=== PATIENT | male | born 1955 | race Caucasian/White ===

== ENCOUNTER 2016-10-31 06:51 | Observation (INO) | payer BC ==
[~2016-10-31] VITALS: Ht 190.5 cm; Wt 113.4 kg
[2016-10-31] MEDS ORDERED: ASPIRIN 81 MG CHEW PO STA (07:15)
[2016-10-31] MEDS ORDERED: DILTIAZEM HCL 5 MG/ML 5 ML VIAL IV STA (07:15)
[2016-10-31 07:34] LABS: BASO % 0.2 %; BASO ABS # 0.03 K/uL (0-0.2); COMPLETE YES; EOS % 0.6 %; HEMATOCRIT 45.2 % (42-52); IG% 0.2 %; LYMPH ABS # 2.55 K/uL (1.2-3.4); MEAN CORPUSCULAR HEMOGLOBIN 33.9 pg (25-34); MEAN CORPUSCULAR HGB CONC 36.1 g/dl (32-36); MEAN PLATELET VOLUME 10.4 fL (7.4-10.4); MONO % 8.3 %; NEUT % 75.7 %; PLATELET COUNT 274 K/uL (130-400); RED BLOOD COUNT 4.81 M/uL (4.7-6.1); WHITE BLOOD COUNT 17.05 K/uL (4.8-10.8)
[2016-10-31] MEDS ORDERED: LISI20TA3 PO (07:41)
[2016-10-31 07:42] LABS: BUN/CREATININE RATIO 15.2 (10-20); CALCIUM 8.7 mg/dl (8.5-10.1); CREATININE 0.96 mg/dl (0.60-1.40); MAGNESIUM 2.4 mg/dl (1.8-2.4); PARTIAL THROMBOPLASTIN RATIO 1.1; POTASSIUM 4.1 mmol/L (3.5-5.1); PROTHROMBIN TIME (PATIENT) 10.3 SECONDS (9.0-12.0)
--- NOTE | 2016-10-31 07:54 | EMERGENCY ROOM VISIT NOTE ---
History First contact with patient: 07:01 Chief Complaint: CARDIAC ASSESSMENT Stated Complaint: HEART FLIPPING ALL OVER Nursing Triage Summary: Patient reports pressure feeling in his left chest since around 0100. Denies any cardiac history. History of Present Illness The patient is a 61 year old male who presents to the Emergency Department by private vehicle for evaluation of palpitations. The patient reports that at 1: 30 this morning upon awakening to use restroom, he experienced palpitations in his chest. He reports that his symptoms have been ongoing since. He was able to get some sleep last night despite the symptoms. He describes a "pressure" in his chest at times bringing his discomfort a 4/10. He denies any shortness of breath, dizziness, lightheadedness, nausea, vomiting, or presyncope. He reports no history of similar symptoms. He does report a history of hypertension which is controlled with 20 mg of Cipro only. He reports no history of cholesterol issues. There is a 50 history of heart disease as his younger brother recently had double bypass. The patient denies any recent drug use. He reports that he was sick approximately one month ago, however the reports that they use no [id number] medications, specifically no Sudafed. Patient does admit to drinking approximately 32 ounces of beer per day. There is been no recent heavy alcohol use. The patient denies any nicotine use or other stimulant use. Patient denies any fevers, chills, headaches, blurry vision, double vision, slurred speech, facial droop, unilateral weakness/ numbness, hemoptysis, nausea, vomiting, abdominal pain, medication, melena, hematuria, or dysuria. Review of Systems A complete 10-point Review of Systems was discussed with the patient, with pertinent positives and negatives listed in the History of Present Illness. All remaining Review of Systems questions can be considered negative unless otherwise specified. Past Medical/Surgical History Medical Problems: (1) HTN (hypertension) (2) Obesity (BMI 30.0-34.9) Social History Smoking Status: Never Smoker Smokeless Tobacco Use: No Alcohol Use: occasionally Drug Use: none Marital Status: Housing Status: lives with family Current/Historical Medications Scheduled Lisinopril (Prinivil), 20 MG PO DAILY Allergies Coded Allergies: No Known Allergies (Unverified , +, 08/10/05) Physical Exam Vital Signs Date Time Temp Pulse Resp B/P Pulse Ox O2 Delivery O2 Flow Rate FiO2 10/31/16 08:30 78 20 122/86 100 Room Air 10/31/16 07:24 82 10/31/16 07:09 179 10/31/16 07:07 96 Room Air 10/31/16 07:07 96 Room Air 10/31/16 06:58 36.7 91 18 134/88 95 Room Air Pain Rating (0-10): 4 Physical Exam VITAL SIGNS - Vital signs and nursing notes were reviewed. GENERAL - 61-year-old male appearing his stated age who is in no acute distress. Communicates well with provider and answers questions appropriately. LUNGS - Chest wall symmetric without accessory muscle use, intercostals retractions, or central cyanosis. Normal vesicular breath sounds CTA B/L. No wheezes, rales, or rhonchi appreciated. CARDIAC - Irregularly irregular rhythm. No murmur, rubs, or gallops appreciated. No reproducible tenderness to palpation appreciated over the anterior chest wall. ABDOMEN - Abdominal contour flat and without pulsations or visible masses. BS normoactive all four quadrants. No tenderness, palpable masses, hepatosplenomegaly, or ascites noted. EXTREMITIES - No clubbing or peripheral cyanosis. No pretibial edema present. +3 /5 radial and dorsalis pedis pulses palpated throughout. +5/5 strength noted in UE/LE bilaterally. NEUROLOGIC - Cranial nerves II through XII grossly intact. Sensory intact to light touch throughout. PSYCH - A&Ox3 and cooperates fully with examiner. Pt is very pleasant and interacts well with examiner. Medical Decision & Procedures ER Provider Diagnostic Interpretation: Radiological imaging and reports were reviewed by myself. Radiologist's Interpretation as follows: CHEST ONE VIEW PORTABLE CLINICAL HISTORY: palp mental status change. Palpitations. Cardiac arrhythmia. COMPARISON STUDY: None FINDINGS: The bones soft tissues and hemidiaphragms are normal. The cardiomediastinal silhouette is normal. The lungs are clear. The pulmonary vasculature is normal. IMPRESSION: Negative chest. Laboratory Results 10/31/16 07:09 Red Blood Count 4.81, Mean Corpuscular Volume 94.0, Mean Corpuscular Hemoglobin 33.9, Mean Corpuscular Hemoglobin Concent 36.1, Mean Platelet Volume 10.4, Neutrophils (%) (Auto) 75.7, Lymphocytes (%) (Auto) 15.0, Monocytes (%) (Auto) 8.3, Eosinophils (%) (Auto) 0.6, Basophils (%) (Auto) 0.2, Neutrophils # (Auto) 12.90, Lymphocytes # (Auto) 2.55, Monocytes # (Auto) 1.42, Eosinophils # (Auto) 0.11, Basophils # (Auto) 0.03 10/31/16 07:09 Test 10/31/16 07:09 White Blood Count 17.05 K/uL (4.8-10.8) Red Blood Count 4.81 M/uL (4.7-6.1) Hemoglobin 16.3 g/dL (14.0-18.0) Hematocrit 45.2 % (42-52) Mean Corpuscular Volume 94.0 fL (80-100) Mean Corpuscular Hemoglobin 33.9 pg (25-34) Mean Corpuscular Hemoglobin Concent 36.1 g/dl (32-36) Platelet Count 274 K/uL (130-400) Mean Platelet Volume 10.4 fL (7.4-10.4) Neutrophils (%) (Auto) 75.7 % Lymphocytes (%) (Auto) 15.0 % Monocytes (%) (Auto) 8.3 % Eosinophils (%) (Auto) 0.6 % Basophils (%) (Auto) 0.2 % Neutrophils # (Auto) 12.90 K/uL (1.4-6.5) Lymphocytes # (Auto) 2.55 K/uL (1.2-3.4) Monocytes # (Auto) 1.42 K/uL (0.11-0.59) Eosinophils # (Auto) 0.11 K/uL (0-0.5) Basophils # (Auto) 0.03 K/uL (0-0.2) RDW Standard Deviation 43.3 fL (36.4-46.3) RDW Coefficient of Variation 12.6 % (11.5-14.5) Immature Granulocyte % (Auto) 0.2 % Immature Granulocyte # (Auto) 0.04 K/uL (0.00-0.02) Prothrombin Time 10.3 SECONDS (9.0-12.0) Prothromb Time International Ratio 1.0 (0.9-1.1) Activated Partial Thromboplast Time 27.5 SECONDS (21.0-31.0) Partial Thromboplastin Ratio 1.1 Anion Gap 11.0 mmol/L (3-11) Est Creatinine Clear Calc Drug Dose 112.5 ml/min Estimated GFR () 99.9 Estimated GFR (Non- 86.2 BUN/Creatinine Ratio 15.2 (10-20) Calcium Level 8.7 mg/dl (8.5-10.1) Magnesium Level 2.4 mg/dl (1.8-2.4) Total Bilirubin 0.3 mg/dl (0.2-1) Aspartate Amino Transf (AST/SGOT) 12 U/L (15-37) Alanine Aminotransferase (ALT/SGPT) 21 U/L (12-78) Alkaline Phosphatase 77 U/L (45-117) Total Protein 7.0 gm/dl (6.4-8.2) Albumin 3.6 gm/dl (3.4-5.0) Globulin 3.4 gm/dl (2.5-4.0) Albumin/Globulin Ratio 1.1 (0.9-2) Lipase 200 U/L (73-393) Thyroid Stimulating Hormone (TSH) 0.933 uIu/ml (0.300-4.500) Lyme Disease IgG Antibody NEG (NEG) Lyme Disease IgM Antibody NEG (NEG) Medications Administered Medications (Trade) Dose Ordered Sig/Edison Route Start Time Stop Time Status Last Admin Dose Admin Aspirin 243 mg 243 mg NOW STAT PO 10/31/16 07:15 10/31/16 07:21 DC 10/31/16 07:34 243 MG Sodium Chloride (Nss 1000ml) 1,000 ml @ 999 mls/hr Q1H1M ONCE IV 10/31/16 09:30 10/31/16 10:30 DC 10/31/16 12:24 999 MLS/HR Metoprolol Succinate (Toprol Xl Tab) 50 mg NOW STAT PO 10/31/16 09:26 10/31/16 10:06 DC 10/31/16 14:41 50 MG Procedure Patient was placed on the air sampling and monitoring and monitored throughout the entire extent of their stay. In addition, the patient's pulse oximetry was monitored throughout the entire stay. Any abnormalities or aberrancies were addressed appropriately. ECG Indication: palpitations Rate (beats per minute): 175 Rhythm: atrial fibrillation Findings: no acute ischemic change Comparison ECG Date: no prior available Change: Repeat EKG at 0733 demonstrates return to normal sinus rhythm at a rate of 87 bpm. No acute ischemic changes otherwise. ED Course Patient was seen and evaluated by myself. Labs were drawn, saline lock in place. EKG and chest x-ray were obtained. On initial evaluation, the patient' s heart rate fluctuated to the 180s. The patient remained symptomatic. Case was discussed my attending physician who agrees with diagnostic approach and treatment plan. The patient was ordered 243 mg baby aspirin as well as initial 20 mg bolus of Cardizem intravenously. I was contacted by nursing staff reports that just prior to giving the Cardizem, the patient converted to normal sinus. A repeat EKG was obtained which demonstrated a normal sinus rhythm at a rate of 87 beats per minute. Patient was reevaluated and reports no palpitations at this point. Laboratory results demonstrate a moderate leukocytosis of greater than 17,000. The patient is not anemic. There is no significant electrolyte abnormalities. Troponin was elevated at 0.067. Lyme titer was found to be negative. Laboratory results and imaging studies were reviewed with the patient and family who acknowledges understanding. Case was discussed with the [facility] hospitalist who agrees to accept the patient for further evaluation and management. The patient was admitted in stable condition. Medical Decision Given the patient's presentation and stated complaints, I did elect to perform the above-mentioned workup. The patient presents with complaints of palpitations. Patient was initially asymptomatic despite a heart rate of greater than 180. I did elect to treat the patient with Cardizem, however at the time of treatment, the patient converted back to normal sinus rhythm. Initial heart rate was only 91 in triage. I suspect the patient has been experiencing paroxysmal atrial fibrillation throughout the night. His white blood cell count was elevated suggesting moderate stress likely related to his tachycardia. Despite his symptoms, the patient is completely asymptomatic. His troponin was elevated likely secondary to ongoing atrial fibrillation symptoms. Patient was treated with a full dose of aspirin in the emergency setting. He remains a symptomatically and with a normal sinus rhythm on monitor. Patient does have significant family history of cardiac disease with his younger brother recently having bypass. I feel that this is warranting further evaluation from inpatient standpoint. The patient was admitted in stable condition. In the evaluation and treatment of this patient, the following differential diagnoses were considered: TN, ASC, Dysrhythmia, Angina, Mediastinitis, GERD, Esophagitis, PE, Pneumonia, Bronchitis, Costochondritis, Rib Fracture, Zoster. Impression Primary Impression: Atrial fibrillation with rapid ventricular response Departure Information Dispostion Admitted as an inpatient Condition FAIR Referrals Adryan Stallworth M.D. (PCP) Patient Instructions [facility]
[2016-10-31 08:06] LABS: ALB/GLOB RATIO 1.1 (0.9-2); THYROID STIMULATING HORMONE 0.933 uIu/ml (0.300-4.500)
--- NOTE | 2016-10-31 08:13 | DIAGNOSTIC IMAGING REPORT ---
CHEST ONE VIEW PORTABLE CLINICAL HISTORY: palp mental status change. Palpitations. Cardiac arrhythmia. COMPARISON STUDY: None FINDINGS: The bones soft tissues and hemidiaphragms are normal. The cardiomediastinal silhouette is normal. The lungs are clear. The pulmonary vasculature is normal. IMPRESSION: Negative chest. Electronically signed by: Miguel Faith M.D. 10/31/2016 8:12 AM Dictated Date/Time: 10/31/2016 8:11 AM
[2016-10-31 08:22] LABS: LYME DISEASE AB IGG NEG (NEG); LYME DISEASE AB IGM NEG (NEG)
[2016-10-31] MEDS ORDERED: METOPROLOL SUCC 50MG EXT REL TAB PO STA (09:26)
--- NOTE | 2016-10-31 09:26 | History and Physical ---
History & Physical Date & Time of Service: Oct 31, 2016 at 08:59 Chief Complaint: Heart Flipping All Over Primary Care Physician: Adryan Stallworth M.D. History of Present Illness Source: patient, hospital records This patient is a pleasant 61-year-old male that presents emergency department this morning complaining of a fluttering with his heart that started around 1 in the morning. It has been fairly constant since. He denies any dizziness or lightheadedness. He did feel some chest pressure on the left side of his chest. That has now dissipated. He denies any recent illnesses. In the emergency department, the patient was found to be in A. fib with RVR. Heart rate was in the 180s. Blood pressure was stable. Medications were ordered, however the patient spontaneously converted back into normal sinus rhythm on his own. The patient denies any new medications. He denies any increase in caffeine intake recently. No recent changes in exercise programs. He does admit to drinking approximately 32 ounces of beer each night. This has not recently changed. He does not smoke. He denies any known history of heart disease. Past Medical/Surgical History Hypertension Family History Father-had a stent placed in his 80s Brother had bypass surgery at the age of 57 Mother-cancer Social History Smoking Status: Never Smoker Smokeless Tobacco Use: No Alcohol Use: heavy (drinks approximately 32 ounces of beer a night) Drug Use: none Marital Status: Housing status: lives with significant other Occupational Status: unemployed ([id number] father) Multi-Drug Resistant Organisms History of MDRO: No Allergies Coded Allergies: No Known Allergies (Unverified , +, 08/10/05) Home Medications Scheduled Lisinopril (Prinivil), 20 MG PO DAILY Review of Systems 10 system review performed and negative unless noted in HPI or below Physical Exam Vital Signs Date Time Temp Pulse Resp B/P Pulse Ox O2 Delivery O2 Flow Rate FiO2 10/31/16 08:30 78 20 122/86 100 Room Air 10/31/16 07:09 179 10/31/16 07:07 96 Room Air 10/31/16 07:07 96 Room Air 10/31/16 06:58 36.7 91 18 134/88 95 Room Air General Appearance: no apparent distress Head: normocephalic Eyes: EOMI Neck: no JVD Respiratory/Chest: lungs clear Cardiovascular: regular rate, rhythm, no murmur Abdomen/GI: normal bowel sounds, non tender, soft Extremities/Musculoskelatal: no calf tenderness, no pedal edema Neurologic/Psych: no motor/sensory deficits, oriented x 3 Skin: warm/dry Diagnostics Laboratory Results Results Past 24 Hours Test 10/31/16 07:09 Range/Units White Blood Count 17.05 4.8-10.8 K/uL Red Blood Count 4.81 4.7-6.1 M/uL Hemoglobin 16.3 14.0-18.0 g/dL Hematocrit 45.2 42-52 % Mean Corpuscular Volume 94.0 80-100 fL Mean Corpuscular Hemoglobin 33.9 25-34 pg Mean Corpuscular Hemoglobin Concent 36.1 32-36 g/dl Platelet Count 274 130-400 K/uL Mean Platelet Volume 10.4 7.4-10.4 fL Neutrophils (%) (Auto) 75.7 % Lymphocytes (%) (Auto) 15.0 % Monocytes (%) (Auto) 8.3 % Eosinophils (%) (Auto) 0.6 % Basophils (%) (Auto) 0.2 % Neutrophils # (Auto) 12.90 1.4-6.5 K/uL Lymphocytes # (Auto) 2.55 1.2-3.4 K/uL Monocytes # (Auto) 1.42 0.11-0.59 K/uL Eosinophils # (Auto) 0.11 0-0.5 K/uL Basophils # (Auto) 0.03 0-0.2 K/uL RDW Standard Deviation 43.3 36.4-46.3 fL RDW Coefficient of Variation 12.6 11.5-14.5 % Immature Granulocyte % (Auto) 0.2 % Immature Granulocyte # (Auto) 0.04 0.00-0.02 K/uL Prothrombin Time 10.3 9.0-12.0 SECONDS Prothromb Time International Ratio 1.0 0.9-1.1 Activated Partial Thromboplast Time 27.5 21.0-31.0 SECONDS Partial Thromboplastin Ratio 1.1 Sodium Level 147 136-145 mmol/L Potassium Level 4.1 3.5-5.1 mmol/L Chloride Level 110 98-107 mmol/L Carbon Dioxide Level 26 21-32 mmol/L Anion Gap 11.0 3-11 mmol/L Blood Urea Nitrogen 15 7-18 mg/dl Creatinine 0.96 0.60-1.40 mg/dl Est Creatinine Clear Calc Drug Dose 112.5 ml/min Estimated GFR () 99.9 Estimated GFR (Non- 86.2 BUN/Creatinine Ratio 15.2 10-20 Random Glucose 99 70-99 mg/dl Calcium Level 8.7 8.5-10.1 mg/dl Magnesium Level 2.4 1.8-2.4 mg/dl Total Bilirubin 0.3 0.2-1 mg/dl Aspartate Amino Transf (AST/SGOT) 12 15-37 U/L Alanine Aminotransferase (ALT/SGPT) 21 12-78 U/L Alkaline Phosphatase 77 45-117 U/L Total Creatine Kinase 48 39-308 U/L Creatine Kinase MB 1.9 0.5-3.6 ng/ml Creatine Kinase MB Ratio 4.0 0-3.0 Troponin I 0.067 0-0.045 ng/ml Total Protein 7.0 6.4-8.2 gm/dl Albumin 3.6 3.4-5.0 gm/dl Globulin 3.4 2.5-4.0 gm/dl Albumin/Globulin Ratio 1.1 0.9-2 Lipase 200 73-393 U/L Thyroid Stimulating Hormone (TSH) 0.933 0.300-4.500 uIu/ml Lyme Disease IgG Antibody NEG NEG Lyme Disease IgM Antibody NEG NEG Diagnostic Radiology CHEST ONE VIEW PORTABLE CLINICAL HISTORY: palp mental status change. Palpitations. Cardiac arrhythmia. COMPARISON STUDY: None FINDINGS: The bones soft tissues and hemidiaphragms are normal. The cardiomediastinal silhouette is normal. The lungs are clear. The pulmonary vasculature is normal. IMPRESSION: Negative chest. EKG Vent. rate 175 BPM CA interval * ms QRS duration 86 ms QT/QTc 266/453 ms P-R-T axes * -14 49 Atrial fibrillation with rapid ventricular response Abnormal ECG No previous ECGs available 10/31/2016 07:05 Impression Assessment and Plan 61-year-old gentleman presents emergency department with heart palpitations and mild chest pressure found to be in rapid atrial fibrillation with a rate of 175 bpm-spontaneously converted in the emergency department. Labs notable for a mild elevation in troponin 0.067 and a white count of 17,000. Sodium is 147. Possibly mild dehydration. Patient does admit to having mild flulike symptoms 3 weeks ago that have improved. Could be an exacerbating factor A fib with RVR -Check echo -Trend cardiac enzymes -Start Xarelto -Begin Toprol-XL 50 mg daily per attending -We will decrease his lisinopril to 10 mg daily -Check nocturnal pulse oximetry-?? SELENE Leukocytosis-?stress response. Pt did have 2 tick bites this week--lyme screen neg. Flu like sx-improved -check CBC in AM HTN-BP stable -Decrease in cerebral is noted above DVT prophylaxis -Xarelto -TEDS, SCDs CODE STATUS -LEVEL I FULL CODE Level of Care Telemetry Resuscitation Status FULL RESUSCITATION VTE Prophylaxis VTE Risk Assessment Done? Y/N: Yes Risk Level: Low Given or contraindicated: Other Anticoagulation, T.E.D. Stockings, SCD's Note Patient was seen and examined by myself I personally discussed the above A&P with Miss Michelet 61-year-old male that presents emergency department this morning complaining of palpitation found to be in A. fib with RVR. denies any chest pain, Will check TSH 2D echo cardiology consult nocturnal pulse ox lipids/HgbA1C initiate AC B rin decrease ACEI to make room for B Rin
[2016-10-31] MEDS ORDERED: MAGNESIUM HYDROXIDE SUSP 30 ML UDC PO PRN (09:30)
[2016-10-31] MEDS ORDERED: ALUMINUM/MAGNESIUM/SIMETH (MAALOX MAX) 30 ML UDC PO PRN (09:30)
[2016-10-31] MEDS ORDERED: ONDANSETRON INJ 2 MG/ML 2 ML VIAL IV PRN (09:30)
[2016-10-31] MEDS ORDERED: ACETAMINOPHEN 325 MG TAB PO PRN (09:30)
[2016-10-31] MEDS ORDERED: SODIUM CHLORIDE 0.9% 1000ML 1,000 ML IV ONE (09:30)
[2016-10-31 09:45] VITALS: BP 122/86; PULSE 74; TEMP 36.7; O2SAT 98; Ht 190.5 cm; Wt 113.4 kg
[2016-10-31 10:20] VITALS: O2SAT 100
[2016-10-31] MEDS ORDERED: IV FLUIDS COMPLETED PRN (10:30)
[2016-10-31 11:08] VITALS: BP 155/92; PULSE 76; TEMP 36.8; O2SAT 98
[2016-10-31] MEDS ORDERED: RIVAROXABAN 20 MG TAB PO SCH (12:00)
--- NOTE | 2016-10-31 14:01 | ECHOCARDIOGRAM REPORT ---
*NOTICE TO RECEIVING LIBERTARIAN AGENCY This information is strictly Confidential and protected under [place] law. [place] law prohibits you from making any further disclosure of this information unless further disclosure is expressly permitted by the written consent of the person to whom it pertains or is authorized by law. A general authorization for the release of medical or other information is not sufficient for this purpose. Hospital accepts no responsibility if the information is made available to any other person, INCLUDING THE PATIENT. Interpretation Summary * Name: SANDRA SON Study Date: 10/31/2016 10:04 AM BP: 142/90 mmHg * Patient Location: [facility] HR: 79 * : 1955 (M/d/yyyy) Gender: Male Height: 75 in * Age: 61 yrs Ethnicity: CA Weight: 249 lb * Ordering Physician: Margaux Tafoya * Referring Physician: CHUCKY * Performed By: Mary Patrick RDCS * * Reason For Study: AFIB * BSA: 2.4 m2 * History: AFIB * -- Conclusions -- * 1. Borderline dilated LV. Mild concentric LVH. * 2. Normal LV systolic function. LVEF 55-60%. No regional wall motion abnormalities. Grade 2 diastolic dysfunction. * 3. Mildly dilated RV with normal RV function. Moderate RA dilation. * 4. No significant valvular pathology. * 5. No prior studies for comparison. Procedure Details * A complete two-dimensional transthoracic echocardiogram was performed (2D, M-mode, Doppler and color flow Doppler). Left Ventricle * The left ventricle is borderline dilated. * There is mild concentric left ventricular hypertrophy. * The basal septum is thickened and angulated consistent with sigmoid septum. * Ejection Fraction = 55-60%. Right Ventricle * The right ventricle is mildly dilated. * The right ventricular systolic function is normal as assessed by tricuspid annular plane systolic excursion (TAPSE) (normal >1.5 cm). Atria * The left atrium is mildly dilated. * The right atrium is moderately dilated. * No ASD detected; PFO is not assessed. Mitral Valve * The mitral valve leaflets appear thickened, but open well. * Mitral stenosis is absent. * Significant mitral regurgitation is absent. Tricuspid Valve * The tricuspid valve is not well visualized, but is grossly normal. * There is no tricuspid stenosis. * Significant tricuspid regurgitation is absent. Aortic Valve * The aortic valve opens well. * The aortic valve is trileaflet. * No hemodynamically significant valvular aortic stenosis. * There is no significant aortic regurgitation. Pulmonic Valve * The pulmonary valve is inadequately visualized, but the Doppler data is adequate for interpretation. * Mild pulmonic valvular regurgitation. Great Vessels * Borderline dilated ascending aorta. * No Doppler or imaging evidence of an aortic coarctation. Pericardium/Pleural * There is no pericardial effusion. Great Vessels * IVC < 2.1, <50% change with respiration Left Ventricular Diastolic Function * Diastolic dysfunction, Grade II (pseudonormalization pattern). MMode 2D Measurements and Calculations IVSd 1.4 cm IVSs 2.1 cm LVIDd 5.5 cm LVIDs 3.7 cm LVPWd 1.2 cm LVPWs 1.7 cm IVS/LVPW 1.1 FS 33.2 % EDV(Teich) 147.2 ml ESV(Teich) 57.1 ml EF(Teich) 61.2 % EDV(cubed) 166.0 ml ESV(cubed) 49.5 ml EF(cubed) 70.2 % % IVS thick 48.2 % % LVPW thick 40.7 % LV mass(C)d 305.3 grams LV mass(C)dI 126.8 grams/m\S\2 LV mass(C)s 302.9 grams LV mass(C)sI 125.7 grams/m\S\2 SV(Teich) 90.1 ml SI(Teich) 37.4 ml/m\S\2 SV(cubed) 116.5 ml SI(cubed) 48.4 ml/m\S\2 Ao root diam 3.9 cm Ao root area 11.9 cm\S\2 LA dimension 4.2 cm LA/Ao 1.1 LVAd ap4 41.0 cm\S\2 LVLd ap4 9.9 cm EDV(MOD-sp4) 141.5 ml EDV(sp4-el) 145.0 ml LVAs ap4 24.1 cm\S\2 LVLs ap4 8.2 cm ESV(MOD-sp4) 64.6 ml ESV(sp4-el) 60.3 ml EF(MOD-sp4) 54.3 % EF(sp4-el) 58.4 % LVAd ap2 39.6 cm\S\2 LVLd ap2 9.9 cm EDV(MOD-sp2) 133.4 ml EDV(sp2-el) 134.2 ml LVAs ap2 24.0 cm\S\2 LVLs ap2 8.6 cm ESV(MOD-sp2) 65.0 ml ESV(sp2-el) 57.0 ml EF(MOD-sp2) 51.3 % EF(sp2-el) 57.6 % LVLd %diff 0.62 % EDV(MOD-bp) 137.1 ml LVLs %diff 4.7 % ESV(MOD-bp) 66.3 ml EF(MOD-bp) 51.7 % SV(MOD-sp4) 76.8 ml SI(MOD-sp4) 31.9 ml/m\S\2 SV(MOD-sp2) 68.4 ml SI(MOD-sp2) 28.4 ml/m\S\2 SV(MOD-bp) 70.8 ml SI(MOD-bp) 29.4 ml/m\S\2 SV(sp4-el) 84.7 ml SI(sp4-el) 35.2 ml/m\S\2 SV(sp2-el) 77.2 ml SI(sp2-el) 32.1 ml/m\S\2 Doppler Measurements and Calculations MV E max funmi 63.4 cm/sec MV A max funmi 55.7 cm/sec MV E/A 1.1 MV dec time 0.29 sec Ao V2 max 129.9 cm/sec Ao max PG 6.8 mmHg Ao max PG (full) 2.8 mmHg LV V1 max PG 4.0 mmHg LV V1 max 99.4 cm/sec
[2016-10-31 15:10] LABS: URINE APPEARANCE TURBID (CLEAR); URINE BILIRUBIN NEG (NEG); URINE COLOR YELLOW; URINE NITRITE NEG (NEG); URINE PH 8.5 (4.5-7.5); URINE SPECIFIC GRAVITY 1.018 (1.000-1.030); UROBILINOGEN NEG (NEG); ZZUR CULT IF INDIC CLEAN CATCH NO
[2016-10-31 15:11] LABS: MANUAL MICROSCOPIC REQUIRED? NO; REVIEW REQ? NO
[2016-10-31 15:23] VITALS: BP 160/93; PULSE 66; TEMP 36.7; O2SAT 95
[2016-10-31 15:31] LABS: BENZODIAZEPINE, URINE NEG (NEG); COCAINE,URINE NEG (NEG); PHENCYCLIDINE, URINE NEG (NEG)
[2016-10-31 16:01] LABS: CKMB/CK RATIO 3.2 (0-3.0)
[2016-10-31 19:10] VITALS: BP 155/93; PULSE 68; TEMP 37; O2SAT 95
--- NOTE | 2016-10-31 23:39 | CARDIOLOGY CONSULTATION REPORT ---
DATE OF CONSULTATION: 10/31/2016 REASON FOR CONSULTATION: New onset of Atrial Fibrillation with RVR. HISTORY OF PRESENT ILLNESS: Mr. Karimi is a very pleasant 61-year-old white male with a history of longstanding Hypertension, who presented acutely to Emergency Room earlier today complaining of fluttering in his chest which began between 1 and 2 a.m. this morning. He got up to use the restroom at that time of the night, and he could feel his heart racing. He did note some left-sided chest pressure with this, but denies any associated nausea, vomiting, diaphoresis, or dyspnea. He has never experienced anything like this before. The patient denies any prior cardiac history or prior cardiac events. He denies any history of CAD, CT, CHF, rheumatic fever or any prior dysrhythmias. He does not have any history of stroke or mini stroke. He is not a diabetic. Please note that the patient converted back to a normal sinus rhythm spontaneously while in the Emergency Room. The patient is currently being seen in room 238 bed 1, and he offers no complaints. He specifically denies any further palpitations or tachy palpitations. He denies any chest pain, heaviness, tightness, or pressure. No neck, jaw, back, or arm pain. No shortness of breath, dyspnea on exertion, or any recent changes in exertional tolerance. He further denies any orthopnea, PND, syncope, or near syncope. HOME MEDICATIONS: Lisinopril 20 mg daily. CURRENT MEDICATIONS: 1. Lisinopril 10 mg daily. 2. Xarelto 20 mg daily. 3. Tylenol p.r.n. 4. Maalox Max p.r.n. 5. Milk of magnesia p.r.n. 6. Zofran 4 mg IV q. 6 hours p.r.n. for nausea. ALLERGIES: NKDA. PAST MEDICAL HISTORY: 1. Hypertension. SOCIAL HISTORY: The patient is and lives in the [facility]. 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 Drinks approximately 32 ounces of beer each evening. He is a lifelong nonsmoker. FAMILY HISTORY: Significant for CAD in his father who had a stent placed in his 80s. He has a younger brother who had lymphoma with full mantle radiation and who subsequently had CABG x2 vessels at the age of 57. Mother had cancer. PHYSICAL EXAMINATION: VITAL SIGNS: Temperature is 36.7 degrees Celsius, pulse is 74 and regular, respiratory rate is 14 and unlabored, blood pressure is 122/86. SpO2 is 98% on room air. GENERAL: The patient is in no acute distress. HEENT: Head is atraumatic and normocephalic. EOMs intact. Sclerae are anicteric. Face is symmetric. No perioral cyanosis. Mucous membranes moist. NECK: Without thyromegaly, adenopathy or JVD. Carotid upstrokes are +2 bilaterally without bruits. CHEST AND LUNGS: Clear to auscultation throughout lung lynn. No wheezes, rales or rhonchi. CARDIOVASCULAR: S1 and S2 are regular without murmur, gallops or rubs. PMI is not displaced. No lifts, heaves, or thrills. No abdominal, aortic or renal bruits. ABDOMINAL EXAMINATION: Bowel sounds are present. No masses, organomegaly, or tenderness. EXTREMITIES: Without clubbing, cyanosis or edema. NEUROLOGIC EXAMINATION: The patient is awake, alert and oriented. Pleasant and cooperative. Answers questions appropriately. Speech is clear. Normal movement in all 4 extremities. EKG on admission shows AFib with RVR, ventricular response rate is approximately 175 beats per minute. No ST segment or T-wave abnormalities. A follow up EKG following spontaneous conversion shows normal sinus rhythm at a rate of 85 beats per minute with normal R-wave progression, no acute changes. LABORATORIES: Lyme titer is negative. White blood cell count is 17.05, hemoglobin 16.3 g/dL, hematocrit 45.2%, platelet count is 274,000. Sodium is 147 mmol/L, potassium 4.1 mmol/L, BUN is 15 mg/dL and creatinine 0.96 mg/dL. Random glucose 99 mg/dL, magnesium normal at 2.4 mg/dL. Total CK is 48 with CK-MB of 1.9. Initial Troponin I is 0.067 ng/mL. TSH normal at 0.933. Chest x-ray is unremarkable. ASSESSMENT: 1. New onset of Atrial Fibrillation with rapid ventricular response. 2. Status post spontaneous conversion to normal sinus rhythm. 3. Sensation of left-sided chest pressure with rapid ventricular response rate with mildly elevated troponin I level. 4. CHADS-VASc score is 1 (based on hypertension). PLAN: 1. I had a long discussion with the patient regarding what atrial fibrillation is, the natural history of atrial fibrillation, and management strategies for the treatment of this condition. 2. He is currently in a normal sinus rhythm. 3. Recommend starting Toprol-XL 50 daily. 4. Continue lisinopril 10 mg daily. 5. Agree with Xarelto for the time being. Because he has a low CHADS-VASc score, could consider discontinuing this in the future. 6. He is aware of his elevated troponin I level. Continue to trend cardiac enzymes. This is most likely myocardial O2 supply-demand mismatch related to fast rate for > 5 hours; however, could not say for certain that he does not have some underlying CAD. Could consider cardiac catheterization in the future versus outpatient stress testing. 7. Agree with obtaining echocardiogram. 8. We will continue to follow along while hospitalized. AGGIE
[2016-10-31 23:50] LABS: CKMB/CK RATIO 4.3 (0-3.0)
[2016-11-01] VITALS: BP 153/85; PULSE 65; TEMP 36.6; O2SAT 96
[2016-11-01 03:50] VITALS: BP 143/82; PULSE 62; TEMP 36.8; O2SAT 97
[2016-11-01 07:33] VITALS: BP 149/103; PULSE 74; TEMP 37.1; O2SAT 95
[2016-11-01 07:50] LABS: BASO % 0.1 %; BASO ABS # 0.01 K/uL (0-0.2); COMPLETE YES; HEMATOCRIT 41.9 % (42-52); IG% 0.1 %; LYMPH % 22.2 %; LYMPH ABS # 1.75 K/uL (1.2-3.4); MEAN CELL VOLUME 94.4 fL (80-100); MEAN CORPUSCULAR HEMOGLOBIN 32.7 pg (25-34); MEAN CORPUSCULAR HGB CONC 34.6 g/dl (32-36); MEAN PLATELET VOLUME 10.4 fL (7.4-10.4); MONO % 9.5 %; NEUT % 67.1 %; PLATELET COUNT 211 K/uL (130-400); RED BLOOD COUNT 4.44 M/uL (4.7-6.1); WHITE BLOOD COUNT 7.89 K/uL (4.8-10.8)
[2016-11-01 08:06] LABS: ESTIMATED AVERAGE GLUCOSE 97 mg/dl; HA1C FLAG Normal (Normal)
[2016-11-01 08:15] LABS: BUN/CREATININE RATIO 15.2 (10-20); CALCIUM 8.2 mg/dl (8.5-10.1); CREATININE 0.81 mg/dl (0.60-1.40); MAGNESIUM 2.4 mg/dl (1.8-2.4); POTASSIUM 3.8 mmol/L (3.5-5.1)
[2016-11-01] MEDS ORDERED: LISINOPRIL 10 MG TAB PO SCH (09:00)
[2016-11-01] MEDS ORDERED: METOPROLOL SUCC 50MG EXT REL TAB PO SCH (09:00)
--- NOTE | 2016-11-01 10:32 | CARDIOLOGY PROGRESS NOTE ---
DATE: 11/01/2016 HISTORY OF PRESENT ILLNESS: Mr. Karimi is a very pleasant 61-year-old white male with history of longstanding hypertension, who presented acutely to [facility] on 10/31/2016 complaining of "fluttering" in his chest which began 5 hours before presentation. He was noted to be in rapid atrial fibrillation with a ventricular response rate of 175-185 beats per minute. No acute changes on his EKG otherwise. He did subsequently bump his troponin I level slightly, which raises a spectra of possible CAD. The patient spontaneously converted back to a normal sinus rhythm shortly after arriving at the Emergency Room. He has remained in a normal sinus rhythm since that time on telemetry monitoring. The patient offers no complaints today. He feels well. He denies any chest pain, heaviness, tightness or pressure. No neck, jaw, back or arm pain. No shortness of breath, unusual dyspnea on exertion, orthopnea or PND. No recurrent palpitations or fluttering. No syncope or near syncope. PHYSICAL EXAMINATION: VITAL SIGNS: Temperature is 37.1 degrees Celsius, pulse 70 and regular, respiratory rate is 14 and unlabored, blood pressure is 150/100, SpO2 is 95% on room air. HEENT: Head is atraumatic, normocephalic. EOMs intact. Sclerae are anicteric. Facies symmetric. No perioral cyanosis. Mucous membranes moist. NECK: Without thyromegaly, adenopathy or JVD. Carotid upstrokes +2 bilaterally without bruits. CHEST AND LUNGS: Clear to auscultation throughout all lung lynn. No wheezes, rales or rhonchi. CARDIOVASCULAR: S1 and S2 are regular without murmur, gallop or rub. PMI is nondisplaced. No lifts, heaves or thrills. No abdominal, aortic or renal bruits. ABDOMEN: Bowel sounds present. No masses, organomegaly or tenderness. EXTREMITIES: Without clubbing, cyanosis or edema. Intact posterior tibial and radial pulses bilaterally. Maico's test positive bilaterally. NEUROLOGIC: The patient is awake, alert and oriented. Pleasant and cooperative. Answers questions appropriately. Speech is clear. Normal movement in all 4 extremities. EKG performed this morning shows normal sinus rhythm at the rate of 64 beats per minute. No abnormalities noted. LABORATORY DATA: White blood cell count is 7.89. Hemoglobin 14.5 g/dL, hematocrit 41.9%, platelet count 211,000. Sodium is 140 mmol/L, potassium 3.8 mmol/L, BUN is 12 mg/dL, creatinine of 0.81 mg/dL. Random glucose is 104 mg/dL. Total CKs are 35, 38, and 48 units per liter with respective CK-MBs of 1.5, 1.2, and 1.9. Troponin I level, 0.135, 0.121, and 0.067 ng/mL. Urine drug screen positive for marijuana. Lyme titer negative. Telemetry monitoring reveals normal sinus rhythm throughout his hospital stay. ASSESSMENT: 1. New onset PAF with rapid ventricular response. 2. Elevated troponin I level -- Likely secondary to myocardial O2 supply-demand mismatch after being markedly tachycardic for > 5 hours. However, cannot rule out underlying coronary artery disease. 3. Longstanding hypertension. 4. CHADS-VASc score is 1 (based on hypertension). 5. Slight chest pressure associated with rapid atrial fibrillation. 6. No signs or symptoms of heart failure. 7. No signs or symptoms of stroke or mini stroke. PLAN: 1. The patient remains in a normal sinus rhythm. 2. Recommend discharging the patient to home on Toprol-XL 50 mg daily and Xarelto 20 mg daily. 3. Continue Lisinopril 10 mg a day. 4. I have discussed his abnormal cardiac enzymes and what this may signify. He verbalizes understanding of this discussion. 5. We will plan on meeting with the patient within the next 3-4 weeks in the office, and we will discuss cardiac catheterization for further evaluation of coronary anatomy at that time. 6. All of the patient and his 's questions were answered to their satisfaction. Our office will contact him with a followup visit in 3-4 weeks. Thank you for asking us to see this patient in consultation. AGGIE
[2016-11-01 11:33] VITALS: BP 154/86; PULSE 65; TEMP 36.9; O2SAT 96
[2016-11-01] MEDS ORDERED: XRL20 PO (11:36)
[2016-11-01] MEDS ORDERED: TPRSR50 PO (11:36)
[2016-11-01] MEDS ORDERED: LSN10 PO (11:36)
--- NOTE | 2016-11-01 11:37 | Discharge Instructions ---
Discharge Instructions Admission Admission Date: Oct 31, 2016 at 09:34 Admission Diagnosis: Atrial Fibrillation With Rvr. Discharge Care Plan - Problem: Medical Problems: (1) Atrial fibrillation with rapid ventricular response Care Plan - Goal(s): Improve function Care Plan - Instructions: Activity Recommendations: no limitations Recommended Home Diet: 1800 Nick Wt Reduction * Call 911 or immediately go to the Hospital Emergency Department nearest your location if you feel you have an emergent problem. Inpt VTE Proph given/why not?: Other Anticoagulation, T.E.D. Stockings, SCD's Laboratory Results Test Results: Hemoglobin A1c Test 11/01/16 07:18 Range/Units Estimated Average Glucose 97 mg/dl Hemoglobin A1c 5.0 4.5-5.6 % Lipid Panel Test 11/01/16 07:18 Range/Units Triglycerides Level 173 H 0-150 mg/dl Cholesterol Level 175 0-200 mg/dl HDL Cholesterol 44 mg/dl Cholesterol/HDL Ratio 4.0 LDL Cholesterol, Calculated 96 mg/dl Miah Maxwell Recommendations: Call your doctor if: * Temperature above 101 degrees * Pain not relieved by pain medicine ordered * There is increased drainage or redness from any incision * You have any unanswered questions or concerns. Your Doctors Instructions noted above were prepared by provider Fanny Forrester.
[2016-11-01 12:02] VITALS: BP 154/86; PULSE 65; TEMP 36.9; O2SAT 96
--- NOTE | 2016-11-01 12:15 | Discharge Summary ---
Discharge Summary Admission Date: Oct 31, 2016 at 09:34 Discharge Date: Nov 01, 2016 Discharge Disposition: Home Problems/Secondary Diagnoses: A fib with RVR Leukocytosis/reactive HTN-BP stable Medication Reconciliation New Medications: Lisinopril (Zestril) 10 Mg Tab 10 MG PO DAILY for 30 Days, #30 TAB 1 Refill Metoprolol Succinate (Metoprolol Succinate ER) 50 Mg Tabcr 50 MG PO QAM for 30 Days, #30 TAB 1 Refill Rivaroxaban (Xarelto) 20 Mg Tab 20 MG PO QDD for 30 Days, #30 TAB 1 Refill Discontinued Medications: Lisinopril (Prinivil) 20 Mg Tab 20 MG PO DAILY, TAB Referrals At Discharge Follow up Referrals: Wink Cutter Operator Referral - Within a Month with Luis Quezada M.D. Discharge Exam Review of Systems: Constitutional: No chills, No fatigue, No fever, No problem reported, No sweats, No weakness, No weight loss Eyes: No diplopia, No discharge, No eye pain, No problem reported, No redness, No worsening of vision ENT: No dental problems, No hearing loss, No nasal symptoms, No problem reported, No sore throat, No tinnitus, No trouble swallowing, No unusual epistaxis Respiratory: No cough, No dyspnea at rest, No dyspnea on exertion, No hemoptysis, No problem reported, No shortness of breath, No sputum, No wheezing Cardiovascular: No PND, No chest pain, No claudication, No edema, No orthopnea, No palpitations, No problem reported Abdomen: No GI bleeding, No constipation, No diarrhea, No nausea, No pain, No problem reported, No vomiting Musculoskeletal: No calf pain, No joint pain, No muscle pain, No problem reported, No swelling Neurologic: No balance problems, No memory loss, No numbness/tingling, No paralysis, No problem reported, No vertigo, No weakness Psychiatric: No anhedonism, No anxiety, No depression symptoms, No insomnia , No problem reported, No substance abuse Endocrine: No excessive thirst, No excessive urination, No fatigue, No problem reported Hematologic / Lymphatic: No abnormal bleeding/bruising, No clotting problems , No night sweats, No problem reported, No swollen lymph nodes Integumentary: No bleeding, No color change, No itch, No new/changing skin lesions, No problem reported, No rash Physical Exam: General Appearance: WD/WN, no apparent distress Eyes: normal inspection, EOMI ENT: normal ENT inspection, hearing grossly normal Neck: supple Respiratory/Chest: chest non-tender, lungs clear, normal breath sounds, no respiratory distress, no accessory muscle use Cardiovascular: regular rate, rhythm, no edema, no gallop, no JVD, no murmur , normal peripheral pulses Abdomen / GI: normal bowel sounds, non tender, soft Extremities: normal inspection, no calf tenderness, no pedal edema Neurologic/Psychiatric: strategic solutions consultant II-XII nml as tested, no motor/sensory deficits , alert, normal mood/affect, normal reflexes, oriented x 3 Skin: normal color, warm/dry, no rash Hospital Course 61-year-old gentleman presents emergency department with heart palpitations and mild chest pressure found to be in rapid atrial fibrillation with a rate of 175 bpm-spontaneously converted in the emergency department. seen by strategic planner and started on Xarelto and toprol XL. he was on lisinopril as an out patient which was decreased to 10mg po daily. He was instructed to check his BP at home daily. 2D echo was obtained, results are attached below. He had a nocturnal pulse ox study that showed no hypoxia. He is cleared for discharge by strategic planner and will have a cardiac in 3-4 weeks. 2D echo: * 1. Borderline dilated LV. Mild concentric LVH. * 2. Normal LV systolic function. LVEF 55-60%. No regional wall motion abnormalities. Grade 2 diastolic dysfunction. * 3. Mildly dilated RV with normal RV function. Moderate RA dilation. * 4. No significant valvular pathology. * 5. No prior studies for comparison. Total Time Spent: Greater than 30 minutes This includes examination of the patient, discharge planning, medication reconciliation, and communication with other providers. Discharge Instructions Please refer to the electronic Patient Visit Report (Discharge Instructions) for additional information.
--- NOTE | 2016-11-01 19:42 | EMERGENCY ROOM VISIT NOTE ---
ED Visit Note First contact with patient: 07:01 I have personally seen and evaluated the patient with the PA. I agree with the diagnosis and management decisions and have been personally involved in the case. Patient was evaluated and appeared to be in no significant distress. Patient was given IV Cardizem and oral aspirin. He was well controlled and converted to a sinus rhythm after. Laboratory work reveals an elevated troponin. Please see Yonatan Duque PA-C's notes for further details of the history, physical and visit.
== END 2016-11-01 12:24 | disposition home or self-care (01) ==
LOC: ENRESERVDT → ENRESERVTM → C.EDB 06:53 → C.2T 09:34
PROVIDERS: ADMIT Internal Medicine; ATTEND Internal Medicine
DX: I11.9 Hypertensive heart disease without heart failure (principal); I48.0 Paroxysmal atrial fibrillation; D72.829 Elevated white blood cell count, unspecified; R78.89 Finding of other specified substances, not normally found in blood; E66.9 Obesity, unspecified; Z51.81 Encounter for therapeutic drug level monitoring; Z79.899 Other long term (current) drug therapy; Z68.31 Body mass index [BMI] 31.0-31.9, adult; Z72.89 Other problems related to lifestyle; Z82.49 Family history of ischemic heart disease and other diseases of the circulatory system; Z80.7 Family history of other malignant neoplasms of lymphoid, hematopoietic and related tissues

== ENCOUNTER → 2016-11-23 | Outpatient (CLI) | payer BC ==
[~2016-11-23] MED LIST: LSN10 PO; TPRSR50 PO; XRL20 PO
--- NOTE | 2016-11-23 15:00 | MYOCARDIAL PERFUSION SCAN ---
REASON FOR STUDY: Elevated troponin, previously in the setting of atrial fibrillation. STUDY: One-day nuclear medicine technetium-99m Cardiolite myocardial perfusion scan. EKG: Baseline EKG shows normal sinus rhythm at a ventricular rate of 62. There is questionable old septal infarct. No significant ST abnormalities. Exercise stress EKG: The patient exercised for 12 minutes and 43 seconds, achieving 16 mets and 93% of maximum predicted heart rate. Blood pressure yuri to 188/98. There were occasional PVCs, but no other complex arrhythmias. No significant dynamic EKG changes, ST segment changes with exercise. TECHNIQUE: For the stress portion of the study, 32.0 mCi of technetium-99m Cardiolite IV was injected at 09:30 a.m. on 11/23/2016. Fifteen minutes following the injection, imaging of the heart was performed in multiple projections. For the rest portion of the study, 10.5 mCi of technetium-99m Cardiolite was injected at 07:30 a.m. One hour following injection, imaging of the left heart was performed in the same projections. FINDINGS: Raw images were reviewed in detail. There was mild vertical motion notable on the stress images. There was evidence of diaphragmatic attenuation on both stress and rest images. Minimal gut uptake impacting the inferior imaging border of the heart. There was no pathologic extracardiac uptake. Short axis, vertical long axis, and horizontal long axis images were reviewed in detail. There was no evidence of TID. There were no significant perfusion defects noted with stress or with rest. There was mild inferolateral thinning on both stress and rest, most likely consistent with diaphragmatic attenuation. LV size was normal with an end-diastolic volume of 112 mL. LV systolic function was normal with an EF of 68%. There were no regional wall motion abnormalities. IMPRESSION: 1. Normal myocardial perfusion scan with no evidence of ischemia or infarct. 2. Negative exercise stress EKG at 93% maximum predicted heart rate. Exercised for 12 minutes and 43 seconds, achieving 16 mets. 3. Normal LV size and function. EF 68%. No regional wall motion abnormalities. No exercise-induced chest pain. Normal hemodynamic response to exercise. 4. Overall, this represents a low risk study for adverse cardiac events. MTDD
== END | disposition home or self-care (01) ==
LOC: C.NUCL 06:58
PROVIDERS: ATTEND Internal Medicine Interventional Cardiology
DX: R79.89 Other specified abnormal findings of blood chemistry (principal); R74.8 Abnormal levels of other serum enzymes; I48.91 Unspecified atrial fibrillation

== ENCOUNTER 2017-11-05 13:22 | Emergency (ER) | payer BC, OTHER ==
[~2017-11-05] VITALS: Ht 190.5 cm; Wt 123.0 kg
[2017-11-05 13:30] VITALS: TEMP 37.1; Ht 190.5 cm; Wt 123.0 kg
[2017-11-05] MEDS ORDERED: NITROGLYCERIN 2% OINTMENT 30GM TUBE EXT STA (13:43)
[2017-11-05] MEDS ORDERED: MoRPHine SULFATE 4 MG/ML 1 ML CARP\\VIAL IV STA (13:43)
[2017-11-05 13:52] VITALS: O2SAT 94
[2017-11-05 14:03] LABS: BASO % 0.2 %; BASO ABS # 0.02 K/uL (0-0.2); EOS % 2.7 %; EOS ABS # 0.23 K/uL (0-0.5); HEMATOCRIT 41.7 % (42-52); HEMOGLOBIN 14.9 g/dL (14.0-18.0); IG# 0.01 K/uL (0.00-0.02); LYMPH % 33.5 %; LYMPH ABS # 2.81 K/uL (1.2-3.4); MEAN CELL VOLUME 89.7 fL (80-100); MEAN CORPUSCULAR HGB CONC 35.7 g/dl (32-36); MEAN PLATELET VOLUME 10.1 fL (7.4-10.4); MONO % 7.5 %; MONO ABS # 0.63 K/uL (0.11-0.59); PLATELET COUNT 204 K/uL (130-400); RED CELL DISTRIBUTION WIDTH CV 12.4 % (11.5-14.5); RED CELL DISTRIBUTION WIDTH SD 39.8 fL (36.4-46.3)
[2017-11-05] MEDS ORDERED: LISI-791 PO (14:03)
[2017-11-05] MEDS ORDERED: ASPI325T45 PO (14:03)
[2017-11-05] MEDS ORDERED: METO50TA8 PO (14:03)
[2017-11-05 14:12] LABS: PTT PATIENT 26.8 SECONDS (21.0-31.0)
--- NOTE | 2017-11-05 14:19 | DIAGNOSTIC IMAGING REPORT ---
CHEST ONE VIEW PORTABLE CLINICAL HISTORY: Chest pain. COMPARISON STUDY: Chest radiograph October 31, 2016. FINDINGS: Incidental note is made of multiple old right-sided rib fractures. There is mild cardiomegaly without evidence of pulmonary edema. There is no consolidation. No pneumothorax or pleural effusion is noted. IMPRESSION: 1. No acute cardiopulmonary findings. 2. Mild cardiomegaly. Electronically signed by: Anthony Silver M.D. 11/05/2017 2:18 PM Dictated Date/Time: 11/05/2017 2:18 PM
[2017-11-05 14:22] LABS: ALBUMIN 3.4 gm/dl (3.4-5.0); ALT/SGPT 44 U/L (12-78); AST/SGOT 25 U/L (15-37); BLOOD UREA NITROGEN 18 mg/dl (7-18); CALCIUM 8.3 mg/dl (8.5-10.1); CARBON DIOXIDE 25 mmol/L (21-32); CREATININE 1.08 mg/dl (0.60-1.40); GLUCOSE 106 mg/dl (70-99); SODIUM 138 mmol/L (136-145)
[2017-11-05 14:35] LABS: ALKALINE PHOSPHATASE 84 U/L (45-117); CKMB 1.5 ng/ml (0.5-3.6); TOTAL PROTEIN 6.8 gm/dl (6.4-8.2)
--- NOTE | 2017-11-05 16:37 | EMERGENCY ROOM VISIT NOTE ---
History First contact with patient: 13:37 Chief Complaint: CHEST PAIN Stated Complaint: CHEST PAIN Nursing Triage Summary: CHEST PAIN STARTED AT 1030 LEFT BREAST AREA History of Present Illness The patient is a 62 year old male who presents to the Emergency Room via private vehicle accompanied by female with complaints of "chest pain started at 10:30, left breast area". The patient states that he was shoveling snow earlier this morning, and was doing well. He states that he was out of the house several hours later and developed pain in the left anterior chest that is worse with movement of the left arm, or movement as well as palpation to the left anterior chest. He states that the pain as an 8/10. There is no shortness of breath. There is no heart history. He denies any significant medical problems other than atrial fibrillation 1 last year. Review of Systems A complete 10-point Review of Systems was discussed with the patient, with pertinent positives and negatives listed in the History of Present Illness. All remaining Review of Systems questions can be considered negative unless otherwise specified. Past Medical/Surgical History Medical Problems: (1) HTN (hypertension) (2) Obesity (BMI 30.0-34.9) Family History Blood pressure, lung disease. Social History Smoking Status: Never Smoker Alcohol Use: occasionally Drug Use: none Marital Status: Housing Status: lives with family Occupation Status: unemployed Current/Historical Medications Scheduled Aspirin (Aspirin), 325 MG PO DAILY Lisinopril (Zestril), 10 MG PO DAILY Metoprolol Succ (Toprol Xl) (Toprol-Xl), 50 MG PO DAILY Physical Exam Vital Signs Date Time Temp Pulse Resp B/P (MAP) Pulse Ox O2 Delivery O2 Flow Rate FiO2 11/05/17 16:48 61 16 113/74 94 11/05/17 14:44 65 16 107/64 93 Room Air 11/05/17 14:09 94 Room Air 11/05/17 14:00 67 18 122/94 94 Room Air 11/05/17 13:52 94 Room Air 11/05/17 13:46 70 11/05/17 13:30 37.1 73 20 131/87 95 Room Air Physical Exam VITAL SIGNS - Vital signs and nursing notes were reviewed. Stable. GENERAL -62-year-old male appearing his stated age who is in no acute distress. Communicates well with provider and answers questions appropriately. SKIN - Without rashes. No petechial rashes. HEAD - NC/AT. EYES - Sclera anicteric. Palpebral conjunctiva pink and moist with no injection noted. EARS - No deformities of external structures noted on gross examination bilaterally. NOSE - Midline and without cyanosis. MOUTH/OROPHARYNX - Without perioral cyanosis. NECK - Neck with FROM. LUNGS - Chest wall symmetric without accessory muscle use, intercostals retractions, or central cyanosis. Normal vesicular breath sounds CTA B/L. No wheezes, rales, or rhonchi appreciated. CARDIAC - RRR with S1/S2. No murmur, rubs, or gallops appreciated. There is tenderness to palpation overlying the patient's left anterior chest in the intercostal spaces. ABDOMEN - Abdominal contour normal without pulsations or visible masses. BS normoactive all four quadrants. No tenderness, palpable masses, hepatosplenomegaly, or ascites noted. Medical Decision & Procedures ER Provider Diagnostic Interpretation: CHEST ONE VIEW PORTABLE CLINICAL HISTORY: Chest pain. COMPARISON STUDY: Chest radiograph October 31, 2016. FINDINGS: Incidental note is made of multiple old right-sided rib fractures. There is mild cardiomegaly without evidence of pulmonary edema. There is no consolidation. No pneumothorax or pleural effusion is noted. IMPRESSION: 1. No acute cardiopulmonary findings. 2. Mild cardiomegaly. Electronically signed by: Anthony Silver M.D. 11/05/2017 2:18 PM Dictated Date/Time: 11/05/2017 2:18 PM Laboratory Results 11/05/17 13:45 Red Blood Count 4.65, Mean Corpuscular Volume 89.7, Mean Corpuscular Hemoglobin 32.0, Mean Corpuscular Hemoglobin Concent 35.7, Mean Platelet Volume 10.1, Neutrophils (%) (Auto) 56.0, Lymphocytes (%) (Auto) 33.5, Monocytes (%) (Auto) 7.5, Eosinophils (%) (Auto) 2.7, Basophils (%) (Auto) 0.2, Neutrophils # (Auto) 4.70, Lymphocytes # (Auto) 2.81, Monocytes # (Auto) 0.63, Eosinophils # (Auto) 0.23, Basophils # (Auto) 0.02 11/05/17 13:45 Test 11/05/17 13:45 11/05/17 15:30 2/18/18 15:37 White Blood Count 8.40 K/uL (4.8-10.8) Red Blood Count 4.65 M/uL (4.7-6.1) Hemoglobin 14.9 g/dL (14.0-18.0) Hematocrit 41.7 % (42-52) Mean Corpuscular Volume 89.7 fL (80-100) Mean Corpuscular Hemoglobin 32.0 pg (25-34) Mean Corpuscular Hemoglobin Concent 35.7 g/dl (32-36) Platelet Count 204 K/uL (130-400) Mean Platelet Volume 10.1 fL (7.4-10.4) Neutrophils (%) (Auto) 56.0 % Lymphocytes (%) (Auto) 33.5 % Monocytes (%) (Auto) 7.5 % Eosinophils (%) (Auto) 2.7 % Basophils (%) (Auto) 0.2 % Neutrophils # (Auto) 4.70 K/uL (1.4-6.5) Lymphocytes # (Auto) 2.81 K/uL (1.2-3.4) Monocytes # (Auto) 0.63 K/uL (0.11-0.59) Eosinophils # (Auto) 0.23 K/uL (0-0.5) Basophils # (Auto) 0.02 K/uL (0-0.2) RDW Standard Deviation 39.8 fL (36.4-46.3) RDW Coefficient of Variation 12.4 % (11.5-14.5) Immature Granulocyte % (Auto) 0.1 % Immature Granulocyte # (Auto) 0.01 K/uL (0.00-0.02) Prothrombin Time 10.0 SECONDS (9.0-12.0) Prothromb Time International Ratio 1.0 (0.9-1.1) Activated Partial Thromboplast Time 26.8 SECONDS (21.0-31.0) Partial Thromboplastin Ratio 1.0 Anion Gap 8.0 mmol/L (3-11) Est Creatinine Clear Calc Drug Dose 102.8 ml/min Estimated GFR () 86.0 Estimated GFR (Non- 74.2 BUN/Creatinine Ratio 16.6 (10-20) Calcium Level 8.3 mg/dl (8.5-10.1) Magnesium Level 2.2 mg/dl (1.8-2.4) Total Bilirubin 0.3 mg/dl (0.2-1) Aspartate Amino Transf (AST/SGOT) 25 U/L (15-37) Alanine Aminotransferase (ALT/SGPT) 44 U/L (12-78) Alkaline Phosphatase 84 U/L (45-117) Total Creatine Kinase 63 U/L (39-308) Creatine Kinase MB 1.5 ng/ml (0.5-3.6) Creatine Kinase MB Ratio 2.4 (0-3.0) Total Protein 6.8 gm/dl (6.4-8.2) Albumin 3.4 gm/dl (3.4-5.0) Globulin 3.4 gm/dl (2.5-4.0) Albumin/Globulin Ratio 1.0 (0.9-2) Thyroid Stimulating Hormone (TSH) 1.040 uIu/ml (0.300-4.500) Urine Color YELLOW Urine Appearance CLEAR (CLEAR) Urine pH 8.0 (4.5-7.5) Urine Specific [place] 1.005 (1.000-1.030) Urine Protein NEG (NEG) Urine Glucose (UA) NEG (NEG) Urine Ketones NEG (NEG) Urine Occult Blood NEG (NEG) Urine Nitrite NEG (NEG) Urine Bilirubin NEG (NEG) Urine Urobilinogen NEG (NEG) Urine Leukocyte Esterase NEG (NEG) Troponin I < 0.015 ng/ml (0-0.045) Medications Administered Medications (Trade) Dose Ordered Sig/Edison Route Start Time Stop Time Status Last Admin Dose Admin Morphine Sulfate (MoRPHine SULFATE INJ) 4 mg NOW STAT IV 11/05/17 13:43 11/05/17 13:45 DC 11/05/17 13:59 4 MG Nitroglycerin (Nitroglycerin 2% Oint) 0.5 inch NOW STAT EXT 11/05/17 13:43 11/05/17 13:45 DC 11/05/17 13:43 0.5 INCH Medical Decision Patient was seen and evaluated as above. He presents to us today with left anterior chest pain. It is important to note that the chest pain was not well exertion, rather was several hours later while at rest. It is reproducible upon palpation. I do not suspect NC. I suspect this is likely a pulled muscle from shoveling snow. Bedside EKG per my interpretation reveals normal sinus rhythm. There is no ectopy or ischemic change. Chest x-ray reveals mild cardiomegaly, otherwise negative. CBC reveals no concerning leukocytosis or anemia. Coags normal. Patient metabolic panel reveals no evidence of kidney or liver failure. Calcium low at 8.3. Troponin negative 2. During his stay he was given morphine and nitroglycerin. The pain was alleviated however I suspect this is likely secondary to the morphine, and a nitroglycerin. Again, the pain is reproducible on exam with palpation of the anterior chest. It appears to be intercostal in nature. There is no shortness of breath. The negative troponin 2, an EKG as well as his current presentation ACS is deemed less likely. He was offered inpatient management and declined. He is to follow with the family doctor for further evaluation and management. He is to return with worsening symptoms of which she was certainly educated upon. He was educated upon management, educated upon worrisome symptoms which to return, had questions answered prior to discharge, and was discharged home in good condition. Case was discussed with the attending physician. In evaluation and treatment of this patient the following differential diagnoses were entertained: NC, PE, costochondritis, pericarditis, muscle strain , among others. Impression Primary Impression: Chest wall pain Departure Information Dispostion Home / Self-Care Condition GOOD Referrals Adryan Stallworth M.D. (PCP) Patient Instructions My [facility] Additional Instructions You have been treated in the Emergency Department your chest Pain. As we discussed I believe this is a pulled muscle in your left anterior chest given that it is reproducible by pressing on it. For pain control, you can use the following [id number] medicines (if >12 yo): - Regular strength (325mg/tab) Tylenol (acetaminophen) 2 tabs every 4-6 hours as needed. Do not exceed 12 tablets in a 24 hour period. Avoid taking more than 3 grams (3000 mg) of Tylenol per day. This includes any other sources of acetaminophen you may take on a regular basis. - Regular strength (200 mg/tab) Advil (ibuprofen) 1-2 tabs every 4-6 hours as needed. Do not exceed a dose of 3200 mg per day. Drink plenty of water and stay well hydrated. As with any trip to the Emergency Department, you should follow-up with your Primary Care Provider from today's visit. Please call them first thing tomorrow morning to schedule follow-up. Return to the emergency department if your symptoms persist despite treatment plan outlined above or if the following symptoms occur: Chest pain with exertion , vomiting, any new/concerning symptoms.
[2017-11-05 16:48] VITALS: BP 113/74; PULSE 61; O2SAT 94
== END 2017-11-05 16:49 | disposition home or self-care (01) ==
LOC: C.EDB 13:24
DX: R07.89 Other chest pain (principal); I10 Essential (primary) hypertension; Z79.899 Other long term (current) drug therapy

== ENCOUNTER 2022-09-24 07:29 | Observation (INO) ==
[2022-09-24] MEDS ORDERED: dilTIAZem HCl 5 MG/ML 5 ML VIAL IV STA (07:50)
[2022-09-24] MEDS ORDERED: SODIUM CHLORIDE 0.9% 500 ML IV STA (07:50)
--- NOTE | 2022-09-24 07:57 | Emergency Department Note ---
Impression & Plan Atrial fibrillation with RVR ED Provider Note INFORMANT: Patient ED PROVIDER(S): Sudeep Edwards DO CHIEF COMPLAINT: Palpitations PLAN: Disposition: Admission Condition: Stable Outpatient prescription management: none Referral: I spoke with the hospitalist, Dr. Nye, who will see the patient for admission/observation and further evaluation and consultation. MEDICAL DECISION MAKING: This is a 67-year-old male who presents to the ED with a chief complaint of pal pitations. The patient states that he has a history of A. fib about 6 years ago. Review of the cardiology note suggested that this occurred in 2017. He spontaneously converted in the ED before any treatment was provided. He sees Dr. Lepe. The patient is not on anticoagulation. He was seen here yesterday and had a positive COVID test. He has had some diarrhea for the past several days as well as rhinorrhea. The patient started having the symptoms at 6 AM today. He felt like his heart was racing and he was having palpitations. His exam reveals normal vital signs with exception of a heart rate in the 180s. Heart rate is irregular consistent with A. fib with RVR. He is chronically on metoprolol. He states that he typically takes it at night and took his 50 mg of metoprolol XL last night. The patient was initially treated with Lopressor 15 mg IV. This did slow the heart rate down to about 140 from 180. IV fluid bolus of 1 L total was administered. The patient's blood pressure seem to be labile with blood pressures as low as 87 systolic. At this point the decision was made to convert the patient via electrical cardioversion. After etomidate was used for sedation, he was ultimately cardioverted with 360 J into a sinus rhythm. 2 attempts failed at 100 and 200 J respectively. He was given IV heparin drip and bolus. The patient's troponin is elevated. This is likely related to demand ischemia from his heart rate being elevated. Coronary artery disease cannot be ruled out. Given the overall course in the ED, I feel that further hospital inpatient evaluation would be beneficial. I spoke with the hospitalist about the patient. The patient's blood pressure was still little marginal after cardioversion and he was given a second liter of normal saline IV. I did speak with Dr. Nye who will see the patient in the ED. Triage Nursing notes reviewed. Vital Signs: reviewed Prior /Outside records reviewed: Cardiology notes from 2017 Differential diagnosis: The differential that was considered includes acute myocardial infarction, acute coronary syndrome, myocarditis, pericarditis, pulmonary embolism, pneumonia, A. fib with RVR, ventricular fibrillation, PACs, PVCs, other arrhythmia. Diagnostics, as interpreted by me: 12 lead ECG: Atrial fibrillation with RVR with a heart rate of 170. No acute ischemic changes. No ST elevation. No PVCs. Cardiac Monitoring: Rapid A. fib initially with some PVCs rates of 1 60-1 80. Medical decision rules: [id number] Score: 2 points anticoagulation recommended Imaging studies: Chest x-ray: No acute disease. No pneumothorax or pneumonia. Procedures: 1. Electrical cardioversion. 2. Procedural sedation Critical care: I have personally spent 45 minutes of critical care time in the direct management of this patient. This includes bedside care, interpretation of diagnostic studies, and testing, discussion with consultants, patient, and family members, and other required patient management activities. This 45 minutes is in excess of all separately billable procedures. HPI: This is a 67-year-old male who presents to the ED with a chief complaint of palpitations. The patient states that he has a history of A. fib about [address] He [address] Lepe. The patient is not on anticoagulation. He was seen here yesterday and had a positive COVID test. He has had some diarrhea for the past several days as well as rhinorrhea. The patient started having the symptoms at 6 AM today. He felt like his heart was racing and he was having palpitations. His exam reveals normal vital signs with exception of a heart rate in the 180s. Heart rate is irregular consistent with A. fib with RVR. He is chronically on metoprolol. He states that he typically takes it at night and took his 50 mg of metoprolol XL last night. PAST MEDICAL HISTORY: See Below. Previous history of A. fib 6 years ago. None since. History of hypertension. PAST SURGICAL HISTORY: See Below SOCIAL HISTORY: See Below HOME MEDICATIONS: See Below ALLERGIES: See Below VITALS: See Below PHYSICAL EXAMINATION: CONSTITUTIONAL/VITAL SIGNS: Reviewed GENERAL: Non-toxic in appearance. INTEGUMENTARY: Warm, dry, and Vincent. HEAD: Normocephalic. EYES: without scleral icterus. ENT/OROPHARYNX: clear and moist. RESPIRATORY: No increased work of breathing. Lungs clear. CARDIOVASCULAR: Rapid rate. Irregular rhythm. GI/ABDOMEN: Soft and nontender. . EXTREMITIES: Normal NEUROLOGICAL: Intact without focal deficits. PSYCHIATRIC: Normal affect. MUSCULOSKELETAL: Normal. TRIAGE NURSING DOCUMENTATION REVIEWED. Past Med/Surg History Medical History HTN (hypertension) Social History Smoking Status: Never smoker Hx Substance Use: No Preferred Language: Danish Feels Safe at Home: Yes Allergies Allergies Allergy/AdvReac Type Severity Reaction Status Date / Time No Known Allergies Allergy + Unverified 01/25/20 08:23 Home Meds Home Medications Medication Instructions Recorded Confirmed lisinopril 10 mg tablet (Zestril) 10 mg PO QAM #0 tabs 11/05/17 01/25/20 metoprolol succinate 50 mg 50 mg PO QAM #30 tabs 11/05/17 01/25/20 tablet,extended release 24 hr (Toprol XL) Results & Data (ED) Vital Signs Vital Signs - 24 hr 09/24/22 07:33 09/24/22 08:03 09/24/22 07:55 Temperature 36.5 C Temperature Source Temporal Artery Scan Pulse Rate 83 170 H 175 H Pulse Rate [Apical] Pulse Rate from SpO2 Sensor 97 H Respiratory Rate 18 21 Respiratory Effort / Characteristics Non-Labored Spontaneous Respiratory Depth Normal Blood Pressure 110/72 101/78 Blood Pressure [Left Arm] Blood Pressure Mean 84 Blood Pressure Mean [Left Arm] Pulse Oximetry 96 94 Oxygen Delivery Method Room Air Sepsis Recent Fever Within 48 Hours No Sepsis New/Unexplained Change in Mental Status No Sepsis Action Taken by Nursing No Action Required 09/24/22 08:00 09/24/22 08:00 09/24/22 08:04 Temperature Temperature Source Pulse Rate 173 H 172 H Pulse Rate [Apical] Pulse Rate from SpO2 Sensor 90 Respiratory Rate 21 21 Respiratory Effort / Characteristics Respiratory Depth Blood Pressure 97/79 L Blood Pressure [Left Arm] Blood Pressure Mean 85 Blood Pressure Mean [Left Arm] Pulse Oximetry 95 95 Oxygen Delivery Method Sepsis Recent Fever Within 48 Hours Sepsis New/Unexplained Change in Mental Status Sepsis Action Taken by Nursing 09/24/22 08:04 09/24/22 08:06 09/24/22 08:06 Temperature Temperature Source Pulse Rate 175 H Pulse Rate [Apical] Pulse Rate from SpO2 Sensor 89 Respiratory Rate 3 L Respiratory Effort / Characteristics Respiratory Depth Blood Pressure 113/84 99/77 L Blood Pressure [Left Arm] Blood Pressure Mean 93 84 Blood Pressure Mean [Left Arm] Pulse Oximetry 94 Oxygen Delivery Method Sepsis Recent Fever Within 48 Hours Sepsis New/Unexplained Change in Mental Status Sepsis Action Taken by Nursing 09/24/22 08:13 09/24/22 08:00 09/24/22 08:10 Temperature Temperature Source Pulse Rate 151 H Pulse Rate [Apical] 159 H Pulse Rate from SpO2 Sensor 85 Respiratory Rate 18 13 Respiratory Effort / Characteristics Respiratory Depth Blood Pressure Blood Pressure [Left Arm] 100/67 Blood Pressure Mean Blood Pressure Mean [Left Arm] 78 Pulse Oximetry 94 92 Oxygen Delivery Method Room Air Room Air Sepsis Recent Fever Within 48 Hours Sepsis New/Unexplained Change in Mental Status Sepsis Action Taken by Nursing 09/24/22 08:11 09/24/22 08:11 09/24/22 08:13 Temperature Temperature Source Pulse Rate 145 H 149 H Pulse Rate [Apical] Pulse Rate from SpO2 Sensor 77 82 Respiratory Rate 7 L 11 L Respiratory Effort / Characteristics Respiratory Depth Blood Pressure 95/70 L Blood Pressure [Left Arm] Blood Pressure Mean 78 Blood Pressure Mean [Left Arm] Pulse Oximetry 91 93 Oxygen Delivery Method Sepsis Recent Fever Within 48 Hours Sepsis New/Unexplained Change in Mental Status Sepsis Action Taken by Nursing 09/24/22 08:13 09/24/22 08:15 09/24/22 08:15 Temperature Temperature Source Pulse Rate 164 H Pulse Rate [Apical] Pulse Rate from SpO2 Sensor 96 H Respiratory Rate 4 L Respiratory Effort / Characteristics Respiratory Depth Blood Pressure 89/67 L 91/76 L Blood Pressure [Left Arm] Blood Pressure Mean 74 81 Blood Pressure Mean [Left Arm] Pulse Oximetry 93 Oxygen Delivery Method Sepsis Recent Fever Within 48 Hours Sepsis New/Unexplained Change in Mental Status Sepsis Action Taken by Nursing 09/24/22 08:20 09/24/22 08:20 Temperature Temperature Source Pulse Rate 147 H Pulse Rate [Apical] Pulse Rate from SpO2 Sensor 100 H Respiratory Rate 10 L Respiratory Effort / Characteristics Respiratory Depth Blood Pressure 122/88 Blood Pressure [Left Arm] Blood Pressure Mean 99 Blood Pressure Mean [Left Arm] Pulse Oximetry 94 Oxygen Delivery Method Sepsis Recent Fever Within 48 Hours Sepsis New/Unexplained Change in Mental Status Sepsis Action Taken by Nursing Laboratory Data 09/24/22 Unknown 09/24/22 Unknown Lab Results 09/24/22 09/24/22 09/24/22 Range/Units Unknown Unknown Unknown WBC 6.00 (4.8-10.8) K/ul RBC 5.88 (4.63-6.08) M/uL Hgb 18.7 H (14.0-18.0) g/dl Hct 51.2 H (40.1-51.0) % MCV 87.1 (80.0-100.0) fL MCH 31.8 (25.0-34.0) pg MCHC 36.5 H (32.0-36.0) g/dL RDW Std Deviation 38.4 (36.4-46.3) fL RDW Coeff of Shaquille 11.9 (11.5-14.5) % Plt Count 179 (130-400) K/uL MPV 10.3 (9.4-12.4) fL Immature Gran % (Auto) 0.3 % Neut % (Auto) 54.0 % Lymph % (Auto) 26.2 % [place] % (Auto) 17.0 % Eos % (Auto) 2.0 % Baso % (Auto) 0.5 % Neut # (Auto) 3.24 (1.4-6.5) K/uL Lymph # (Auto) 1.57 (1.2-3.4) K/uL [place] # (Auto) 1.02 H (0.24-0.82) K/uL Eos # (Auto) 0.12 (0-0.50) K/uL Baso # (Auto) 0.03 (0-0.2) K/uL Immature Gran # (Auto) 0.02 (0.00-0.02) K/uL PT 11.5 (9.0-12.0) Seconds INR 1.1 (0.9-1.1) APTT 33.4 H (21.0-31.0) Seconds PTT Ratio 1.2 Sodium 132 L (136-145) mmol/L Potassium 3.3 L (3.5-5.1) mmol/L Chloride 99 (98-107) mmol/L Carbon Dioxide 21 (21-32) mmol/L Anion Gap 12 H (3-11) BUN 18 (6-23) mg/dl Creatinine 1.12 (0.6-1.4) mg/dl Est Cr Clr Drug Dosing 87.3 ml/min Est GFR ( Amer) 79.5 ml/min Est GFR (Non-Af Amer) 68.6 ml/min BUN/Creatinine Ratio 16.1 (10-20) Glucose 126 H (70-99(Fasting)) mg/dl Calcium 8.9 (8.5-10.1) mg/dl Magnesium 1.8 (1.7-2.4) mg/dl Total Bilirubin 0.5 (0.2-1.0) mg/dl AST 26 (13-39) U/L ALT 29 (7-52) U/L Alkaline Phosphatase 74 (34-104) U/L Troponin I High Sens 117.4 H* (0-20) pg/ml Total Protein 7.3 (6.0-8.3) gm/dl Albumin 4.2 (3.4-5.0) gm/dl Globulin 3.1 (2.5-4.0) gm/dl Albumin/Globulin Ratio 1.4 (0.9-2) TSH (0.300-4.500) uIu/ml 09/24/22 Range/Units Unknown WBC (4.8-10.8) K/ul RBC (4.63-6.08) M/uL Hgb (14.0-18.0) g/dl Hct (40.1-51.0) % MCV (80.0-100.0) fL MCH (25.0-34.0) pg MCHC (32.0-36.0) g/dL RDW Std Deviation (36.4-46.3) fL RDW Coeff of Shaquille (11.5-14.5) % Plt Count (130-400) K/uL MPV (9.4-12.4) fL Immature Gran % (Auto) % Neut % (Auto) % Lymph % (Auto) % [place] % (Auto) % Eos % (Auto) % Baso % (Auto) % Neut # (Auto) (1.4-6.5) K/uL Lymph # (Auto) (1.2-3.4) K/uL [place] # (Auto) (0.24-0.82) K/uL Eos # (Auto) (0-0.50) K/uL Baso # (Auto) (0-0.2) K/uL Immature Gran # (Auto) (0.00-0.02) K/uL PT (9.0-12.0) Seconds INR (0.9-1.1) APTT (21.0-31.0) Seconds PTT Ratio Sodium (136-145) mmol/L Potassium (3.5-5.1) mmol/L Chloride (98-107) mmol/L Carbon Dioxide (21-32) mmol/L Anion Gap (3-11) BUN (6-23) mg/dl Creatinine (0.6-1.4) mg/dl Est Cr Clr Drug Dosing ml/min Est GFR ( Amer) ml/min Est GFR (Non-Af Amer) ml/min BUN/Creatinine Ratio (10-20) Glucose (70-99(Fasting)) mg/dl Calcium (8.5-10.1) mg/dl Magnesium (1.7-2.4) mg/dl Total Bilirubin (0.2-1.0) mg/dl AST (13-39) U/L ALT (7-52) U/L Alkaline Phosphatase (34-104) U/L Troponin I High Sens (0-20) pg/ml Total Protein (6.0-8.3) gm/dl Albumin (3.4-5.0) gm/dl Globulin (2.5-4.0) gm/dl Albumin/Globulin Ratio (0.9-2) TSH 2.091 (0.300-4.500) uIu/ml Administered Medications Metoprolol Tartrate (Metoprolol Tartrate 1 Mg/Ml Vial) 5 mg IV Q5M PRN PRN Reason: Tachycardia Stop: 10/24/22 08:09 Last Admin: 09/24/22 08:22 Dose: 5 mg Documented By: Admin: 09/24/22 08:14 Dose: 5 mg Documented By: OL Discontinued Medications Aspirin (Aspirin Chew 324 Mg) 324 mg PO NOW STA Stop: 09/24/22 08:48 Last Admin: 09/24/22 09:02 Dose: 324 mg Documented By: AP Diltiazem HCl (Diltiazem Hcl 5 Mg/Ml 5 Ml Vial) 25 mg IV NOW STA Stop: 09/24/22 07:51 Last Admin: 09/24/22 08:16 Dose: Not Given Documented By: FRANKLIN Heparin Sodium (Porcine) (Heparin Sod (Porcine) 1000 Unit/Ml) 5,000 units IV NOW ONE Stop: 09/24/22 08:48 Last Admin: 09/24/22 09:02 Dose: 5,000 units Documented By: FELIPE Co-signed By: EULOGIO Sodium Chloride (Nss) 500 mls @ 999 mls/hr IV .Q31M STA Stop: 09/24/22 08:20 Last Infusion: 09/24/22 08:49 Dose: 0 mls/hr Documented By: Admin: 09/24/22 08:04 Dose: 999 mls/hr Documented By: FRANKLIN Sodium Chloride (Nss) 500 mls @ 999 mls/hr IV .Q31M ONE Stop: 09/24/22 09:11 Last Admin: 09/24/22 08:49 Dose: 999 mls/hr Documented By: FELIPE Metoprolol Tartrate (Metoprolol Tartrate 1 Mg/Ml Vial) 5 mg IV NOW STA Stop: 09/24/22 08:02 Last Admin: 09/24/22 08:03 Dose: 5 mg Documented By: FELIPE Metoprolol Tartrate (Metoprolol Tartrate 1 Mg/Ml Vial) Confirm Administered Dose 5 mg IV .STK-MED ONE Stop: 09/24/22 08:03 Last Admin: 09/24/22 08:20 Dose: Not Given Documented By: FRANKLIN Imaging Data Radiologist's Impression: Chest X-Ray 09/24/22 07:52 XR chest 1V portable HISTORY: Dysrhythmia COMPARISON: Chest 11/05/2017. FINDINGS: No pneumothorax. No pleural effusions. The cardiac silhouette is top normal in size. A few small bibasilar linear densities favor subsegmental atelectasis are scarring. Otherwise, the lungs are clear. No evidence for pulmonary edema. There are old, healed bilateral rib fractures again noted. IMPRESSION: No significant change compared to the prior study. No acute process. ACT 112: Negative or not required by law. Electronically signed by: Jason Watson M.D. 09/24/2022 8:09 AM Discharge Plan Visit Data Chief Complaint: Arrhythmia/Palpitations Stated Complaint: AFIB ED Provider: Sudeep Edwards Discharge Problem: Atrial fibrillation with RVR Forms Stand Alone Forms: My [facility] Prescriptions Prescriptions: No Action metoprolol succinate [Toprol XL] 50 mg Tablet Extended Release 24 Hr 50 mg PO QAM Qty: 30 lisinopril [Zestril] 10 mg Tablet 10 mg PO QAM Qty: 0 Referrals Referrals: Adryan Stallworth MD [Primary Care Provider] - Procedures Free Text Procedures Electrical cardioversion: Reason for A. fib with RVR and hypotension. The pa tient was sedated with etomidate. Synchronized electrical cardioversion at initially 100 J, then 200 J and then 360 J. The heart rate slowed down with the 102 100 J cardioversions, however he went back into rapid A. fib. After 360 J cardioversion, patient's heart rate converted into a sinus rhythm at a rate in the 70s. Lead EKG performed. Procedural Sedation Indication: other (Electrical cardioversion) ASA Class: II Time of Last PO Intake: 06:00 Preparation: engine monitor applied, pulse oximeter, capnometry used, supplemental O2 applied, suction/airway equipment at bedside and IV secured IV Etomidate dose (mg): 10 Patient Tolerated Procedure: well and no complications Complications: none Additional Comments: Neurologically intact after the procedure.
[2022-09-24] MEDS ORDERED: METOPROLOL TARTRATE 1 MG/ML VIAL IV STA (08:01)
[2022-09-24] MEDS ORDERED: METOPROLOL TARTRATE 1 MG/ML VIAL IV ONE (08:02)
[2022-09-24 08:06] LABS: Basophils # (auto) 0.03 K/uL (0-0.2); Basophils % (auto) 0.5 %; Eosinophils # (auto) 0.12 K/uL (0-0.50); Hematocrit (blood only) 51.2 % (40.1-51.0); Hemoglobin 18.7 g/dl (14.0-18.0); Immature Granulocytes # (auto) 0.02 K/uL (0.00-0.02); Immature Granulocytes % (auto) 0.3 %; Lymphocytes # (auto) 1.57 K/uL (1.2-3.4); Lymphocytes % (auto) 26.2 %; Mean Corpuscular Hemoglobin 31.8 pg (25.0-34.0); Mean Corpuscular Hgb Conc 36.5 g/dL (32.0-36.0); Mean Corpuscular Volume 87.1 fL (80.0-100.0); Mean Platelet Volume 10.3 fL (9.4-12.4); Monocytes # (auto) 1.02 K/uL (0.24-0.82); Neutrophils # (auto) 3.24 K/uL (1.4-6.5); Platelet Count 179 K/uL (130-400); RDW Coefficient of Variation 11.9 % (11.5-14.5); RDW Standard Deviation 38.4 fL (36.4-46.3); Red Blood Count 5.88 M/uL (4.63-6.08)
--- NOTE | 2022-09-24 08:10 | XRay Report ---
XR chest 1V portable HISTORY: Dysrhythmia COMPARISON: Chest 11/05/2017. FINDINGS: No pneumothorax. No pleural effusions. The cardiac silhouette is top normal in size. A few small bibasilar linear densities favor subsegmental atelectasis are scarring. Otherwise, the lungs ar e clear. No evidence for pulmonary edema. There are old, healed bilateral rib fractures again noted. IMPRESSION: No significant change compared to the prior study. No acute process. ACT 112: Negative or not required by law. Electronically signed by: Jason Watson M.D. 09/24/2022 8:09 AM
[2022-09-24] MEDS: METOPROLOL TARTRATE 1 MG/ML VIAL IV PRN ×2 (08:14→08:22)
[2022-09-24 08:19] LABS: INR 1.1 (0.9-1.1); Partial Thromboplastin Ratio 1.2; Partial Thromboplastin Time 33.4 Seconds (21.0-31.0); Prothrombin Time 11.5 Seconds (9.0-12.0)
[2022-09-24] MEDS ORDERED: SODIUM CHLORIDE 0.9% 500 ML IV ONE (08:41)
[2022-09-24 08:47] LABS: Troponin I High Sensitivity 117.4 pg/ml (0-20)
[2022-09-24] MEDS ORDERED: HEPARIN SOD (PORCINE) 1000 UNIT/ML IV ONE (08:47)
[2022-09-24] MEDS ORDERED: ASPIRIN CHEW 324 MG PO STA (08:47)
[2022-09-24 08:57] LABS: Albumin Globulin Ratio 1.4 (0.9-2); Albumin Level 4.2 gm/dl (3.4-5.0); BUN Creatinine Ratio 16.1 (10-20); Bilirubin,Total 0.5 mg/dl (0.2-1.0); Calcium 8.9 mg/dl (8.5-10.1); Creatinine Clr Calc Pharmacy 87.3 ml/min; Est GFR (African American) 79.5 ml/min; Est GFR (Non-African American) 68.6 ml/min; Globulin 3.1 gm/dl (2.5-4.0); Magnesium 1.8 mg/dl (1.7-2.4); Potassium 3.3 mmol/L (3.5-5.1); Total Protein 7.3 gm/dl (6.0-8.3)
[2022-09-24] MEDS ORDERED: ETOMIDATE 2 MG/ML 20 ML VIAL IV ONE ×2 (09:10→09:11)
[2022-09-24] MEDS ORDERED: RAPID SEQUENCE INDUCTION BAG ONE (09:10)
[2022-09-24] MEDS ORDERED: LORazepam 2 MG/1 ML VIAL ONE (09:24)
[2022-09-24] MEDS ORDERED: SODIUM CHLORIDE 0.9% 1000ML 1,000 ML IV ONE (09:43)
--- NOTE | 2022-09-24 10:27 | History & Physical Report ---
Date of Service September 24, 2022 Assessment & Plan (1) Atrial fibrillation with RVR: Plan: Afib RVR s/p Electrical Cardioversion Likely precipitated by hypokalemia and COVID Denies history of alcohol use, SELENE, tobacco use - Afib RBR 180s on arrival. Hypotensive after lopressor 5mg x3 without RVR control --> 3x sync cardioversion shocks with conversion following 3rd shock, etomidate for sedation. Subsequently in NSR, rate 60s Placed on heparin drip in ER - Pt with 1 episode afib 2016, converted after taking medication, patient is not sure what. Did not need electrical cardioversion and has taken metoprolol at home [id number] 2. Recommend anticoagulation, currently on heparin gtt. If doing well and troponin peak/downtrend --> convert to DOAC Continue metoprolol, 25 mg daily dose temporarily converted to 12.5 mg tartrate twice daily, uptitrate to 50 TDD if tolerated. Patient with borderline hypotension after conversion and 15 mg IV Lopressor. Hold for heart rate less than 60, BP less than 100. Echo pending Cardiology consulted. (2) COVID: Plan: COVID-19 - On approximately day 5 of symptoms Nonvaccinated No hypoxia, lungs are clear without wheezes/rales No steroids or remdesivir indicated at this time Is anticoagulated for A. fib above continue supportive care at this time, no additional treatment indicated. (3) HTN (hypertension): Plan: HTN -Lisinopril held for relative hypotension after IV metoprolol as above, resume tomorrow if normotensive - Continue Metoprolol as noted (4) Elevated troponin: Plan: Elevated troponin In the setting of A. fib RVR, suggestive of demand No history of FL/CHF Troponin series pending Echo pending -Patient had a feeling that he would not qualify his pain, but strong palpitations which resolved after cardioversion. At time of assessment is chest pain-free without shortness of breath (5) Hypokalemia: Plan: Hypokalemia - Mg 1.9, potassium 3.3 on admission - Goal Mg 2.0, K 4.0 Repletion ordered, trend Plan DVT PPx: On heparin Diet: N.p.o. pending to her troponin, if no recurrence of A. fib and troponin downtrends progressed to heart healthy diet Code Status: Full Disposition: Telemetry for monitoring following conversion History of Present Illness Primary Care Provider: Adryan Stallworth MD Sai Karimi is a 67-year-old male who presented to the emergency department with palpitations. Has a remote history of A. fib in 2017 which converted without electrical cardioversion and has been without known A. fib since. Patient was positive for COVID yesterday with diarrhea, sinus congestion, and fatigue. This morning his heart began racing with palpitations and patient presented to the emergency department for evaluation. On ER evaluation patient had an irregularly irregular rhythm consistent with A. fib and a heart rate in t he 180s consistent with RVR. Patient with hemodynamic instability in the ER with intermittent hypotension following attempts at IV Lopressor rate control, due to his hypotension with continued RVR and instability patient was emergently electrically cardioverted. Patient had 2 shocks without conversion, and converted after third shock. He was subsequently placed on IV heparin drip and bolus. He did not show evidence of stroke. Patient did have a elevated troponin in the setting of RVR. No leukocytosis Hemoglobin 18.7, clinically volume contracted Sodium 132 Potassium 3.3, optimize to 4.0 Creatinine is normal 1.12 on admission High-sensitivity troponin 117 in the setting of RVR, trended. COVID + 09/23/2022 Sick fevers/chills Monday (5 days ago). Morning of admit heart was racing 'knew as soon as I felt that it wasn't right' and came in. To be in A. fib RVR as noted above Patient seen emergency department yesterday for fevers and chills with some drug use for around 3-4 days, was found to have COVID without hypoxia and discharged home with supportive care. Patient was not and has not been hypoxic and is without shortness of breath. No sputum production. First time thinks he got a medicine for afib, but didn't need to be shocked out of it. Did not talk about blood clot risk at that time, this was around 2016. Does take metoprolol daily along with lisinopril for hypertension. Palpitation without chest pain at onset, patient felt like he had a strange fluttering and a difficulty described quality in the left chest which did not radiate to his neck or shoulder. Has since resolved. Patient not short of breath on assessment He reports that he has not had problems with chest pain either at rest or with exertion leading up to this. Has not had shortness of breath/diaphoresis leading up to this. No history of FL, other Of A. fib no heart abnormalities to his knowledge. Denies any alcohol use, no history of SELENE NO hx of CVA, DM, FL, thyroid problems, bleeding problems No FHX of DM, CVA, FL, thyroid problems, bleeding/clots CXR: No acute findings Initial EKG: Postconversion EKG: Normal sinus rhythm, QTC 420, no territorial ST segment changes or T wave inversions. Medical History: Reviewed Medications: Reviewed Surgical History: Reviewed Allergies: Reviewed Social History: No tobacco Code Status: Full Code Allergies Allergy/AdvReac Type Severity Reaction Status Date / Time No Known Allergies Allergy + Unverified 01/25/20 08:23 Home Medications Medication Instructions Recorded Confirmed Type lisinopril 10 mg tablet (Zestril) 10 mg PO QAM #0 tabs 11/05/17 09/24/22 History metoprolol succinate 25 mg 25 mg PO DAILY 09/24/22 09/24/22 History tablet,extended release 24 hr rosuvastatin 10 mg tablet 25 mg PO DAILY 09/24/22 09/24/22 History Past Med/Surg History Medical History (Updated 09/24/22 @ 11:21 by Todd Jordan MD) HTN (hypertension) Social History (Updated 09/24/22 @ 11:13 by Todd Jordan MD) Smoking Status: Never smoker Hx Alcohol Use: No Hx Substance Use: No Preferred Language: Bulgarian Feels Safe at Home: Yes Review of Systems Review of Systems: All systems reviewed & are unremarkable except as noted in HPI & below Physical Exam Physical Exam: General: A&Ox3. NAD. Cooperative. HEENT: Atraumatic, normocephalic. Vision/hearing intact Pulm: CTAB A&P. -wheezes, -rales, -rhonchi. Symmetrical chest rise. No increased work of breathing. No respiratory distress. Cardiac: RRR, -mrg. Radial pulses intact and symmetrical. Abdominal: Nontender, nondistended, soft. BS present. Ext: warm, dry no edema. 5/5 distal exremity strength in upper and lower bilat. Sensation in hand sintact to soft touch. Results & Data Results & Data ([facility]) Vital Signs (Past 12 Hours) Vital Signs Temp Pulse Pulse Resp BP BP Pulse Ox 09/24/22 10:00 62 18 107/70 99 09/24/22 10:05 68 24 107/70 99 09/24/22 10:00 63 22 106/68 98 09/24/22 09:55 62 20 102/65 98 09/24/22 09:50 62 18 95/63 L 100 09/24/22 09:45 63 20 95/64 L 100 09/24/22 09:40 65 22 104/66 100 09/24/22 09:35 64 28 H 86/66 L 100 09/24/22 09:30 62 24 94/62 L 100 09/24/22 09:25 68 24 119/68 100 09/24/22 09:20 158 H 26 H 97/68 L 100 09/24/22 09:18 167 H 25 H 85/69 L 100 09/24/22 08:20 147 H 10 L 94 09/24/22 08:20 122/88 09/24/22 08:15 91/76 L 09/24/22 08:15 164 H 4 L 93 09/24/22 08:13 89/67 L 09/24/22 08:13 149 H 11 L 93 09/24/22 08:11 95/70 L 09/24/22 08:11 145 H 7 L 91 09/24/22 08:10 151 H 13 92 09/24/22 08:00 09/24/22 08:13 159 H 18 100/67 94 09/24/22 08:06 99/77 L 09/24/22 08:06 175 H 3 L 94 09/24/22 08:04 113/84 09/24/22 08:04 172 H 21 95 09/24/22 08:00 173 H 21 95 09/24/22 08:00 97/79 L 09/24/22 07:55 175 H 21 94 09/24/22 08:03 170 H 101/78 09/24/22 07:33 36.5 C 83 18 110/72 96 O2 Del Method O2 Flow Rate 09/24/22 10:00 Room Air 09/24/22 10:05 Room Air 09/24/22 10:00 Room Air 09/24/22 09:55 Room Air 09/24/22 09:50 Room Air 09/24/22 09:45 Room Air 09/24/22 09:40 Nasal Cannula 2 09/24/22 09:35 Nasal Cannula 2 09/24/22 09:30 Nasal Cannula 4 09/24/22 09:25 Nasal Cannula 4 09/24/22 09:20 Nasal Cannula 4 09/24/22 09:18 Nasal Cannula 4 09/24/22 08:20 09/24/22 08:20 09/24/22 08:15 09/24/22 08:15 09/24/22 08:13 09/24/22 08:13 09/24/22 08:11 09/24/22 08:11 09/24/22 08:10 09/24/22 08:00 Room Air 09/24/22 08:13 Room Air 09/24/22 08:06 09/24/22 08:06 09/24/22 08:04 09/24/22 08:04 09/24/22 08:00 09/24/22 08:00 09/24/22 07:55 09/24/22 08:03 09/24/22 07:33 Room Air PG Care Time/CCT Total # of Minutes Spent Total Time Spent with Patient: Total time spent is greater than 50% in coordination of care (as documented) at patient's floor/unit and/or counseling patient: Coding Level of Care Code 72895 INT INP/OBS CARE MIN Diagnoses Atrial fibrillation with RVR I48.91 COVID U07.1 HTN (hypertension) I10 Elevated troponin R77.8 Hypokalemia E87.6
[2022-09-24] MEDS: HEPARIN SODIUM/DEXTROSE 25,000 UNITS/500 ML BAG IV SCH (11:10)
[2022-09-24] MEDS: POTASSIUM CHLORIDE / WTR 10 MEQ/100 ML PLCT IV SCH ×2 (11:12→12:18)
--- NOTE | 2022-09-24 15:09 | Emergency Department Note ---
Pre Sedation Assessment Vital Signs Temp Pulse Pulse Resp BP BP Pulse Ox 09/24/22 10:30 71 93 09/24/22 10:30 108/73 09/24/22 10:15 118/75 09/24/22 10:15 66 09/24/22 10:00 64 98 09/24/22 10:00 107/70 09/24/22 09:56 103/72 09/24/22 09:56 63 98 09/24/22 09:55 63 99 09/24/22 09:55 102/65 09/24/22 09:50 63 99 09/24/22 09:50 95/64 L 09/24/22 09:45 104/66 09/24/22 09:45 64 100 09/24/22 09:40 86/66 L 09/24/22 09:40 66 100 09/24/22 09:35 62 100 09/24/22 09:35 94/62 L 09/24/22 09:30 65 100 09/24/22 09:30 100/68 09/24/22 09:25 119/82 09/24/22 09:25 71 100 09/24/22 09:16 100/69 09/24/22 09:16 154 H 09/24/22 09:10 134 H 22 94 09/24/22 09:10 85/69 L 09/24/22 09:09 84/69 L 09/24/22 09:09 146 H 4 L 96 09/24/22 09:06 139 H 13 95 09/24/22 09:06 87/57 L 09/24/22 09:01 96/72 L 09/24/22 09:01 146 H 17 94 09/24/22 10:00 62 18 107/70 99 09/24/22 10:05 68 24 107/70 99 09/24/22 10:00 63 22 106/68 98 09/24/22 09:55 62 20 102/65 98 09/24/22 09:50 62 18 95/63 L 100 09/24/22 09:45 63 20 95/64 L 100 09/24/22 09:40 65 22 104/66 100 09/24/22 09:35 64 28 H 86/66 L 100 09/24/22 09:30 62 24 94/62 L 100 09/24/22 09:25 68 24 119/68 100 09/24/22 09:20 158 H 26 H 97/68 L 100 09/24/22 09:18 167 H 25 H 85/69 L 100 09/24/22 08:20 147 H 10 L 94 09/24/22 08:20 122/88 09/24/22 08:15 91/76 L 09/24/22 08:15 164 H 4 L 93 09/24/22 08:13 89/67 L 09/24/22 08:13 149 H 11 L 93 09/24/22 08:11 95/70 L 09/24/22 08:11 145 H 7 L 91 09/24/22 08:10 151 H 13 92 09/24/22 08:00 09/24/22 08:13 159 H 18 100/67 94 09/24/22 08:06 99/77 L 09/24/22 08:06 175 H 3 L 94 09/24/22 08:04 113/84 09/24/22 08:04 172 H 21 95 09/24/22 08:00 173 H 21 95 09/24/22 08:00 97/79 L 09/24/22 07:55 175 H 21 94 09/24/22 08:03 170 H 101/78 09/24/22 07:33 36.5 C 83 18 110/72 96 O2 Del Method O2 Flow Rate 09/24/22 10:30 09/24/22 10:30 09/24/22 10:15 09/24/22 10:15 09/24/22 10:00 09/24/22 10:00 09/24/22 09:56 09/24/22 09:56 09/24/22 09:55 09/24/22 09:55 09/24/22 09:50 09/24/22 09:50 09/24/22 09:45 09/24/22 09:45 09/24/22 09:40 09/24/22 09:40 09/24/22 09:35 09/24/22 09:35 09/24/22 09:30 09/24/22 09:30 09/24/22 09:25 09/24/22 09:25 09/24/22 09:16 09/24/22 09:16 09/24/22 09:10 09/24/22 09:10 09/24/22 09:09 09/24/22 09:09 09/24/22 09:06 09/24/22 09:06 09/24/22 09:01 09/24/22 09:01 09/24/22 10:00 Room Air 09/24/22 10:05 Room Air 09/24/22 10:00 Room Air 09/24/22 09:55 Room Air 09/24/22 09:50 Room Air 09/24/22 09:45 Room Air 09/24/22 09:40 Nasal Cannula 2 09/24/22 09:35 Nasal Cannula 2 09/24/22 09:30 Nasal Cannula 4 09/24/22 09:25 Nasal Cannula 4 09/24/22 09:20 Nasal Cannula 4 09/24/22 09:18 Nasal Cannula 4 09/24/22 08:20 09/24/22 08:20 09/24/22 08:15 09/24/22 08:15 09/24/22 08:13 09/24/22 08:13 09/24/22 08:11 09/24/22 08:11 09/24/22 08:10 09/24/22 08:00 Room Air 09/24/22 08:13 Room Air 09/24/22 08:06 09/24/22 08:06 09/24/22 08:04 09/24/22 08:04 09/24/22 08:00 09/24/22 08:00 09/24/22 07:55 09/24/22 08:03 09/24/22 07:33 Room Air Pre-Sedation Airway Assessment Smoking Status: Never smoker Short, Thick Neck: No Thyromental Distance: > or= 3.5 Finger Breadths Oral Cavity: + WNL Mallampati Class: I ASA: ASA1 NPO Status Date of Last Intake of Fluids: 09/24/22 Time of Last Intake of Fluids: 06:00 Last Oral Intake of Fluids Comment: sips with meds Date of Last Intake of Solid Food: 09/22/22 Notes The planned sedation has been discussed with the patient. Informed Consent was obtained. I have identified the patient, determined the appropriateness of sedation and have assessed the patient immediately prior to the procedure. All medicine(s) and interventions are by my order.
--- NOTE | 2022-09-24 15:10 | Emergency Department Note ---
Post Sedation Assessment Vital Signs Temp Pulse Pulse Resp BP BP Pulse Ox 09/24/22 10:30 71 93 09/24/22 10:30 108/73 09/24/22 10:15 118/75 09/24/22 10:15 66 09/24/22 10:00 64 98 09/24/22 10:00 107/70 09/24/22 09:56 103/72 09/24/22 09:56 63 98 09/24/22 09:55 63 99 09/24/22 09:55 102/65 09/24/22 09:50 63 99 09/24/22 09:50 95/64 L 09/24/22 09:45 104/66 09/24/22 09:45 64 100 09/24/22 09:40 86/66 L 09/24/22 09:40 66 100 09/24/22 09:35 62 100 09/24/22 09:35 94/62 L 09/24/22 09:30 65 100 09/24/22 09:30 100/68 09/24/22 09:25 119/82 09/24/22 09:25 71 100 09/24/22 09:16 100/69 09/24/22 09:16 154 H 09/24/22 09:10 134 H 22 94 09/24/22 09:10 85/69 L 09/24/22 09:09 84/69 L 09/24/22 09:09 146 H 4 L 96 09/24/22 09:06 139 H 13 95 09/24/22 09:06 87/57 L 09/24/22 09:01 96/72 L 09/24/22 09:01 146 H 17 94 09/24/22 10:00 62 18 107/70 99 09/24/22 10:05 68 24 107/70 99 09/24/22 10:00 63 22 106/68 98 09/24/22 09:55 62 20 102/65 98 09/24/22 09:50 62 18 95/63 L 100 09/24/22 09:45 63 20 95/64 L 100 09/24/22 09:40 65 22 104/66 100 09/24/22 09:35 64 28 H 86/66 L 100 09/24/22 09:30 62 24 94/62 L 100 09/24/22 09:25 68 24 119/68 100 09/24/22 09:20 158 H 26 H 97/68 L 100 09/24/22 09:18 167 H 25 H 85/69 L 100 09/24/22 08:20 147 H 10 L 94 09/24/22 08:20 122/88 09/24/22 08:15 91/76 L 09/24/22 08:15 164 H 4 L 93 09/24/22 08:13 89/67 L 09/24/22 08:13 149 H 11 L 93 09/24/22 08:11 95/70 L 09/24/22 08:11 145 H 7 L 91 09/24/22 08:10 151 H 13 92 09/24/22 08:00 09/24/22 08:13 159 H 18 100/67 94 09/24/22 08:06 99/77 L 09/24/22 08:06 175 H 3 L 94 09/24/22 08:04 113/84 09/24/22 08:04 172 H 21 95 09/24/22 08:00 173 H 21 95 09/24/22 08:00 97/79 L 09/24/22 07:55 175 H 21 94 09/24/22 08:03 170 H 101/78 09/24/22 07:33 36.5 C 83 18 110/72 96 O2 Del Method O2 Flow Rate 09/24/22 10:30 09/24/22 10:30 09/24/22 10:15 09/24/22 10:15 09/24/22 10:00 09/24/22 10:00 09/24/22 09:56 09/24/22 09:56 09/24/22 09:55 09/24/22 09:55 09/24/22 09:50 09/24/22 09:50 09/24/22 09:45 09/24/22 09:45 09/24/22 09:40 09/24/22 09:40 09/24/22 09:35 09/24/22 09:35 09/24/22 09:30 09/24/22 09:30 09/24/22 09:25 09/24/22 09:25 09/24/22 09:16 09/24/22 09:16 09/24/22 09:10 09/24/22 09:10 09/24/22 09:09 09/24/22 09:09 09/24/22 09:06 09/24/22 09:06 09/24/22 09:01 09/24/22 09:01 09/24/22 10:00 Room Air 09/24/22 10:05 Room Air 09/24/22 10:00 Room Air 09/24/22 09:55 Room Air 09/24/22 09:50 Room Air 09/24/22 09:45 Room Air 09/24/22 09:40 Nasal Cannula 2 09/24/22 09:35 Nasal Cannula 2 09/24/22 09:30 Nasal Cannula 4 09/24/22 09:25 Nasal Cannula 4 09/24/22 09:20 Nasal Cannula 4 09/24/22 09:18 Nasal Cannula 4 09/24/22 08:20 09/24/22 08:20 09/24/22 08:15 09/24/22 08:15 09/24/22 08:13 09/24/22 08:13 09/24/22 08:11 09/24/22 08:11 09/24/22 08:10 09/24/22 08:00 Room Air 09/24/22 08:13 Room Air 09/24/22 08:06 09/24/22 08:06 09/24/22 08:04 09/24/22 08:04 09/24/22 08:00 09/24/22 08:00 09/24/22 07:55 09/24/22 08:03 09/24/22 07:33 Room Air Recovery Score Activity: Moves 4 extremities Respiration: Deep Breath/Cough Circulation: +/-20% PreAnes Value Consciousness: Fully Awake Oxygen Saturation: > 92% On Room Air Post Anesthesia Score: 10 Discharge Sedation Level of Care: Fast Track Phase II Unexpected Event: None Post Sedation Plan On clinical assessment, the patient appears to have tolerated the sedation without complications. Patient is recovering as anticipated. Patient will continue to be monitored by nursing and may be discharged when sedation discharge criteria are met per below protocol. Upon Completions of procedure up to 15 minutes continue every 5 minute vital signs and the P.A.R. score; then discharge to a Phase I or Fast Track to Phase II per the following guidelines: * Discharge Patient to appropriate Phase II area if PAR is 8 or greater or return to pre- procedure baseline. The post - procedure orders will be as directed. * If PAR score is less than 8 or not return to pre-procedure baseline then patient will follow Phase I monitoring till PAR is reached for Phase II. The Phase I may be done in procedure room or may call to secure a Phase I area. * If naloxone or flumazenil are used for reversal, hold in Phase I for continued monitoring from when last reversal dose was given for a minimum of 60 minutes or longer pending the nurse and/or physician discretion of patient condition before discharge to Phase II. Please call the Sedation Physician to re-evaluate and complete post-note for discharge to Phase II area. Do NOT discharge from procedure sedation or Phase 1 until post- sedation evaluation note is complete by procedure /sedation MD Sedation Discharge Instructions to be given to the patient at discharge to home. Sedation Data Sedation Times Sedation Start Date: 09/24/22 Sedation Start Time: 09:20 Sedation End Date: 09/24/22 Sedation End Time: 09:35 Total Sedation Time: 15 Procedure Times Procedure Start Time:: :20 Procedure End Time: 09:22
[2022-09-24] MEDS ORDERED: ACETAMINOPHEN 325 MG TAB PO PRN (16:00)
[2022-09-24] MEDS ORDERED: POLYETHYLENE (MIRALAX) 17 GM PACK PO PRN (16:00)
[2022-09-24] MEDS: MAGNESIUM OXIDE 400 MG TAB PO SCH (16:54)
[2022-09-24 19:03] LABS: Partial Thromboplastin Ratio > 5.1
[2022-09-24 19:22] LABS: Partial Thromboplastin Time > 139.0 Seconds (21.0-31.0)
[2022-09-24] MEDS: METOPROLOL TARTRATE 25 MG TAB PO SCH (20:51)
[2022-09-24] MEDS: POTASSIUM CHLORIDE CRTAB 20 MEQ TABCR PO SCH (20:51)
[2022-09-24 21:57] LABS: Partial Thromboplastin Ratio 2.7
[2022-09-24 22:15] LABS: Partial Thromboplastin Time 73.3 Seconds (21.0-31.0)
[2022-09-25 05:01] LABS: Partial Thromboplastin Ratio 3.5
[2022-09-25] MEDS: HEPARIN SODIUM/DEXTROSE 25,000 UNITS/500 ML BAG IV SCH (05:37)
[2022-09-25] MEDS: MAGNESIUM OXIDE 400 MG TAB PO SCH (09:04)
[2022-09-25] MEDS: POTASSIUM CHLORIDE CRTAB 20 MEQ TABCR PO SCH (09:05)
[2022-09-25] MEDS: METOPROLOL TARTRATE 25 MG TAB PO SCH (09:05)
--- NOTE | 2022-09-25 11:16 | Cardiology Consultation ---
Date of Consultation September 25, 2022 Assessment & Plan (1) Atrial fibrillation with RVR: (2) Elevated troponin: (3) Pericardial effusion: (4) COVID: (5) HTN (hypertension): Plan ASSESSMENT/PLAN: 1. Atrial fibrillation with rapid ventricular response: Converted in the emergency department with direct-current cardioversion. Has remained in sinus rhythm since then. Was quite symptomatic. We discussed the diagnosis in detail, including treatment strategies. It has been approximately 6 years since his only other known episode. Therefore, can continue beta-jo and will hold off on antiarrhythmic therapy. If he has recurrent episodes in short order, would consider antiarrhythmic therapy or ablation. He and his are very comfortable with this approach. Elevated [id number] score and would continue anticoagulation for now for stroke risk reduction. Long-term treatment can be further determined by his primary batch unit treater, Dr. Lepe. Echo recommended and ordered. 2. Pericardial effusion: Small pericardial effusion without tamponade physiology. Possibly likely due to COVID-19 infection. Recommend outpatient echo for surveillance purposes with his primary batch unit treater. No symptoms concerning for pericarditis. 3. Elevated troponin: Likely due to demand ischemia in the setting of A. fib with RVR and underlying viral infection. Did not present with acute coronary syndrome. No angina. 4. Hypertension: Blood pressure well controlled. Continue home regimen. 5. COVID-19 infection: As per primary service. This and dry heaving may have helped precipitate atrial fibrillation episode. 6. Disposition: Follow-up with primary batch unit treater, Dr. Lepe in approximately 1 week. Patient care and recommendations communicated with primary hospitalist, Dr. Canales. Thank you for allowing me to participate in the care of your patient. Please call for any other questions or concerns. Sincerely, Nazario Serna M.D. History of Present Illness Reason for Consultation: Atrial fibrillation s/p cardioversion Requesting Physician: Todd Jordan Attending Physician: Florina Canales MD History of Present Illness Mr. Karimi is a very pleasant 67-year-old gentleman with a history significant for paroxysmal atrial fibrillation, hypertension, and dyslipidemia. His primary batch unit treater is Dr. Lepe. In 2017, he had atrial fibrillation which spontaneously converted after a few hours. He has not had any atrial fibrillation since then to his knowledge until 09/24/2022. He has been quite symptomatic with both episodes. He developed chills and general unwell feeling on 09/20/2022. He eventually was diagnosed with COVID-19 infection, but has been starting to feel better. No documented fevers. He has not required any treatment. On 09/24/2022, at approximately 4 AM in the morning, he was having dry heaves and then immediately after, significant palpitations as though his heart was racing. He reported to the emergency department and was found to be in A. fib with RVR with heart rates in the 180s. He was given intravenous metoprolol, total of 15 mg by the emergency department and hypotension occurred. He was then cardioverted. The first 2 attempts were unsuccessful, but eventually 360 J were delivered and successfully converted to sinus rhythm. He denies chest pain, shortness of breath, syncope, near syncope, edema, or bleeding. He walks daily for approximately 20 minutes and tolerates it well without exertional symptoms. He denies a history of diabetes, CHF, TIA, stroke, vascular disease. Review of systems: As above. Review of systems otherwise negative/unremarkable. Family history: Brother has CAD. Social history: Denies smoking, alcohol abuse, drug abuse. He lives at home with his . They have 1 adult son. His presented to the bedside during our conversation. Allergies Allergy/AdvReac Type Severity Reaction Status Date / Time No Known Allergies Allergy + Unverified 01/25/20 08:23 Home Medications Medication Instructions Recorded Confirmed Type lisinopril 10 mg tablet (Zestril) 10 mg PO QAM #0 tabs 11/05/17 09/24/22 History metoprolol succinate 25 mg 25 mg PO DAILY 09/24/22 09/24/22 History tablet,extended release 24 hr rosuvastatin 10 mg tablet 25 mg PO DAILY 09/24/22 09/24/22 History apixaban 5 mg tablet (Eliquis) 5 mg PO BID 90 days #180 tabs 09/25/22 Rx Patient History Medical History Dyslipidemia HTN (hypertension) Paroxysmal atrial fibrillation Social History (Updated 09/24/22 @ 11:13 by Todd Jordan MD) Smoking Status: Never smoker Hx Alcohol Use: No Hx Substance Use: No Preferred Language: Honduran Communication Ability: Effective Annual Giving Director Required: No Beliefs That Will Affect Care: None Current Living Situation: Spouse Feels Safe at Home: Yes Safety Concerns: Feels Safe At This Time Assistive Devices: None Physical Exam Physical Exam: Gen.: No acute distress. Alert and oriented. HEENT: Anicteric sclera. Neck: No JVD. No bruits. Normal carotid upstrokes bilaterally. Cardiac: PMI was nondisplaced. No ventricular heave. Regular. Normal S1-S2. No murmurs, rubs, or gallops. Pulmonary: Clear to auscultation bilaterally without wheezes, rales, or rhonchi. Abdomen: Soft, nontender, nondistended, with normoactive bowel sounds. No bruits noted. Extremities: 2+ radial pulses bilaterally. 2+ posterior tibialis pulses bilaterally. No edema or cyanosis. Psychiatric: Affect appears appropriate. Results & Data ([facility]) Vital Signs (Past 12 Hours) Vital Signs Temp Pulse Pulse Resp BP Pulse Ox O2 Del Method 09/25/22 09:32 Room Air 09/25/22 08:27 36.9 C 66 18 134/80 93 Room Air 09/25/22 03:35 64 09/25/22 03:05 36.9 C 61 18 124/74 94 Room Air 09/24/22 23:44 36.9 C 65 16 147/91 H 95 Room Air Laboratory Results Laboratory Results - last 24 hr 09/24/22 09/24/22 09/24/22 11:05 18:15 18:15 APTT > 139.0 H* PTT Ratio > 5.1 Magnesium Troponin I High Sens 167.1 H* D 169.8 H* 09/24/22 09/25/22 09/25/22 21:17 00:32 04:17 APTT 73.3 H* 97.0 H* PTT Ratio 2.7 3.5 Magnesium Troponin I High Sens 151.0 H* 09/25/22 09/25/22 04:17 04:17 APTT PTT Ratio Magnesium 1.9 Troponin I High Sens 131.9 H* Diagnostic Findings ECHO 09/25/22: 1. Normal left ventricular size and systolic function. EF 60-65%. No regional wall motion abnormalities. Moderate concentric left ventricular hypertrophy. 2. No significant valvular abnormalities. 3. Small pericardial effusion without echocardiographic evidence of tamponade physiology. 4. Normal estimated right ventricular systolic pressure. 5. Compared to prior study on 10/31/2016, pericardial effusion is now present. Telemetry personally reviewed: Michi. mayte with rapid ventricular response converted to sinus rhythm on 09/24/2022 at 9:20 AM. Has remained in sinus rhythm on telemetry since then. ECGs personally reviewed: ECG 09/24/2022 at 7:51 AM: A. mayte with RVR [address] abnormality. ECG 09/24/2022 at 9:26 AM: Sinus rhythm 76 bpm. PAC. Chest x-ray 09/24/2022: Image personally reviewed: No infiltrate. No pleural effusion. Radiology has interpreted as no acute process. Admitting history and physical reviewed from 09/24/2022. Emergency room visit notes reviewed from 09/24/2022. Medications Administered Current Inpatient Medications Acetaminophen (Acetaminophen 325 Mg Tab) 650 mg PO Q4H PRN PRN Reason: Pain or Fever Stop: 10/24/22 15:59 Heparin Sodium/Dextrose (Heparin Sodium/Dextrose) 25,000 units in 500 mls @ 34 mls/hr IV .[id number] [facility]; Protocol Stop: 10/24/22 09:44 Last Titration: 09/25/22 07:02 Dose: 0 units/hr, 0 mls/hr Magnesium Oxide (Magnesium Oxide 400 Mg Tab) 400 mg PO DAILY [facility] Stop: 10/24/22 15:59 Last Admin: 09/25/22 09:04 Dose: 400 mg Metoprolol Tartrate (Metoprolol Tartrate 1 Mg/Ml Vial) 5 mg IV Q5M PRN PRN Reason: Tachycardia Stop: 10/24/22 08:09 Last Admin: 09/24/22 08:22 Dose: 5 mg Metoprolol Tartrate (Metoprolol Tartrate 25 Mg Tab) 12.5 mg PO BID [facility] Stop: 10/24/22 20:59 Last Admin: 09/25/22 09:05 Dose: 12.5 mg Polyethylene Glycol (Polyethylene (Miralax) 17 Gm Pack) 17 gm PO DAILY PRN PRN Reason: Constipation Stop: 10/24/22 15:59 PG Care Time/CCT Total # of Minutes Spent Total Time Spent with Patient: Total time spent is greater than 50% in coordination of care (as documented) at patient's floor/unit and/or counseling patient: Coding Level of Care Code 77854 INT INP/OBS CARE MIN Diagnoses Atrial fibrillation with RVR I48.91 Elevated troponin R77.8 Pericardial effusion I31.39 COVID U07.1 HTN (hypertension) I10
[2022-09-25] MEDS ORDERED: APIXABAN 5 MG TABLET PO SCH (11:45)
--- NOTE | 2022-09-25 14:20 | XCELERA ---
[id number]
--- NOTE | 2022-09-25 14:50 | Discharge Summary ---
Date of Service September 25, 2022 Admission HPI Per Admitting Provider Sai Karimi is a 67-year-old male who presented to the emergency department with palpitations. Has a remote history of A. fib in 2017 which converted without electrical cardioversion and has been without known A. fib since. Patient was positive for COVID yesterday with diarrhea, sinus congestion, and fatigue. This morning his heart began racing with palpitations and patient presented to the emergency department for evaluation. On ER evaluation patient had an irregularly irregular rhythm consistent with A. fib and a heart rate in the 180s consistent with RVR. Patient with hemodynamic instability in the ER with intermittent hypotension following attempts at IV Lopressor rate control, due to his hypotension with continued RVR and instability patient was emergently electrically cardioverted. Patient had 2 shocks without conversion, and converted after third shock. He was subsequently placed on IV heparin drip and bolus. He did not show evidence of stroke. Patient did have a elevated troponin in the setting of RVR. No leukocytosis Hemoglobin 18.7, clinically volume contracted Sodium 132 Potassium 3.3, optimize to 4.0 Creatinine is normal 1.12 on admission High-sensitivity troponin 117 in the setting of RVR, trended. COVID + 09/23/2022 Sick fevers/chills Monday (5 days ago). Morning of admit heart was racing 'knew as soon as I felt that it wasn't right' and came in. To be in A. fib RVR as noted above Patient seen emergency department yesterday for fevers and chills with some drug use for around 3-4 days, was found to have COVID without hypoxia and discharged home with supportive care. Patient was not and has not been hypoxic and is without shortness of breath. No sputum production. First time thinks he got a medicine for afib, but didn't need to be shocked out of it. Did not talk about blood clot risk at that time, this was around 2017. Does take metoprolol daily along with lisinopril for hypertension. Palpitation without chest pain at onset, patient felt like he had a strange fluttering and a difficulty described quality in the left chest which did not radiate to his neck or shoulder. Has since resolved. Patient not short of breath on assessment He reports that he has not had problems with chest pain either at rest or with exertion leading up to this. Has not had shortness of breath/diaphoresis leading up to this. No history of NC, other Of A. fib no heart abnormalities to his knowledge. Denies any alcohol use, no history of SELENE NO hx of CVA, DM, NC, thyroid problems, bleeding problems No FHX of DM, CVA, NC, thyroid problems, bleeding/clots CXR: No acute findings Initial EKG: Postconversion EKG: Normal sinus rhythm, QTC 420, no territorial ST segment changes or T wave inversions. Medical History: Reviewed Medications: Reviewed Surgical History: Reviewed Allergies: Reviewed Social History: No tobacco Code Status: Full Code Principal Diagnosis Afib Discharge Exam The patient is awake, alert and oriented 3, well developed and well nourished, normocephalic and atraumatic, lying in bed and in no acute distress. HEENT--PERRL, EOMI, mucous membranes and oropharynx mildly dry Neck--supple. No JVD. No bruits. Thyroid normal, trachea midline, no adenopathy. Heart--normal S1 and S2. No murmurs, rubs or gallops. Lungs--clear bilaterally, no respiratory distress, no accessory muscle use. Abdomen--normal bowel sounds and soft. Mild epigastric and left sided abdominal pain Extremities--no cyanosis or clubbing. No edema. Dermatologic--normal skin turgor, normal color, no abnormal lymph nodes, no rash. Neurologic--cranial nerves II through XII grossly intact. Rheumatologic--normal range of motion. Psychiatric--normal affect. Discharge Data Allergies Allergy/AdvReac Type Severity Reaction Status Date / Time No Known Allergies Allergy + Unverified 01/25/20 08:23 Consultations 09/24/22 16:00 Consult Cardiology Routine Hospital Course (1) Atrial fibrillation with RVR: Afib RVR s/p Electrical Cardioversion Likely precipitated by hypokalemia and COVID Denies history of alcohol use, SELENE, tobacco use - Afib RBR 180s on arrival. Hypotensive after lopressor 5mg x3 without RVR control --> 3x sync cardioversion shocks with conversion following 3rd shock, etomidate for sedation. Subsequently in NSR, rate 60s Placed on heparin drip in ER - Pt with 1 episode afib 2016, converted after taking medication, patient is not sure what. Did not need electrical cardioversion and has taken metoprolol at home [id number] 2. Recommend anticoagulation, currently on heparin gtt. If doing well and troponin peak/downtrend --> convert to DOAC Continue metoprolol, 25 mg daily dose temporarily converted to 12.5 mg tartrate twice daily, uptitrate to 50 TDD if tolerated. Patient with borderline hypotension after conversion and 15 mg IV Lopressor. Hold for heart rate less than 60, BP less than 100. Echo shows mild pericardial effusion, normal EF Cardiology consulted. -Discharge on Eliquis (2) COVID: COVID-19 - On approximately day 5 of symptoms Nonvaccinated No hypoxia, lungs are clear without wheezes/rales No steroids or remdesivir indicated at this time Is anticoagulated for A. fib above continue supportive care at this time, no additional treatment indicated. (3) HTN (hypertension): HTN -Lisinopril held for relative hypotension after IV metoprolol as above, resume tomorrow if normotensive - Continue Metoprolol as noted (4) Elevated troponin: Elevated troponin In the setting of A. fib RVR, suggestive of demand No history of NC/CHF Troponin series pending Echo pending -Patient had a feeling that he would not qualify his pain, but strong palpitations which resolved after cardioversion. At time of assessment is chest pain-free without shortness of breath (5) Hypokalemia: Hypokalemia - Mg 1.9, potassium 3.3 on admission - Goal Mg 2.0, K 4.0 Repletion ordered, trend Plan DVT PPx: On heparin Diet: N.p.o. pending to her troponin, if no recurrence of A. fib and troponin downtrends progressed to heart healthy diet Code Status: Full Disposition: Telemetry for monitoring following conversion Total Time Total Time Spent Total Time Spent (In Minutes): 35 Discharge Plan Discharge Items Patient Disposition: Home - Self-Care Reason For Visit: AFIB RVR POST CARDIOVERSION Discharge Diagnosis: Afib Activity: Resume your previous activity Non-emergency contact: Primary Care Provider and Therapy Teacher Call non-emergency contact if: you have any medication questions Follow-up/Referrals: Adryan Stallworth MD [Primary Care Provider] - Diet: Regular Addtl Attending Provider Instructions: please make appointment to follow up with your analysis mgr bakari Pending Studies at Discharge: No Stand-Alone Forms[facility] Medications and DC Order Prescriptions: New Eliquis 5 mg Tablet 5 mg PO BID 90 Days Qty: 180 0RF Continued lisinopril [Zestril] 10 mg Tablet 10 mg PO QAM Qty: 0 metoprolol succinate 25 mg tablet extended release 24 hr 25 mg PO DAILY rosuvastatin 10 mg tablet 25 mg PO DAILY Discharge Orders: Discharge Order (Routine); Ordered 09/25/22 Ordered By: Florina Canales Admission Data Admit Date/Time: 09/24/22 10:40 Attending Provider: Florina Canales Admit Provider: Todd Jordan Primary Care Provider: Adryan Stallworth Other Providers: Nadeem Serna Coding Level of Care Code HOSP INP/OBS DISCH >30 MIN Diagnoses Atrial fibrillation with RVR I48.91 COVID U07.1 HTN (hypertension) I10 Elevated troponin R77.8 Hypokalemia E87.6 Time Spent (min) 35
--- NOTE | 2022-09-25 22:09 | Electrocardiogram Report ---
Test Reason : Blood Pressure : / mmHG Vent. Rate : 170 BPM Atrial Rate : 170 BPM P-R Int : 000 ms QRS Dur : 086 ms QT Int : 276 ms P-R-T Axes : 000 -41 066 degrees QTc Int : 464 ms Atrial fibrillation with rapid ventricular response Left axis deviation Nonspecific ST abnormality Abnormal ECG When compared with ECG of 23-SEP-2022 11:46, Atrial fibrillation has replaced Sinus rhythm Vent. rate has increased BY 93 BPM Confirmed by Nadeem Serna ([id number]) on 09/25/2022 10:09:20 PM Referred By: REFERRED SELF Confirmed By:Nadeem Serna
--- NOTE | 2022-09-26 05:42 | Electrocardiogram Report ---
Test Reason : Blood Pressure : / mmHG Vent. Rate : 076 BPM Atrial Rate : 076 BPM P-R Int : 158 ms QRS Dur : 092 ms QT Int : 374 ms P-R-T Axes : 022 -25 046 degrees QTc Int : 420 ms Normal sinus rhythm Premature atrial complexes When compared with ECG of 24-SEP-2022 07:51, Sinus rhythm has replaced Atrial fibrillation Vent. rate has decreased BY 94 BPM Confirmed by Nadeem Serna ([id number]) on 09/26/2022 5:42:23 AM Referred By: REFERRED SELF Confirmed By:Nadeem Serna
== END 2022-09-25 15:52 | disposition home or self-care (01) ==
LOC: ED 07:29 → EDINP 07:29 → SUATTDRO 10:40 → 2S 15:14

== ENCOUNTER 2022-09-26 07:30 | Inpatient (IN) ==
--- NOTE | 2022-09-26 07:50 | Emergency Department Note ---
History of Present Illness General Chief complaint: Chest Pain Stated complaint: CHEST PAIN Time Seen by Provider: 09/26/22 07:38 History of Present Illness Maximum Pain Intensity: 3 This is a 67-year-old male with a history of atrial fibrillation in the setting of recent COVID-19 diagnosis that presents to the emergency department via private vehicle with complaints of "irregular heartbeat". Patient was recently here in the ED and diagnosed with COVID-19 and subsequently about a day later presented for evaluation of A. fib with RVR. Cardioversion performed and he was subsequently admitted to the hospital for further evaluation and management. Patient was then discharged yesterday and has been doing well up until this morning about 45 minutes prior to arrival. He felt an odd sensation in his chest as if his heart was beating irregularly. He denies any chest pain. He does note that Eliquis was sent to his pharmacy and he planed on picking it up this morning but has not done so as of yet. He notes he did receive a dose yesterday prior to discharge. Patient notes that while in the check-in area from the ED he did have an episode where he felt lightheaded/dizzy but that resolved. No chest pain. Home Medications Medication Instructions Recorded Confirmed Type lisinopril 10 mg tablet (Zestril) 10 mg PO QAM #0 tabs 11/05/17 09/24/22 History metoprolol succinate 25 mg 25 mg PO DAILY 09/24/22 09/24/22 History tablet,extended release 24 hr rosuvastatin 10 mg tablet 25 mg PO DAILY 09/24/22 09/24/22 History apixaban 5 mg tablet (Eliquis) 5 mg PO BID 90 days #180 tabs 09/25/22 Rx Allergies Allergy/AdvReac Type Severity Reaction Status Date / Time No Known Allergies Allergy + Unverified 01/25/20 08:23 Past Med/Surg History Medical History Dyslipidemia HTN (hypertension) Paroxysmal atrial fibrillation Social History Smoking Status: Never smoker Hx Alcohol Use: No Hx Substance Use: No Preferred Language: Hebrew Communication Ability: Effective 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 [employer] Metal Required: No Beliefs That Will Affect Care: None Current Living Situation: Spouse Feels Safe at Home: Yes Assistive Devices: None Review of Systems A total of 10 systems reviewed and were otherwise negative Physical Exam Vital Signs Vital Signs - 24 hr 09/26/22 07:32 09/26/22 07:59 09/26/22 08:39 Temperature 36.5 C Temperature Source Oral Pulse Rate 104 H 160 H Pulse Rate [Apical] 180 H Pulse Rate from SpO2 Sensor Pulse Rhythm [Apical] Regular Respiratory Rate 18 20 Respiratory Effort / Characteristics Non-Labored Spontaneous Respiratory Depth Normal Blood Pressure 88/66 L 102/70 Blood Pressure [Left Arm] 91/67 L Blood Pressure Mean 73 Blood Pressure Mean [Left Arm] 75 Pulse Oximetry 96 98 Oxygen Delivery Method Room Air Room Air Sepsis Recent Fever Within 48 Hours No Sepsis New/Unexplained Change in Mental Status No Sepsis Action Taken by Nursing No Action Required 09/26/22 07:52 09/26/22 07:55 09/26/22 08:00 Temperature Temperature Source Pulse Rate 178 H 200 H 205 H Pulse Rate [Apical] Pulse Rate from SpO2 Sensor 95 H Pulse Rhythm [Apical] Respiratory Rate 13 15 14 Respiratory Effort / Characteristics Respiratory Depth Blood Pressure Blood Pressure [Left Arm] Blood Pressure Mean Blood Pressure Mean [Left Arm] Pulse Oximetry 94 Oxygen Delivery Method Sepsis Recent Fever Within 48 Hours Sepsis New/Unexplained Change in Mental Status Sepsis Action Taken by Nursing 09/26/22 08:01 09/26/22 08:01 09/26/22 08:04 Temperature Temperature Source Pulse Rate 201 H 201 H Pulse Rate [Apical] Pulse Rate from SpO2 Sensor 100 H Pulse Rhythm [Apical] Respiratory Rate 16 12 Respiratory Effort / Characteristics Respiratory Depth Blood Pressure 97/72 L Blood Pressure [Left Arm] Blood Pressure Mean 80 Blood Pressure Mean [Left Arm] Pulse Oximetry 95 Oxygen Delivery Method Sepsis Recent Fever Within 48 Hours Sepsis New/Unexplained Change in Mental Status Sepsis Action Taken by Nursing 09/26/22 08:04 09/26/22 08:05 09/26/22 08:05 Temperature Temperature Source Pulse Rate 190 H Pulse Rate [Apical] Pulse Rate from SpO2 Sensor 104 H Pulse Rhythm [Apical] Respiratory Rate 14 Respiratory Effort / Characteristics Respiratory Depth Blood Pressure 119/75 119/82 Blood Pressure [Left Arm] Blood Pressure Mean 89 94 Blood Pressure Mean [Left Arm] Pulse Oximetry 97 Oxygen Delivery Method Sepsis Recent Fever Within 48 Hours Sepsis New/Unexplained Change in Mental Status Sepsis Action Taken by Nursing 09/26/22 08:10 09/26/22 08:10 09/26/22 08:15 Temperature Temperature Source Pulse Rate 180 H Pulse Rate [Apical] Pulse Rate from SpO2 Sensor 112 H Pulse Rhythm [Apical] Respiratory Rate 13 Respiratory Effort / Characteristics Respiratory Depth Blood Pressure 104/71 112/75 Blood Pressure [Left Arm] Blood Pressure Mean 82 87 Blood Pressure Mean [Left Arm] Pulse Oximetry 96 Oxygen Delivery Method Sepsis Recent Fever Within 48 Hours Sepsis New/Unexplained Change in Mental Status Sepsis Action Taken by Nursing 09/26/22 08:15 09/26/22 08:20 09/26/22 08:20 Temperature Temperature Source Pulse Rate 179 H 162 H Pulse Rate [Apical] Pulse Rate from SpO2 Sensor 93 H 141 H Pulse Rhythm [Apical] Respiratory Rate 18 20 Respiratory Effort / Characteristics Respiratory Depth Blood Pressure 122/82 Blood Pressure [Left Arm] Blood Pressure Mean 95 Blood Pressure Mean [Left Arm] Pulse Oximetry 94 97 Oxygen Delivery Method Sepsis Recent Fever Within 48 Hours Sepsis New/Unexplained Change in Mental Status Sepsis Action Taken by Nursing 09/26/22 08:25 09/26/22 08:25 09/26/22 08:30 Temperature Temperature Source Pulse Rate 166 H Pulse Rate [Apical] Pulse Rate from SpO2 Sensor 125 H Pulse Rhythm [Apical] Respiratory Rate 19 Respiratory Effort / Characteristics Respiratory Depth Blood Pressure 124/82 106/78 Blood Pressure [Left Arm] Blood Pressure Mean 96 87 Blood Pressure Mean [Left Arm] Pulse Oximetry 95 Oxygen Delivery Method Sepsis Recent Fever Within 48 Hours Sepsis New/Unexplained Change in Mental Status Sepsis Action Taken by Nursing 09/26/22 08:30 09/26/22 08:35 09/26/22 08:35 Temperature Temperature Source Pulse Rate 161 H 179 H Pulse Rate [Apical] Pulse Rate from SpO2 Sensor 117 H 127 H Pulse Rhythm [Apical] Respiratory Rate 14 12 Respiratory Effort / Characteristics Respiratory Depth Blood Pressure 102/70 Blood Pressure [Left Arm] Blood Pressure Mean 80 Blood Pressure Mean [Left Arm] Pulse Oximetry 95 98 Oxygen Delivery Method Sepsis Recent Fever Within 48 Hours Sepsis New/Unexplained Change in Mental Status Sepsis Action Taken by Nursing 09/26/22 08:40 09/26/22 08:40 09/26/22 08:45 Temperature Temperature Source Pulse Rate 146 H 146 H Pulse Rate [Apical] Pulse Rate from SpO2 Sensor 146 H 104 H Pulse Rhythm [Apical] Respiratory Rate 10 L 11 L Respiratory Effort / Characteristics Respiratory Depth Blood Pressure 101/71 Blood Pressure [Left Arm] Blood Pressure Mean 81 Blood Pressure Mean [Left Arm] Pulse Oximetry 97 95 Oxygen Delivery Method Sepsis Recent Fever Within 48 Hours Sepsis New/Unexplained Change in Mental Status Sepsis Action Taken by Nursing 09/26/22 08:46 09/26/22 08:46 09/26/22 08:50 Temperature Temperature Source Pulse Rate 142 H Pulse Rate [Apical] Pulse Rate from SpO2 Sensor 114 H Pulse Rhythm [Apical] Respiratory Rate 13 Respiratory Effort / Characteristics Respiratory Depth Blood Pressure 129/71 101/71 Blood Pressure [Left Arm] Blood Pressure Mean 90 81 Blood Pressure Mean [Left Arm] Pulse Oximetry 96 Oxygen Delivery Method Sepsis Recent Fever Within 48 Hours Sepsis New/Unexplained Change in Mental Status Sepsis Action Taken by Nursing 09/26/22 08:50 Temperature Temperature Source Pulse Rate 147 H Pulse Rate [Apical] Pulse Rate from SpO2 Sensor 105 H Pulse Rhythm [Apical] Respiratory Rate 18 Respiratory Effort / Characteristics Respiratory Depth Blood Pressure Blood Pressure [Left Arm] Blood Pressure Mean Blood Pressure Mean [Left Arm] Pulse Oximetry 96 Oxygen Delivery Method Sepsis Recent Fever Within 48 Hours Sepsis New/Unexplained Change in Mental Status Sepsis Action Taken by Nursing VITAL SIGNS - Vital signs and nursing notes were reviewed. Borderline hy potensive, tachycardic, afebrile. GENERAL -67-year-old male appearing his stated age who is in no acute distress. Communicates well with provider and answers questions appropriately. SKIN - Without rashes. No meningeal or petechial rash. HEAD - NC/AT. EYES - PERRL with EOMI bilaterally. Sclera anicteric. EARS - No deformities of external structures noted on gross examination bilaterally. NOSE - Midline and without cyanosis. No epistaxis or purulent drainage noted. MOUTH/OROPHARYNX - Without perioral cyanosis. NECK - No nuchal rigidity. LUNGS - Chest wall symmetric without accessory muscle use, intercostals retractions, or central cyanosis. Normal vesicular breath sounds CTA B/L. No wheezes, rales, or rhonchi appreciated. CARDIAC -irregular rate and rhythm. EXTREMITIES - No clubbing or peripheral cyanosis. +5/5 strength noted in UE/LE bilaterally. NEUROLOGIC - Cranial nerves II through XII grossly intact. PSYCH - A&O, and cooperates fully with examiner. Pt is very pleasant and intera cts well with examiner. Course Administered Medications Apixaban (Apixaban 5 Mg Tablet) 5 mg PO BID [facility] Stop: 10/26/22 20:59 Last Admin: 09/26/22 20:01 Dose: 5 mg Documented By: TORITO Amiodarone HCl/Dextrose (Nexterone / D5w) 360 mg in 200 mls @ 16.667 mls/hr IV .Q12H [facility] Stop: 10/26/22 19:44 Last Admin: 09/26/22 20:02 Dose: 0.5 mg/min, 16.7 mls/hr Documented By: TORITO Co-signed By: MARTY Lisinopril (Lisinopril 10 Mg Tab) 10 mg PO QAM [facility] Stop: 10/26/22 13:05 Last Admin: 09/26/22 14:07 Dose: Not Given Documented By: COLLEEN Metoprolol Succinate (Metoprolol Succ 25mg Ext Rel Tab) 25 mg PO DAILY [facility] Stop: 10/26/22 13:05 Last Admin: 09/26/22 14:07 Dose: Not Given Documented By: COLLEEN Rosuvastatin Calcium (Rosuvastatin Calcium 10 Mg Tab) 10 mg PO DAILY [facility] Stop: 10/26/22 13:29 Last Admin: 09/26/22 14:25 Dose: 10 mg Documented By: COLLEEN Discontinued Medications Amiodarone HCl/Dextrose (Amiodarone 150mg / 100ml D5w) Confirm Administered Dose 150 mg IV .STK-MED ONE Stop: 09/26/22 08:07 Last Admin: 09/26/22 08:09 Dose: 150 mg Documented By: CRYSTAL Co-signed By: LISA Amiodarone HCl/Dextrose (Amiodarone 360mg / 200ml D5w) Confirm Administered Dose 360 mg IV .STK-MED ONE Stop: 09/26/22 08:09 Last Admin: 09/26/22 08:22 Dose: 360 mg Documented By: CRYSTAL Co-signed By: HUBERT Amiodarone HCl (Amiodarone Hcl Inj 50 Mg/Ml 3 Ml Vial) Confirm Administered Dose 150 mg IV .STK-MED ONE Stop: 09/26/22 08:05 Last Admin: 09/26/22 08:17 Dose: Not Given Documented By: LISA Apixaban (Apixaban 5 Mg Tablet) 5 mg PO ONE ONE Stop: 09/26/22 11:27 Last Admin: 09/26/22 11:57 Dose: 5 mg Documented By: MEAGAN Esmolol HCl (Esmolol Bolus From Bag) 1 mg IV ONE ONE Stop: 09/26/22 15:07 Last Admin: 09/26/22 18:07 Dose: Not Given Documented By: COLLEEN Etomidate (Etomidate 2 Mg/Ml 20 Ml Vial) Confirm Administered Dose 40 mg IV .STK-MED ONE Stop: 09/26/22 08:06 Last Admin: 09/26/22 09:56 Dose: Not Given Documented By: HUBERT Fentanyl Citrate (Fentanyl Citrate 100 Mcg/2 Ml Vial) Confirm Administered Dose 100 mcg .ROUTE .STK-MED ONE Stop: 09/26/22 08:05 Last Admin: 09/26/22 09:56 Dose: Not Given Documented By: HUBERT Amiodarone HCl/Dextrose (Nexterone / D5w) 360 mg in 200 mls @ 33.333 mls/hr IV NOW STA; Protocol Stop: 09/26/22 19:37 Last Infusion: 09/26/22 20:03 Dose: 0 mg/min, 0 mls/hr Documented By: TORITO Co-signed By: MARTY Infusion: 09/26/22 14:46 Dose: 1 mg/min, 33.3 mls/hr Documented By: COLLEEN Co-signed By: NASREEN Infusion: 09/26/22 14:26 Dose: 0 mg/min, 0 mls/hr Documented By: COLLEEN Co-signed By: JARETT Admin: 09/26/22 13:53 Dose: 1 mg/min, 33.3 mls/hr Documented By: COLLEEN Co-signed By: NASREEN Amiodarone HCl/Dextrose (Nexterone / D5w) 150 mg in 100 mls @ 600 mls/hr IV NOW STA Stop: 09/26/22 14:03 Last Infusion: 09/26/22 14:46 Dose: 0 mls/hr Documented By: COLLEEN Co-signed By: NASREEN Admin: 09/26/22 14:25 Dose: 600 mls/hr Documented By: CB Co-signed By: JARETT Parenteral Electrolytes (Normosol-R) 500 mls @ 999 mls/hr IV .Q31M ONE Stop: 09/26/22 14:24 Last Infusion: 09/26/22 14:53 Dose: 0 mls/hr Documented By: Admin: 09/26/22 14:26 Dose: 999 mls/hr Documented By: CB Potassium Chloride (K Jona / Wtr) 10 meq in 100 mls @ 100 mls/hr IV Q1H [facility] Stop: 09/26/22 16:14 Last Infusion: 09/26/22 18:07 Dose: 0 mls/hr Documented By: Admin: 09/26/22 15:47 Dose: 100 mls/hr Documented By: Infusion: 09/26/22 15:26 Dose: 100 mls/hr Documented By: Admin: 09/26/22 14:26 Dose: 100 mls/hr Documented By: CB Esmolol HCl (Brevibloc) 2,500 mg in 250 mls @ 33.15 mls/hr IV .Q7H33M [facility]; Protocol Stop: 10/26/22 15:14 Last Admin: 09/26/22 17:01 Dose: Not Given Documented By: CB Metoprolol Tartrate (Metoprolol Tartrate 1 Mg/Ml Vial) 5 mg IV NOW STA Stop: 09/26/22 08:26 Last Admin: 09/26/22 08:39 Dose: 5 mg Documented By: HUBERT Potassium Chloride (Potassium Chloride Crtab 20 Meq Tabcr) 20 meq PO NOW STA Stop: 09/26/22 14:13 Last Admin: 09/26/22 14:24 Dose: 20 meq Documented By: COLLEEN Critical Care Time I have personally about 70 minutes of critical care time in the direct management of this patient. This includes bedside care, interpretation of diagnostic studies, and testing, discussion with consultants, patient, and family members, and other required patient management activities. This 70 minutes is in excess of all separately billable procedures. Medical Decision Making Laboratory Data 09/26/22 07:45 09/26/22 07:45 Lab Results 09/26/22 09/26/22 09/26/22 Range/Units 07:45 07:45 07:45 WBC 5.72 (4.8-10.8) K/ul RBC 5.30 (4.63-6.08) M/uL Hgb 17.0 (14.0-18.0) g/dl Hct 46.7 (40.1-51.0) % MCV 88.1 (80.0-100.0) fL MCH 32.1 (25.0-34.0) pg MCHC 36.4 H (32.0-36.0) g/dL RDW Std Deviation 38.6 (36.4-46.3) fL RDW Coeff of Shaquille 12.0 (11.5-14.5) % Plt Count 145 (130-400) K/uL MPV 10.6 (9.4-12.4) fL Immature Gran % (Auto) 0.2 % Neut % (Auto) 55.7 % Lymph % (Auto) 33.7 % Cedar % (Auto) 10.0 % Eos % (Auto) 0.2 % Baso % (Auto) 0.2 % Neut # (Auto) 3.19 (1.4-6.5) K/uL Lymph # (Auto) 1.93 (1.2-3.4) K/uL Cedar # (Auto) 0.57 (0.24-0.82) K/uL Eos # (Auto) 0.01 (0-0.50) K/uL Baso # (Auto) 0.01 (0-0.2) K/uL Immature Gran # (Auto) 0.01 (0.00-0.02) K/uL PT 11.0 (9.0-12.0) Seconds INR 1.0 (0.9-1.1) APTT 29.9 (21.0-31.0) Seconds PTT Ratio 1.1 Sodium 136 (136-145) mmol/L Potassium 3.3 L (3.5-5.1) mmol/L Chloride 104 (98-107) mmol/L Carbon Dioxide 24 (21-32) mmol/L Anion Gap 8 (3-11) BUN 19 (6-23) mg/dl Creatinine 0.91 (0.6-1.4) mg/dl Est Cr Clr Drug Dosing 108.6 ml/min Est GFR ( Amer) 102.1 ml/min Est GFR (Non-Af Amer) 88.1 ml/min BUN/Creatinine Ratio 20.9 H (10-20) Glucose 121 H (70-99(Fasting)) mg/dl Calcium 8.2 L (8.5-10.1) mg/dl Magnesium 2.0 (1.7-2.4) mg/dl Total Bilirubin 0.8 (0.2-1.0) mg/dl AST 37 (13-39) U/L ALT 23 (7-52) U/L Alkaline Phosphatase 62 (34-104) U/L Troponin I High Sens 73.5 H* D (0-20) pg/ml Total Protein 6.8 (6.0-8.3) gm/dl Albumin 3.9 (3.4-5.0) gm/dl Globulin 2.9 (2.5-4.0) gm/dl Albumin/Globulin Ratio 1.3 (0.9-2) TSH (0.300-4.500) uIu/ml SARS-CoV-2, RNA, NAAT (NEGATIVE) 09/26/22 09/26/22 Range/Units 07:45 08:02 WBC (4.8-10.8) K/ul RBC (4.63-6.08) M/uL Hgb (14.0-18.0) g/dl Hct (40.1-51.0) % MCV (80.0-100.0) fL MCH (25.0-34.0) pg MCHC (32.0-36.0) g/dL RDW Std Deviation (36.4-46.3) fL RDW Coeff of Shaquille (11.5-14.5) % Plt Count (130-400) K/uL MPV (9.4-12.4) fL Immature Gran % (Auto) % Neut % (Auto) % Lymph % (Auto) % Cedar % (Auto) % Eos % (Auto) % Baso % (Auto) % Neut # (Auto) (1.4-6.5) K/uL Lymph # (Auto) (1.2-3.4) K/uL Cedar # (Auto) (0.24-0.82) K/uL Eos # (Auto) (0-0.50) K/uL Baso # (Auto) (0-0.2) K/uL Immature Gran # (Auto) (0.00-0.02) K/uL PT (9.0-12.0) Seconds INR (0.9-1.1) APTT (21.0-31.0) Seconds PTT Ratio Sodium (136-145) mmol/L Potassium (3.5-5.1) mmol/L Chloride (98-107) mmol/L Carbon Dioxide (21-32) mmol/L Anion Gap (3-11) BUN (6-23) mg/dl Creatinine (0.6-1.4) mg/dl Est Cr Clr Drug Dosing ml/min Est GFR ( Amer) ml/min Est GFR (Non-Af Amer) ml/min BUN/Creatinine Ratio (10-20) Glucose (70-99(Fasting)) mg/dl Calcium (8.5-10.1) mg/dl Magnesium (1.7-2.4) mg/dl Total Bilirubin (0.2-1.0) mg/dl AST (13-39) U/L ALT (7-52) U/L Alkaline Phosphatase (34-104) U/L Troponin I High Sens (0-20) pg/ml Total Protein (6.0-8.3) gm/dl Albumin (3.4-5.0) gm/dl Globulin (2.5-4.0) gm/dl Albumin/Globulin Ratio (0.9-2) TSH 0.697 (0.300-4.500) uIu/ml SARS-CoV-2, RNA, NAAT POSITIVE A* (NEGATIVE) Imaging Data Radiologist's Impression: Chest X-Ray 09/26/22 00:00 XR chest 1V portable CLINICAL HISTORY: Atrial fibrillation. COMPARISON STUDY: Chest radiograph September 24, 2022. FINDINGS: Old right-sided rib fractures are incidentally noted. Lung volumes are normal. Lungs are clear. There is no pneumothorax or pleural effusion. Cardiac size is normal. Mediastinal contours are normal. There is no evidence for pulmonary edema. IMPRESSION: No acute cardiopulmonary findings. ACT 112: Negative or not required by law. Electronically signed by: Anthony Silver M.D. 09/26/2022 10:21 AM [facility] Narrative Patient was seen and evaluated as above in room C10. Review was performed of triage nursing notes and vital signs. I did review pertinent previous visits and patient history. After obtaining a thorough history and physical examination the above work up was performed. Patient presents to us today for evaluation of irregular heart rate. He clinically appears well and nontoxic but does have a borderline hypotensive blood pressure and he is found to be tachycardic at an irregular rate. A. fib with RVR is noted. Options of care were discussed with the patient. While I was at the bedside evaluating him he did have an episode of what appeared to be V. tach/A. fib with aberrancy I discussed this with the attending physician that also present at the bedside. Please refer to his note regarding additional care of the patient. Patient was given IV fluid boluses as well as IV amiodarone. Patient responded well to these and was not felt to require emergent cardioversion. ED attending physician, Dr. Garcia also spoke to cardiology. Decision was made to also provide a dose of Lopressor. Patient did have an episode where he seemed to convert back to normal sinus rhythm however it appeared that he then went back into A. fib with RVR. I do believe that further evaluation and management is warranted in the inpatient setting. Patient's EKG here in the emergency department revealed A. fib with RVR at a rate of 196 bpm. QTc 473. QRS 84. Laboratory studies reveal no leukocytosis or concerning anemia. Coags are normal. Mild hypokalemia 3.3. No evidence of kidney failure. Troponin returned elevated at 73.5. TSH reveals euthyroid state. Urinalysis does not suggest infection. COVID testing positive. Case discussed with the hospitalist service. Please refer to further documentation regarding his stay. An order was placed for continuous cardiac monitoring. The monitor shows a rate of 190 with atrial fibrillation. GCS: 15 In the evaluation and treatment of this patient the following differential diagnoses were entertained: Electrolyte disturbance, atrial fibrillation, ventricular tachycardia, ischemia, PE, infection, among others. Impression & Plan Atrial fibrillation with rapid ventricular response, Elevated troponin, Hypokalemia, COVID Discharge Plan Visit Data Chief Complaint: Chest Pain Stated Complaint: CHEST PAIN ED Provider: Tom Garcia ED Midlevel Provider: Harsh Rhodes Discharge Problem: Atrial fibrillation with rapid ventricular response, Elevated troponin, Hypokalemia, COVID Patient Disposition: Admitted As Inpatient Condition: Good Discharge Instructions Interventions: ED Discharge Assessment Last Done: 09/26/22 13:00 Addendum September 26, 2022 20:40 The patient is a 67-year-old gentleman with a past medical history of atrial fibrillation which was diagnosed in the setting of recent COVID-19 infection when he was seen in emergency department on 09/24 and noted to be in atrial fibrillation with RVR. The patient had been diagnosed with atrial fibrillation remotely this had not recurred and he was not on medications. He was noted to be hypotensive not responding to medications and so cardioversion was performed and subsequently admitted for further management. He had a formal echo yesterday that demonstrated normal EF without regional wall motion abnormalities. Moderate concentric left ventricular hypertrophy was seen. A small pericardial effusion without evidence of tamponade physiology was also noted. During his hospitalization was initially treated with heparin and transitioned to Eliquis. 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 He was feeling well up until this morning when he began to feel his heart racing. He reports he did feel intermittently lightheaded but this resolved. Upon arrival to emergency department he was tachycardic in atrial fibrillation with RVR in the 100s but then abruptly had acute onset of worsening of symptoms with heart rate in the 180s-200s and a wide-complex tachycardia. The patient was noted to be hypotensive with blood pressure 80s/60s though mentating normally. He did respond to IV fluid hydration/preload and so repeat cardioversion was deferred. Given the patient's wide-complex tachycardia he was loaded with 150 mg of amiodarone and drip was started. Shortly after infusion of the amiodarone drip and additional IV fluid hydration for a total of 2 L the patient was noted to briefly cardiovert to normal sinus rhythm in the 70s though this only lasted approximately 2 minutes. Though upon returning to atrial fibrillation with RVR his rate was now more consistently in the 140-160 range with narrow complex. His blood pressures initially remained stable following amiodarone and IV fluid hydration. I did review the case with [facility] cardiology Dr. James, who agreed with the management thus far. While Vtach was initially considered given his transient conversion to NSR then to afib, Afib with aberrancy is more likely suspected at this time. Appreciate recommendations for administration of Lopressor needed for additional rate control. Patient was subsequently admitted to the hospital service for further m anagement. Of note, subsequently I was alerted by the patient's RN that his blood pressure was again drifting down to the 90s/70s. He denied feeling presyncopal or lightheaded. His rate remained in atrial fibrillation in the 140s-160s. I did perform a limited bedside cardiac ultrasound with limi germán/subptimal views. The patient's previously described pericardial effusion was seen, however early tamponade physiology was difficult to exclude given the clinical context. The patient was given 500 cc of lactated Ringer's and blood pressure did respond to the 100s/70s. I then discussed the case with the patient's primary coffee break attendant Dr. Morrow. While the patient had a formal echo just yesterday that did not demonstrate evidence of tamponade physiology, given his labile hemodynamics appreciate recommendations for ICU admission and stat echo. Given the patient was cardioverted on his last admission and again returned to A. fib will defer cardioversion again unless the patient develops refractory hypotension. Continue Amiodarone. Recommendations were relayed to Dr. Dr. Canales, [facility] hospitalist, who ordered STAT echo and will continue further management. -- I was consulted by the Advanced Practice Provider.I performed a substantive portion of the visit.This includes aspects of the HPI, MDM, diagnostic interpretations, and disposition/plan. I discussed the case with the FRANCO, e xamined the patient, and agree with the findings and plan as documented in FRANCO Bamat's note.
[2022-09-26 07:56] LABS: Basophils # (auto) 0.01 K/uL (0-0.2); Basophils % (auto) 0.2 %; Eosinophils # (auto) 0.01 K/uL (0-0.50); Eosinophils % (auto) 0.2 %; Hematocrit (blood only) 46.7 % (40.1-51.0); Immature Granulocytes # (auto) 0.01 K/uL (0.00-0.02); Immature Granulocytes % (auto) 0.2 %; Lymphocytes # (auto) 1.93 K/uL (1.2-3.4); Lymphocytes % (auto) 33.7 %; Mean Corpuscular Hemoglobin 32.1 pg (25.0-34.0); Mean Corpuscular Hgb Conc 36.4 g/dL (32.0-36.0); Mean Corpuscular Volume 88.1 fL (80.0-100.0); Mean Platelet Volume 10.6 fL (9.4-12.4); Monocytes # (auto) 0.57 K/uL (0.24-0.82); Neutrophils # (auto) 3.19 K/uL (1.4-6.5); Neutrophils % (auto) 55.7 %; Platelet Count 145 K/uL (130-400); RDW Standard Deviation 38.6 fL (36.4-46.3); White Blood Count 5.72 K/ul (4.8-10.8)
[2022-09-26] MEDS ORDERED: AMIODARONE HCL INJ 50 MG/ML 3 ML VIAL IV ONE (08:04)
[2022-09-26] MEDS ORDERED: fentaNYL citrate 100 MCG/2 ML VIAL ONE (08:04)
[2022-09-26] MEDS ORDERED: ETOMIDATE 2 MG/ML 20 ML VIAL IV ONE (08:05)
[2022-09-26] MEDS ORDERED: AMIODARONE 150MG / 100ML D5W IV ONE (08:06)
[2022-09-26] MEDS ORDERED: AMIODARONE 360MG / 200ML D5W IV ONE (08:08)
[2022-09-26 08:17] LABS: Albumin Globulin Ratio 1.3 (0.9-2); Albumin Level 3.9 gm/dl (3.4-5.0); BUN Creatinine Ratio 20.9 (10-20); Bilirubin,Total 0.8 mg/dl (0.2-1.0); Calcium 8.2 mg/dl (8.5-10.1); Creatinine Clr Calc Pharmacy 108.6 ml/min; Est GFR (African American) 102.1 ml/min; Est GFR (Non-African American) 88.1 ml/min; Globulin 2.9 gm/dl (2.5-4.0); Potassium 3.3 mmol/L (3.5-5.1); Total Protein 6.8 gm/dl (6.0-8.3)
[2022-09-26] MEDS ORDERED: METOPROLOL TARTRATE 1 MG/ML VIAL IV STA (08:25)
[2022-09-26 08:32] LABS: Partial Thromboplastin Ratio 1.1; Partial Thromboplastin Time 29.9 Seconds (21.0-31.0)
[2022-09-26 08:33] LABS: Troponin I High Sensitivity 73.5 pg/ml (0-20)
--- NOTE | 2022-09-26 09:40 | Cardiology Consultation ---
Date of Consultation September 26, 2022 Assessment & Plan (1) Atrial fibrillation with RVR: Plan Impression: 1. Afib RVR in the setting of COVID positive status 2. Echocardiogram 09/25 demonstrating small increase in small pericardial effusion. Normal LVF with EF of 65% 3. Hypotension Mr. Karimi continues in a rapid afib. His blood pressures have been soft. He is not sob, no angina. He has had a mild elevation in his high sensitivity troponin during his admission on 09/24 and his troponin appears to be trending down. Dr. Lepe reviewed his chart and spoke with ED. Given ongoing rapid rates with soft pressures, recommend ICU. Continue amiodarone. He will need to have his apixaban resumed this morning. He did get a dose last night. I will order a one time dose for now as it appears to have been ordered to start when he gets to the floor. If his heart rate does not come down, could add esmolol and possibly luis- synephrine to support is pressures if necessary. Electrical cardioversion is less likely to be successful as it did not hold for the last attempt, but he may require another attempt if he becomes unstable. He had a mild pericardial effusion on his echocardiogram with only mild increase on repeat today. No sign of tamponade. History of Present Illness History of Present Illness Mr. Karimi was initially admitted to [facility] on 09/24 after suffering from stomach pain, reduced appetite, racing heart rate and hot flashes. He was found to be in Afib RVR and COVID positive. He had only had one previous episode of afib in 2017 which was electrically cardioverted. In the ED Lopressor was not able to control his heart rate and he was hypotensive so he was emergently electrically cardioverted. He had three shocks total. He was placed on an IV heparin drip. He was discharged in SR with NOAC. Today he had further racing heart rate and mild lightheadedness. He presented to the ED and was found to again be in AFib with RVR. No chest pain. No sob. He did take a dose of Eliquis last night but has not had any blood thinner yet this morning. No edema, no orthopnea. Allergies Allergy/AdvReac Type Severity Reaction Status Date / Time No Known Allergies Allergy + Unverified 01/25/20 08:23 Home Medications Medication Instructions Recorded Confirmed Type lisinopril 10 mg tablet (Zestril) 10 mg PO QAM #0 tabs 11/05/17 09/24/22 History metoprolol succinate 25 mg 25 mg PO DAILY 09/24/22 09/24/22 History tablet,extended release 24 hr rosuvastatin 10 mg tablet 25 mg PO DAILY 09/24/22 09/24/22 History apixaban 5 mg tablet (Eliquis) 5 mg PO BID 90 days #180 tabs 09/25/22 Rx Patient History Medical History Dyslipidemia HTN (hypertension) Paroxysmal atrial fibrillation Social History Smoking Status: Never smoker Hx Alcohol Use: No Hx Substance Use: No Preferred Language: Spanish Communication Ability: Effective 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 Results & Data ([facility]) Vital Signs (Past 12 Hours) Vital Signs Temp Pulse Pulse Resp BP BP Pulse Ox 09/26/22 09:30 152 H 17 95 09/26/22 09:30 102/79 09/26/22 09:25 147 H 15 96 09/26/22 09:25 95/69 L 09/26/22 09:20 147 H 16 97 09/26/22 09:20 106/80 09/26/22 09:15 155 H 7 L 98 09/26/22 09:15 88/60 L 09/26/22 09:10 144 H 11 L 96 09/26/22 09:10 102/73 09/26/22 09:05 148 H 13 94 09/26/22 09:05 92/70 L 09/26/22 09:00 152 H 18 96 09/26/22 09:00 92/64 L 09/26/22 08:56 116/79 09/26/22 08:56 153 H 16 92 09/26/22 08:55 146 H 21 94 09/26/22 08:50 147 H 18 96 09/26/22 08:50 101/71 09/26/22 08:46 129/71 09/26/22 08:46 142 H 13 96 09/26/22 08:45 146 H 11 L 95 09/26/22 08:40 146 H 10 L 97 09/26/22 08:40 101/71 09/26/22 08:35 179 H 12 98 09/26/22 08:35 102/70 09/26/22 08:30 161 H 14 95 09/26/22 08:30 106/78 09/26/22 08:25 166 H 19 95 09/26/22 08:25 124/82 09/26/22 08:20 162 H 20 97 09/26/22 08:20 122/82 09/26/22 08:15 179 H 18 94 09/26/22 08:15 112/75 09/26/22 08:10 180 H 13 96 09/26/22 08:10 104/71 09/26/22 08:05 190 H 14 97 09/26/22 08:05 119/82 09/26/22 08:04 119/75 09/26/22 08:04 201 H 12 95 09/26/22 08:01 201 H 16 09/26/22 08:01 97/72 L 09/26/22 08:00 205 H 14 09/26/22 07:55 200 H 15 09/26/22 07:52 178 H 13 94 09/26/22 08:39 160 H 102/70 09/26/22 07:59 180 H 20 91/67 L 98 09/26/22 07:32 36.5 C 104 H 18 88/66 L 96 O2 Del Method 09/26/22 09:30 09/26/22 09:30 09/26/22 09:25 09/26/22 09:25 09/26/22 09:20 09/26/22 09:20 09/26/22 09:15 09/26/22 09:15 09/26/22 09:10 09/26/22 09:10 09/26/22 09:05 09/26/22 09:05 09/26/22 09:00 09/26/22 09:00 09/26/22 08:56 09/26/22 08:56 09/26/22 08:55 09/26/22 08:50 09/26/22 08:50 09/26/22 08:46 09/26/22 08:46 09/26/22 08:45 09/26/22 08:40 09/26/22 08:40 09/26/22 08:35 09/26/22 08:35 09/26/22 08:30 09/26/22 08:30 09/26/22 08:25 09/26/22 08:25 09/26/22 08:20 09/26/22 08:20 09/26/22 08:15 09/26/22 08:15 09/26/22 08:10 09/26/22 08:10 09/26/22 08:05 09/26/22 08:05 09/26/22 08:04 09/26/22 08:04 09/26/22 08:01 09/26/22 08:01 09/26/22 08:00 09/26/22 07:55 09/26/22 07:52 09/26/22 08:39 09/26/22 07:59 Room Air 09/26/22 07:32 Room Air
--- NOTE | 2022-09-26 10:23 | XRay Report ---
XR chest 1V portable CLINICAL HISTORY: Atrial fibrillation. COMPARISON STUDY: Chest radiograph September 24, 2022. FINDINGS: Old right-sided rib fractures are incidentally noted. Lung volumes are normal. Lungs are cl ear. There is no pneumothorax or pleural effusion. Cardiac size is normal. Mediastinal contours are n ormal. There is no evidence for pulmonary edema. IMPRESSION: No acute cardiopulmonary findings. ACT 112: Negative or not required by law. Electronically signed by: Anthony Silver M.D. 09/26/2022 10:21 AM
[2022-09-26 11:03] LABS: Appearance Urine Clear (Clear); Bacteria Urine Automated Negative (Negative); Bilirubin Urine Negative (Negative); Blood Urine 1+ (Negative); Cast Urine Automated 0 /lpf (0-5); Color Urine Yellow; Epithelial Cell Urine Auto 0-5 /lpf (0-5); Glucose Urine UA Negative (Negative); Ketones Urine 1+ (Negative); Leukocyte Esterase Urine Negative (Negative); Nitrite Urine Negative (Negative); Protein Urine Negative (Negative); RBC Urine Automated 0-4 /hpf (0-4); Specific Gravity Urine 1.007 (1.000-1.030); Urobilinogen Urine Negative (Negative); WBC Urine Automated 0 /hpf (0-5); pH Urine 6.5 (4.5-7.5)
[2022-09-26] MEDS ORDERED: APIXABAN 5 MG TABLET PO ONE (11:26)
--- NOTE | 2022-09-26 11:28 | XCELERA ---
[id number]
--- NOTE | 2022-09-26 11:43 | History & Physical Report ---
Date of Service September 26, 2022 Assessment & Plan (1) Paroxysmal atrial fibrillation: Plan: Afib RVR s/p Electrical Cardioversion Discharged home after stabilization on Apixaban and metoprolol, but comes back after palpitations and found to be in rapid ventricular response -Started on Amiodarone -Cardiology on consult -Continue Eliquis Echo shows mild pericardial effusion, normal EF (2) Pericardial effusion: Plan: -Seen on ECHO -Will obtain stat ECHO to r/o tamponade in view of soft BP (3) Elevated troponin: Plan: -Most likely due to demand ischemia on account of rapid ventricular rate No history of ND/CHF Troponin trend (4) COVID: Plan: Nonvaccinated No hypoxia, lungs are clear without wheezes/rales No steroids or remdesivir indicated at this time Is anticoagulated for A. fib above continue supportive care at this time, no additional treatment indicated. (5) HTN (hypertension): Plan: -Soft BP -Lisinopril held for relative hypotension after IV metoprolol as above, resume tomorrow if normotensive - Continue Metoprolol as noted (6) Obesity (BMI 30.0-34.9): Plan: adviced on diet and exercise Plan DVT PPx: On Apixaban Diet: HHD Code Status: Full Disposition: icu History of Present Illness Primary Care Provider: Nathanael Lepe DO Is a 67-year-old male, who came back to the hospital today when he noticed palpitations at home 6 AM. Of note he was discharged the day prior after he was diagnosed with atrial fibrillation with RVR. During the last hospital visit he was successfully cardioverted and his heart rate was maintained on metoprolol and was discharged home on apixaban. However he comes back to the hospital today after he complained of irregular heartbeat and palpitations. In the emergency department, he was started on amiodarone and cardiology was consulted. However while in the emergency department, it was noted that his blood pressure kept dropping and cardiology suggested admission to ICU. Of note during his last hospital admission just a couple of days ago, a 2D echo was done which showed evidence of a mild pericardial effusion. Also of note, he tested positive for COVID-19 during his last hospital admission. Allergies Allergy/AdvReac Type Severity Reaction Status Date / Time No Known Allergies Allergy + Unverified 01/25/20 08:23 Home Medications Medication Instructions Recorded Confirmed Type lisinopril 10 mg tablet (Zestril) 10 mg PO QAM #0 tabs 11/05/17 09/24/22 History metoprolol succinate 25 mg 25 mg PO DAILY 09/24/22 09/24/22 History tablet,extended release 24 hr rosuvastatin 10 mg tablet 25 mg PO DAILY 09/24/22 09/24/22 History apixaban 5 mg tablet (Eliquis) 5 mg PO BID 90 days #180 tabs 09/25/22 Rx Past Med/Surg History Medical History Dyslipidemia HTN (hypertension) Paroxysmal atrial fibrillation Social History Smoking Status: Never smoker Hx Alcohol Use: No Hx Substance Use: No Preferred Language: Kazakh Communication Ability: Effective Transmission Calibration Engineer Required: No Beliefs That Will Affect Care: None Current Living Situation: Spouse Feels Safe at Home: Yes Assistive Devices: None Review of Systems Review of Systems: All systems reviewed are negative, apart from the ones contained in the history. Physical Exam Physical Exam: The patient is awake, alert and oriented 3, well developed and well nourished, normocephalic and atraumatic, lying in bed and in no acute distress. HEENT--PERRL, EOMI, mucous membranes and oropharynx mildly dry Neck--supple. No JVD. No bruits. Thyroid normal, trachea midline, no adenopathy. Heart--normal S1 and S2. No murmurs, rubs or gallops. Lungs--clear bilaterally, no respiratory distress, no accessory muscle use. Abdomen--normal bowel sounds and soft. Mild epigastric and left sided abdominal pain Extremities--no cyanosis or clubbing. No edema. Dermatologic--normal skin turgor, normal color, no abnormal lymph nodes, no rash. Neurologic--cranial nerves II through XII grossly intact. Rheumatologic--normal range of motion. Psychiatric--normal affect. Results & Data Results & Data ([facility]) Vital Signs (Past 12 Hours) Vital Signs Temp Pulse Pulse Resp BP BP Pulse Ox 09/26/22 10:26 157 H 12 97 09/26/22 10:26 106/89 09/26/22 10:20 155 H 15 96 09/26/22 10:20 101/85 09/26/22 10:15 96/73 L 09/26/22 10:15 150 H 14 97 09/26/22 10:10 150 H 15 95 09/26/22 10:10 94/74 L 09/26/22 10:06 154 H 9 L 96 09/26/22 10:06 91/77 L 09/26/22 10:00 150 H 12 95 09/26/22 10:00 98/72 L 09/26/22 09:55 101/73 09/26/22 09:55 145 H 9 L 97 09/26/22 09:50 150 H 11 L 97 09/26/22 09:50 109/84 09/26/22 09:47 157 H 21 96 09/26/22 09:47 116/85 09/26/22 09:40 141 H 17 97 09/26/22 09:40 131/88 09/26/22 09:35 97/83 L 09/26/22 09:35 142 H 16 91 09/26/22 09:30 152 H 17 95 09/26/22 09:30 102/79 09/26/22 09:25 147 H 15 96 09/26/22 09:25 95/69 L 09/26/22 09:20 147 H 16 97 09/26/22 09:20 106/80 09/26/22 09:15 155 H 7 L 98 09/26/22 09:15 88/60 L 09/26/22 09:10 144 H 11 L 96 09/26/22 09:10 102/73 09/26/22 09:05 148 H 13 94 09/26/22 09:05 92/70 L 09/26/22 09:00 152 H 18 96 09/26/22 09:00 92/64 L 09/26/22 08:56 116/79 09/26/22 08:56 153 H 16 92 09/26/22 08:55 146 H 21 94 09/26/22 08:50 147 H 18 96 09/26/22 08:50 101/71 09/26/22 08:46 129/71 09/26/22 08:46 142 H 13 96 09/26/22 08:45 146 H 11 L 95 09/26/22 08:40 146 H 10 L 97 09/26/22 08:40 101/71 09/26/22 08:35 179 H 12 98 09/26/22 08:35 102/70 09/26/22 08:30 161 H 14 95 09/26/22 08:30 106/78 09/26/22 08:25 166 H 19 95 09/26/22 08:25 124/82 09/26/22 08:20 162 H 20 97 09/26/22 08:20 122/82 09/26/22 08:15 179 H 18 94 09/26/22 08:15 112/75 09/26/22 08:10 180 H 13 96 09/26/22 08:10 104/71 09/26/22 08:05 190 H 14 97 09/26/22 08:05 119/82 09/26/22 08:04 119/75 09/26/22 08:04 201 H 12 95 09/26/22 08:01 201 H 16 09/26/22 08:01 97/72 L 09/26/22 08:00 205 H 14 09/26/22 07:55 200 H 15 09/26/22 07:52 178 H 13 94 09/26/22 08:39 160 H 102/70 09/26/22 07:59 180 H 20 91/67 L 98 09/26/22 07:32 97.7 F 104 H 18 88/66 L 96 O2 Del Method 09/26/22 10:26 09/26/22 10:26 09/26/22 10:20 09/26/22 10:20 09/26/22 10:15 09/26/22 10:15 09/26/22 10:10 09/26/22 10:10 09/26/22 10:06 09/26/22 10:06 09/26/22 10:00 09/26/22 10:00 09/26/22 09:55 09/26/22 09:55 09/26/22 09:50 09/26/22 09:50 09/26/22 09:47 09/26/22 09:47 09/26/22 09:40 09/26/22 09:40 09/26/22 09:35 09/26/22 09:35 09/26/22 09:30 09/26/22 09:30 09/26/22 09:25 09/26/22 09:25 09/26/22 09:20 09/26/22 09:20 09/26/22 09:15 09/26/22 09:15 09/26/22 09:10 09/26/22 09:10 09/26/22 09:05 09/26/22 09:05 09/26/22 09:00 09/26/22 09:00 09/26/22 08:56 09/26/22 08:56 09/26/22 08:55 09/26/22 08:50 09/26/22 08:50 09/26/22 08:46 09/26/22 08:46 09/26/22 08:45 09/26/22 08:40 09/26/22 08:40 09/26/22 08:35 09/26/22 08:35 09/26/22 08:30 09/26/22 08:30 09/26/22 08:25 09/26/22 08:25 09/26/22 08:20 09/26/22 08:20 09/26/22 08:15 09/26/22 08:15 09/26/22 08:10 09/26/22 08:10 09/26/22 08:05 09/26/22 08:05 09/26/22 08:04 09/26/22 08:04 09/26/22 08:01 09/26/22 08:01 09/26/22 08:00 09/26/22 07:55 09/26/22 07:52 09/26/22 08:39 09/26/22 07:59 Room Air 09/26/22 07:32 Room Air PG Care Time/CCT Total # of Minutes Spent Total Time Spent with Patient: Total time spent is greater than 50% in coordination of care (as documented) at patient's floor/unit and/or counseling patient: Coding Level of Care Code 82062 INT INP/OBS CARE 3/75MIN Diagnoses Paroxysmal atrial fibrillation I48.0 Pericardial effusion I31.39 Elevated troponin R77.8 COVID U07.1 HTN (hypertension) I10 Obesity (BMI 30.0-34.9) E66.9 Time Spent (min) 35
[2022-09-26] MEDS ORDERED: ONDANSETRON INJ 2 MG/ML 2 ML VIAL IV PRN (13:06)
[2022-09-26] MEDS ORDERED: ACETAMINOPHEN 325 MG TAB PO PRN (13:06)
[2022-09-26] MEDS ORDERED: METOPROLOL SUCC 25MG EXT REL TAB PO SCH (13:06)
[2022-09-26] MEDS ORDERED: AMIODARONE / D5W 360 MG/200 ML BAG IV STA (13:38)
[2022-09-26] MEDS ORDERED: 0.2 MICRON FILTER SET 1 EACH IV ONE ×3 (13:38→19:41)
[2022-09-26] MEDS ORDERED: NORMOSOL-R 500 ML IV ONE (13:54)
[2022-09-26] MEDS ORDERED: AMIODARONE / D5W 150 MG/100 ML BAG IV STA (13:54)
[2022-09-26] MEDS: lisinopril 10 MG TAB PO SCH (14:07)
[2022-09-26] MEDS ORDERED: POTASSIUM CHLORIDE CRTAB 20 MEQ TABCR PO STA (14:12)
[2022-09-26] MEDS: ROSUVASTATIN CALCIUM 10 MG TAB PO SCH (14:25)
[2022-09-26] MEDS: POTASSIUM CHLORIDE / WTR 10 MEQ/100 ML PLCT IV SCH ×2 (14:26→15:47)
--- NOTE | 2022-09-26 14:28 | Critical Care Consultation ---
Date of Consultation September 26, 2022 Assessment & Plan (1) Atrial fibrillation with RVR: Reason Critically Ill: 67-year-old male presenting with A. fib with RVR after recently responding to electrocardioversion now with heart rates in the 160s. Requiring close monitoring and ongoing intervention for that with RVR Soft pressures. NEURO - * CAM ICU: NEGATIVE CARDIAC/VASCULAR - * A. fib with RVR: * Initially cardioverted electrically on 09/24. Returns today with sensation of palpitations and rapid heart rate. Received metoprolol with conversion back to normal sinus rhythm. Returned to A. fib. Received amiodarone bolus and drip which did work temporarily for cardioversion as well. Unfortunately, the patient converted back to A. fib with RVR. Rates were high in the 160s to 170s. * Blood pressures have remained soft which will narrow down treatment options. * Will rebolus 150 mg amiodarone and provide 500 mL Normosol bolus. * Will add potassium supplementation. Patient would benefit from a potassium level greater than 4 and magnesium level greater than 2 * If the patient's heart rate does not improve, considering esmolol as he has been on beta-blockade's in the outpatient setting and may benefit from this. * Continue with apixaban. * Hold home antihypertensive medications. * NSTEMI: * Likely represent demand ischemia in the tachycardic, A. fib patient. * Trend troponins. * Pericardial effusion: * Slight increase from prior. * Less likely contributing significantly at this time. * Monitor on telemetry. RESPIRATORY - * No h/o pulmonary disease. * Saturating well on room air. GI/NUTRITION - * NPO pending possible need for cardioversion. RENAL/LYTES - * Hypokalemia: * Will replace as patient would benefit from potassium level greater than 4 and magnesium level >2. - * Strict I&Os. ENDO - * No h/o DM or thyroid Dz * BSGs per unit protocol. ISS --> gtt per unit policy. HEME - * Stable H&H ID - * No concerns for infectious contribution at this time. LINES/IV ACCESS - * PIVs x2 DVT PROPHYLAXIS - * Continue Eliquis * SCDs I have personally spent 55 minutes of critical care time in the direct management of this patient. This is a life/limb threatening event. This includes time spent evaluating patient, direct bedside care, chart review, placing orders, interpretation of diagnostic studies, discussion with consultants, patient, and family members, as well as other required patient management activities. This time is exclusive of all separately billable procedures, and teaching time and separate from and in addition to any other critical care service time. Thank you for allowing us to participate in the care of this patient. Please refer to my attending physician's documentation for any further recommendations. (2) HTN (hypertension): (3) Hypokalemia: (4) COVID: (5) Dyslipidemia: Supervising Physician Co-Signing Physician Notes Patient seen and examined. EMR reviewed. Discussed with Dr. James as well as bedside critical care nurse. Discussed with critical care FRANCO and agree with assessment plan as noted. Patient was admitted with atrial fibrillation with rapid ventricular response. He received an additional dose of amiodarone IV which resulted in conversion to normal sinus rhythm. He is already anticoagulated. There was concern about tamponade. Discussed with Dr. James. There is a small loculated pericardial effusion but no tamponade physiology. His blood pressure is acceptable without evidence of pulsus paradoxus or hemodynamic instability. Follow-up echocardiogram in the next 24 hours. Anticipate the patient can likely be dismissed from the ICU to the telemetry service or potentially home. Ultimate disposition per cardiology. Anticipate he can likely go to the floor in the a.m. if he remains rate controlled. History of Present Illness Attending Physician: Florina Canales MD History of Present Illness Patient is a 67-year-old male with a significant past medical history of hypertension and dyslipidemia who initially presented to the emergency department of this institution on 09/24 and found to be in rapid A. fib. Initially failed chemical cardioversion and underwent electrocardioversion x3 on 09/24 with return to sinus rhythm. He was admitted here and monitored closely. He was placed on Eliquis and his metoprolol was increased. Otherwise, he reports that he had been feeling well, but this morning he developed palpitations with associated lightheadedness. His states that he did nearly pass out. He received amiodarone as well as metoprolol in the emergency department. He did briefly convert to sinus rhythm, however this was only short-lived. He had a repeat echocardiogram today which demonstrates slight increase in size of pericardial effusion from prior. Otherwise, the patient remains hypokalemic. Upon evaluation, the patient complains of palpitation sensation. Remarkably, despite elevated heart rates, the patient denies complaints of dizziness, lightheadedness, chest pain, shortness of breath, pleuritic pain, nausea, vomiting, or diaphoresis. Allergies Allergy/AdvReac Type Severity Reaction Status Date / Time No Known Allergies Allergy + Unverified 01/25/20 08:23 Home Medications Medication Instructions Recorded Confirmed Type lisinopril 10 mg tablet (Zestril) 10 mg PO QAM #0 tabs 11/05/17 09/24/22 History metoprolol succinate 25 mg 25 mg PO DAILY 09/24/22 09/24/22 History tablet,extended release 24 hr rosuvastatin 10 mg tablet 25 mg PO DAILY 09/24/22 09/24/22 History apixaban 5 mg tablet (Eliquis) 5 mg PO BID 90 days #180 tabs 09/25/22 Rx Patient History Medical History Dyslipidemia HTN (hypertension) Paroxysmal atrial fibrillation Social History Smoking Status: Never smoker Hx Alcohol Use: No Hx Substance Use: No Preferred Language: Niuean Communication Ability: Effective Director Paid Media Required: No Beliefs That Will Affect Care: None Current Living Situation: Spouse Feels Safe at Home: Yes Assistive Devices: None Review of Systems Review of Systems: A complete 10 point review of systems was reviewed with the patient with pertinent positives and negatives as per history of present illness. All else were negative. Physical Exam Physical Exam: VITAL SIGNS - Vital signs and nursing notes were reviewed. GENERAL - 67-year-old male appearing his stated age who is in no acute distress. Communicates well with provider and answers questions appropriately. HEAD - NC/AT. EYES - PERRL with EOMI bilaterally. Sclera anicteric. MOUTH/OROPHARYNX - Without perioral cyanosis. Buccal mucosa pink and moist. NECK - Neck with FROM. LUNGS - Chest wall symmetric without accessory muscle use, intercostals retractions, or central cyanosis. Normal vesicular breath sounds CTA B/L. No wheezes, rales, or rhonchi appreciated. CARDIAC - Irregularly irregularly irregular rhythm. No murmur, rubs, or gallops appreciated. ABDOMEN - Abdominal contour flat without pulsations or visible masses. BS normoactive all four quadrants. No tenderness, palpable masses, hepatosplenomegaly, or ascites noted. EXTREMITIES - No clubbing or peripheral cyanosis. No pretibial edema present. +3/5 radial and dorsalis pedis pulses palpated throughout. +5/5 strength noted in UE/LE bilaterally. NEUROLOGIC - Cranial nerves II through XII grossly intact. Sensory intact to light touch throughout. PSYCH - A&Ox3 and cooperates fully with examiner. Pt is very pleasant and interacts well with examiner. Results & Data Results & Data ([facility]) Vital Signs (Past 12 Hours) Vital Signs Temp Pulse Pulse Resp BP BP Pulse Ox 09/26/22 14:00 153 H 21 96 09/26/22 13:57 153 H 18 93 09/26/22 13:57 96/79 L 09/26/22 13:45 167 H 19 97 09/26/22 13:41 170 H 12 97 09/26/22 13:41 95/71 L 09/26/22 13:30 154 H 18 96 09/26/22 13:23 166 H 18 94 09/26/22 13:23 109/70 09/26/22 13:15 165 H 20 95 09/26/22 13:00 154 H 14 96 09/26/22 12:53 104/80 09/26/22 12:53 163 H 20 98 09/26/22 12:35 115/76 09/26/22 12:35 157 H 16 09/26/22 12:30 163 H 15 09/26/22 12:30 125/73 09/26/22 13:13 37.3 C 09/26/22 12:01 120/79 09/26/22 12:01 142 H 16 09/26/22 12:00 152 H 21 09/26/22 11:55 114/62 09/26/22 11:55 158 H 16 09/26/22 11:50 158 H 09/26/22 11:50 98/69 L 09/26/22 11:45 152 H 17 09/26/22 11:45 95/78 L 09/26/22 11:40 153 H 16 09/26/22 11:40 101/74 09/26/22 11:35 93/69 L 09/26/22 11:35 143 H 17 09/26/22 11:30 152 H 16 09/26/22 11:30 101/61 09/26/22 11:26 148 H 18 09/26/22 11:26 110/60 09/26/22 11:20 144 H 16 09/26/22 11:20 108/71 09/26/22 11:15 162 H 09/26/22 11:15 113/62 09/26/22 11:10 155 H 09/26/22 11:10 96/75 L 09/26/22 11:05 98/61 L 09/26/22 11:05 156 H 09/26/22 11:00 152 H 14 09/26/22 11:00 119/73 09/26/22 10:56 163 H 17 09/26/22 10:56 106/75 09/26/22 10:51 169 H 14 09/26/22 10:51 92/73 L 09/26/22 10:50 159 H 09/26/22 10:45 146 H 09/26/22 10:45 122/79 09/26/22 10:40 157 H 09/26/22 10:40 97/70 L 09/26/22 10:36 151 H 17 09/26/22 10:36 111/67 09/26/22 10:26 157 H 12 97 09/26/22 10:26 106/89 09/26/22 10:20 155 H 15 96 09/26/22 10:20 101/85 09/26/22 10:15 96/73 L 09/26/22 10:15 150 H 14 97 09/26/22 10:10 150 H 15 95 09/26/22 10:10 94/74 L 09/26/22 10:06 154 H 9 L 96 09/26/22 10:06 91/77 L 09/26/22 10:00 150 H 12 95 09/26/22 10:00 98/72 L 09/26/22 09:55 101/73 09/26/22 09:55 145 H 9 L 97 09/26/22 09:50 150 H 11 L 97 09/26/22 09:50 109/84 09/26/22 09:47 157 H 21 96 09/26/22 09:47 116/85 09/26/22 09:40 141 H 17 97 09/26/22 09:40 131/88 09/26/22 09:35 97/83 L 09/26/22 09:35 142 H 16 91 09/26/22 09:30 152 H 17 95 09/26/22 09:30 102/79 09/26/22 09:25 147 H 15 96 09/26/22 09:25 95/69 L 09/26/22 09:20 147 H 16 97 09/26/22 09:20 106/80 09/26/22 09:15 155 H 7 L 98 09/26/22 09:15 88/60 L 09/26/22 09:10 144 H 11 L 96 09/26/22 09:10 102/73 09/26/22 09:05 148 H 13 94 09/26/22 09:05 92/70 L 09/26/22 09:00 152 H 18 96 09/26/22 09:00 92/64 L 09/26/22 08:56 116/79 09/26/22 08:56 153 H 16 92 09/26/22 08:55 146 H 21 94 09/26/22 08:50 147 H 18 96 09/26/22 08:50 101/71 09/26/22 08:46 129/71 09/26/22 08:46 142 H 13 96 09/26/22 08:45 146 H 11 L 95 09/26/22 08:40 146 H 10 L 97 09/26/22 08:40 101/71 09/26/22 08:35 179 H 12 98 09/26/22 08:35 102/70 09/26/22 08:30 161 H 14 95 09/26/22 08:30 106/78 09/26/22 08:25 166 H 19 95 09/26/22 08:25 124/82 09/26/22 08:20 162 H 20 97 09/26/22 08:20 122/82 09/26/22 08:15 179 H 18 94 09/26/22 08:15 112/75 09/26/22 08:10 180 H 13 96 09/26/22 08:10 104/71 09/26/22 08:05 190 H 14 97 09/26/22 08:05 119/82 09/26/22 08:04 119/75 09/26/22 08:04 201 H 12 95 09/26/22 08:01 201 H 16 09/26/22 08:01 97/72 L 09/26/22 08:00 205 H 14 09/26/22 07:55 200 H 15 09/26/22 07:52 178 H 13 94 09/26/22 08:39 160 H 102/70 09/26/22 07:59 180 H 20 91/67 L 98 09/26/22 07:32 36.5 C 104 H 18 88/66 L 96 O2 Del Method 09/26/22 14:00 09/26/22 13:57 09/26/22 13:57 09/26/22 13:45 09/26/22 13:41 09/26/22 13:41 09/26/22 13:30 09/26/22 13:23 09/26/22 13:23 09/26/22 13:15 09/26/22 13:00 09/26/22 12:53 09/26/22 12:53 Room Air 09/26/22 12:35 09/26/22 12:35 09/26/22 12:30 09/26/22 12:30 09/26/22 13:13 09/26/22 12:01 09/26/22 12:01 09/26/22 12:00 09/26/22 11:55 09/26/22 11:55 09/26/22 11:50 09/26/22 11:50 09/26/22 11:45 09/26/22 11:45 09/26/22 11:40 09/26/22 11:40 09/26/22 11:35 09/26/22 11:35 09/26/22 11:30 09/26/22 11:30 09/26/22 11:26 09/26/22 11:26 09/26/22 11:20 09/26/22 11:20 09/26/22 11:15 09/26/22 11:15 09/26/22 11:10 09/26/22 11:10 09/26/22 11:05 09/26/22 11:05 09/26/22 11:00 09/26/22 11:00 09/26/22 10:56 09/26/22 10:56 09/26/22 10:51 09/26/22 10:51 09/26/22 10:50 09/26/22 10:45 09/26/22 10:45 09/26/22 10:40 09/26/22 10:40 09/26/22 10:36 09/26/22 10:36 09/26/22 10:26 09/26/22 10:26 09/26/22 10:20 09/26/22 10:20 09/26/22 10:15 09/26/22 10:15 09/26/22 10:10 09/26/22 10:10 09/26/22 10:06 09/26/22 10:06 09/26/22 10:00 09/26/22 10:00 09/26/22 09:55 09/26/22 09:55 09/26/22 09:50 09/26/22 09:50 09/26/22 09:47 09/26/22 09:47 09/26/22 09:40 09/26/22 09:40 09/26/22 09:35 09/26/22 09:35 09/26/22 09:30 09/26/22 09:30 09/26/22 09:25 09/26/22 09:25 09/26/22 09:20 09/26/22 09:20 09/26/22 09:15 09/26/22 09:15 09/26/22 09:10 09/26/22 09:10 09/26/22 09:05 09/26/22 09:05 09/26/22 09:00 09/26/22 09:00 09/26/22 08:56 09/26/22 08:56 09/26/22 08:55 09/26/22 08:50 09/26/22 08:50 09/26/22 08:46 09/26/22 08:46 09/26/22 08:45 09/26/22 08:40 09/26/22 08:40 09/26/22 08:35 09/26/22 08:35 09/26/22 08:30 09/26/22 08:30 09/26/22 08:25 09/26/22 08:25 09/26/22 08:20 09/26/22 08:20 09/26/22 08:15 09/26/22 08:15 09/26/22 08:10 09/26/22 08:10 09/26/22 08:05 09/26/22 08:05 09/26/22 08:04 09/26/22 08:04 09/26/22 08:01 09/26/22 08:01 09/26/22 08:00 09/26/22 07:55 09/26/22 07:52 09/26/22 08:39 09/26/22 07:59 Room Air 09/26/22 07:32 Room Air Coding Level of Care Code Critical Care 1st 30-74 mins Diagnoses Atrial fibrillation with RVR I48.91 HTN (hypertension) I10 Hypokalemia E87.6 COVID U07.1 Dyslipidemia E78.5 Time Spent (min) 55
--- NOTE | 2022-09-26 14:42 | Electrocardiogram Report ---
Test Reason : Blood Pressure : / mmHG Vent. Rate : 167 BPM Atrial Rate : 089 BPM P-R Int : 000 ms QRS Dur : 086 ms QT Int : 294 ms P-R-T Axes : 000 -15 113 degrees QTc Int : 490 ms Poor data quality, interpretation may be adversely affected Atrial fibrillation with rapid ventricular response Low voltage QRS Abnormal ECG When compared with ECG of 26-SEP-2022 07:40, HR has decreased by 29 bpm Reconfirmed by Joel James ([id number]) on 09/26/2022 2:44:36 PM Referred By: REFERRED SELF Confirmed By:Joel James
--- NOTE | 2022-09-26 14:42 | Electrocardiogram Report ---
Test Reason : Blood Pressure : / mmHG Vent. Rate : 196 BPM Atrial Rate : 163 BPM P-R Int : 000 ms QRS Dur : 084 ms QT Int : 262 ms P-R-T Axes : 000 -40 086 degrees QTc Int : 473 ms Atrial fibrillation with rapid ventricular response Left axis deviation Abnormal ECG When compared with ECG of 24-SEP-2022 09:26, HR has increased by 120 bpm Atrial fibrillation now present Reconfirmed by Joel James ([id number]) on 09/26/2022 2:43:46 PM Referred By: REFERRED SELF Confirmed By:Joel James
--- NOTE | 2022-09-26 14:45 | Electrocardiogram Report ---
Test Reason : Blood Pressure : / mmHG Vent. Rate : 086 BPM Atrial Rate : 086 BPM P-R Int : 168 ms QRS Dur : 086 ms QT Int : 358 ms P-R-T Axes : 045 -54 068 degrees QTc Int : 428 ms Sinus rhythm with occasional Premature ventricular complexes and Premature atrial complexes Left axis deviation Low voltage QRS Abnormal ECG When compared with ECG of 26-SEP-2022 08:16, Atrial fibrillation no longer present HR has decreased by 81 bpm Confirmed by Joel James ([id number]) on 09/26/2022 2:45:34 PM Referred By: REFERRED SELF Confirmed By:Joel James
[2022-09-26] MEDS ORDERED: STAT IV Infusion **Titration per Protocol STA (15:06)
[2022-09-26] MEDS ORDERED: ESMOLOL BOLUS FROM BAG IV ONE (15:06)
[2022-09-26] MEDS ORDERED: ESMOLOL / NSS 2,500 MG/250 ML BAG IV SCH (15:15)
[2022-09-26] MEDS: APIXABAN 5 MG TABLET PO SCH (20:01)
[2022-09-26] MEDS: AMIODARONE / D5W 360 MG/200 ML BAG IV SCH (20:02)
[2022-09-27 06:35] LABS: Basophils # (auto) 0.01 K/uL (0-0.2); Basophils % (auto) 0.3 %; Echinocytes 1+; Eosinophils # (auto) 0.01 K/uL (0-0.50); Eosinophils % (auto) 0.3 %; Hematocrit (blood only) 39.6 % (40.1-51.0); Hemoglobin 14.5 g/dl (14.0-18.0); Lymphocytes # (auto) 1.33 K/uL (1.2-3.4); Lymphocytes % (auto) 33.8 %; Mean Corpuscular Hemoglobin 32.1 pg (25.0-34.0); Mean Corpuscular Hgb Conc 36.6 g/dL (32.0-36.0); Mean Corpuscular Volume 87.6 fL (80.0-100.0); Monocytes # (auto) 0.37 K/uL (0.24-0.82); Monocytes % (auto) 9.4 %; Neutrophils # (auto) 2.21 K/uL (1.4-6.5); Neutrophils % (auto) 56.2 %; Platelet Count 98 K/uL (130-400); Platelet Estimate Decreased (Normal); RDW Coefficient of Variation 11.9 % (11.5-14.5); RDW Standard Deviation 38.6 fL (36.4-46.3); Red Blood Count 4.52 M/uL (4.63-6.08); White Blood Count 3.93 K/ul (4.8-10.8)
[2022-09-27 06:50] LABS: BUN Creatinine Ratio 15.3 (10-20); Calcium 7.6 mg/dl (8.5-10.1); Creatinine Clr Calc Pharmacy 137.3 ml/min; Est GFR (African American) 113.5 ml/min; Est GFR (Non-African American) 97.9 ml/min; Phosphorus 1.9 mg/dl (2.5-4.9); Potassium 3.9 mmol/L (3.5-5.1)
--- NOTE | 2022-09-27 08:10 | Critical Care Progress Note ---
Date of Service September 27, 2022 Assessment & Plan (1) Atrial fibrillation with RVR: Plan: Reason Critically Ill: 67-year-old male presenting with A. fib with RVR after recently responding to electrocardioversion now with heart rates in the 160s. Requiring close monitoring and ongoing intervention for that with RVR Soft pressures. NEURO - * CAM ICU: NEGATIVE CARDIAC/VASCULAR - * A. fib with RVR: * Initially cardioverted electrically on 09/24. Returns today with sensation of palpitations and rapid heart rate. Received metoprolol with conversion back to normal sinus rhythm. Returned to A. fib. Received amiodarone bolus and drip which did work temporarily for cardioversion as well. Unfortunately, the patient converted back to A. fib with RVR. Rates were high in the 160s to 170s. * Patient received an additional Amiodarone bolus of 150 mg and a 500 mL No rmosol bolus upon arrival to the ICU. * Converted to SR at 1518. * Has remained in NSR overnight. * Amiodarone gtt now at 0.5 mg/min - will defer to cardiology for placing on PO. * Continue with apixaban. * Hold home antihypertensive medications. * NSTEMI: * Likely represent demand ischemia in the tachycardic, A. fib patient. * Troponins have likely been downtrending from prior admission. * No complaints of CP or significant ST changes on EKG. * Pericardial effusion: * Slight increase from prior. * Less likely contributing significantly at this time. * Defer to cardiology for continued management. * Monitor on telemetry. RESPIRATORY - * No h/o pulmonary disease. * Saturating well on room air. GI/NUTRITION - * Tolerating heart healthy diet. RENAL/LYTES - * Hypokalemia: * Will replace as patient would benefit from potassium level greater than 4 and magnesium level >2. - * Strict I&Os. ENDO - * No h/o DM or thyroid Dz * BSGs per unit protocol. ISS --> gtt per unit policy. HEME - * Stable H&H ID - * No concerns for infectious contribution at this time. LINES/IV ACCESS - * PIVs x2 DVT PROPHYLAXIS - * Continue Eliquis * SCDs Thank you for allowing us to participate in the care of this patient. Patient is stable for downgrade from the ICU at this time. Please refer to my attending physician's documentation for any further recommendations. (2) HTN (hypertension): (3) Hypokalemia: (4) COVID: (5) Dyslipidemia: Admission and Anticipated Discharge Date Admission Date: September 26, 2022 Supervising Physician Co-Signing Physician Notes Patient seen and examined. EMR reviewed. Discussed with bedside critical care nurse as well as critical care FRANCO. Agree with assessment plan as noted. Patient is converted with amiodarone. He is hemodynamically stable. He remains on IV amiodarone at this point time. We will increase his metoprolol to 50 mg twice daily this morning. May need to adjust his FLORENCE inhibitor. Defer to cardiology long-term decisions regarding his transition from IV to oral amiodarone. Also defer to cardiology follow-up echocardiogram given the small loculated pericardial effusion without tamponade physiology. Patient is stable to transfer out of the ICU. Critical care services will sign off. Care will be dictated by hospitalist and cardiology team at this point time. Feel free to contact us with questions or concerns. Subjective Patient seen and evaluated at bedside this morning. Nursing notes reviewed. No overnight events. Patient remains in normal sinus rhythm since 1500 yesterday. Electrolytes have been replaced. Potassium is 3.9 today. Patient offers no other complaints. He has been using the toilet without issues. Specifically, patient denies complaints of chest pain, palpitations, shortness of breath, dizziness, lightheadedness, or diaphoresis Review of Systems Review of Systems: A complete 10 point review of systems was reviewed with the patient with pertinent positives and negatives as per history of present illness. All else were negative. Physical Exam Physical Exam: VITAL SIGNS - Vital signs and nursing notes were reviewed. GENERAL - 67-year-old male appearing his stated age who is in no acute distress. Communicates well with provider and answers questions appropriately. LUNGS - Chest wall symmetric without accessory muscle use, intercostals retractions, or central cyanosis. Normal vesicular breath sounds CTA B/L. No w heezes, rales, or rhonchi appreciated. CARDIAC - Irregularly irregularly irregular rhythm. No murmur, rubs, or gallops appreciated. ABDOMEN - Abdominal contour flat without pulsations or visible masses. BS normoactive all four quadrants. No tenderness, palpable masses, hepatosplenomegaly, or ascites noted. EXTREMITIES - No clubbing or peripheral cyanosis. No pretibial edema present. +3/5 radial and dorsalis pedis pulses palpated throughout. +5/5 strength noted in UE/LE bilaterally. NEUROLOGIC - Cranial nerves II through XII grossly intact. Sensory intact to light touch throughout. PSYCH - A&Ox3 and cooperates fully with examiner. Pt is very pleasant and interacts well with examiner. Results & Data Results & Data ([facility]) Vital Signs (Past 12 Hours) Vital Signs Temp Pulse Resp BP Pulse Ox 09/27/22 06:38 95 09/27/22 06:38 141/91 H 09/27/22 06:37 96 09/27/22 06:37 157/93 H 09/27/22 06:10 153/90 H 09/27/22 06:10 71 19 94 09/27/22 06:00 68 21 94 09/27/22 05:50 70 16 94 09/27/22 05:40 73 15 96 09/27/22 05:30 70 17 94 09/27/22 05:20 69 15 97 09/27/22 05:10 69 19 96 09/27/22 05:09 72 18 96 09/27/22 05:09 147/85 H 09/27/22 05:00 66 16 92 09/27/22 04:50 66 15 95 09/27/22 04:40 62 16 95 09/27/22 04:30 70 12 95 09/27/22 04:20 60 14 94 09/27/22 04:10 59 L 15 95 09/27/22 04:09 70 15 94 09/27/22 04:09 136/74 09/27/22 04:00 63 16 93 09/27/22 03:50 74 12 96 09/27/22 03:40 62 18 96 09/27/22 03:30 62 16 94 09/27/22 03:20 64 16 93 09/27/22 03:10 70 95 09/27/22 03:09 64 17 95 09/27/22 03:09 129/76 09/27/22 03:00 70 15 96 09/27/22 02:50 68 94 09/27/22 02:40 63 13 96 09/27/22 02:30 68 14 96 09/27/22 02:20 62 17 96 09/27/22 02:10 61 18 95 09/27/22 02:09 119/75 01/10/23 02:09 63 14 95 09/27/22 02:00 62 15 94 09/27/22 01:50 62 16 93 09/27/22 01:40 68 16 95 09/27/22 01:30 68 15 94 09/27/22 01:20 60 20 94 09/27/22 01:10 61 17 93 09/27/22 01:09 125/68 09/27/22 01:09 61 15 92 09/27/22 01:00 62 12 93 09/27/22 00:50 69 12 95 09/27/22 00:40 61 16 95 09/27/22 00:30 65 17 95 09/27/22 00:20 61 17 95 09/27/22 00:10 61 17 93 09/27/22 00:09 116/67 09/27/22 00:09 69 15 93 09/27/22 00:00 60 15 93 09/26/22 23:50 63 19 96 09/26/22 23:40 60 22 94 09/26/22 23:30 68 12 95 09/26/22 23:20 62 14 95 09/26/22 23:10 62 16 95 09/26/22 23:09 119/76 09/26/22 23:09 63 15 93 09/26/22 23:00 68 19 95 09/26/22 22:50 66 17 94 09/26/22 22:43 67 13 95 09/26/22 22:43 126/71 09/26/22 22:40 72 17 92 09/26/22 22:30 69 17 96 09/26/22 22:20 60 17 94 09/26/22 22:10 74 19 96 09/26/22 22:09 127/78 09/26/22 22:09 67 16 94 09/26/22 22:00 65 15 94 09/26/22 21:50 69 14 95 09/26/22 21:40 75 18 95 09/27/22 00:00 36.6 C 09/26/22 23:42 68 09/26/22 20:10 71 18 96 09/26/22 20:09 118/80 09/26/22 20:09 69 19 95 09/26/22 20:05 68 Coding Level of Care Code 24626 SUB INP/OBS CARE 3/50MIN Diagnoses Atrial fibrillation with RVR I48.91 HTN (hypertension) I10 Hypokalemia E87.6 COVID U07.1 Dyslipidemia E78.5 Time Spent (min) 32
[2022-09-27] MEDS: METOPROLOL SUCC 50MG EXT REL TAB PO SCH (09:23)
[2022-09-27] MEDS: AMIODARONE / D5W 360 MG/200 ML BAG IV SCH (09:24)
[2022-09-27] MEDS: APIXABAN 5 MG TABLET PO SCH ×2 (09:24→20:08)
[2022-09-27] MEDS: ROSUVASTATIN CALCIUM 10 MG TAB PO SCH (09:25)
--- NOTE | 2022-09-27 10:03 | Hospitalist Progress Note ---
Date of Service September 27, 2022 Assessment & Plan (1) Paroxysmal atrial fibrillation: Plan: Afib RVR s/p Electrical Cardioversion Discharged home after stabilization on Apixaban and metoprolol, but comes back after palpitations and found to be in rapid ventricular response -Started on Amiodarone drip, heart rate is now under better control -Cardiology on consult, will defer to them regarding transitioning to PO -Continue Eliquis Echo shows mild pericardial effusion, normal EF, no evidence of tamponade (2) Pericardial effusion: Plan: -Seen on ECHO -No evidence of tamponade (3) Elevated troponin: Plan: -Most likely due to demand ischemia on account of rapid ventricular rate No history of PA/CHF Troponin trend (4) COVID: Plan: Nonvaccinated No hypoxia, lungs are clear without wheezes/rales No steroids or remdesivir indicated at this time Is anticoagulated for A. fib above continue supportive care at this time, no additional treatment indicated. (5) HTN (hypertension): Plan: -Stable -Lisinopril held for relative hypotension after IV metoprolol as above, resume today - Continue Metoprolol as noted (6) Obesity (BMI 30.0-34.9): Plan: adviced on diet and exercise Plan DVT PPx: On Apixaban Diet: HHD Code Status: Full Disposition: icu, ok for downgrade Admission and Anticipated Discharge Date Admission Date: September 26, 2022 Subjective patient seen and examined in the ICU, awake and alert, denies chest pains or palpitations Review of Systems Review of Systems: All systems reviewed are negative, apart from the ones contained in the history. Physical Exam Physical Exam: The patient is awake, alert and oriented 3, well developed and well nourished, normocephalic and atraumatic, lying in bed and in no acute distress. HEENT--PERRL, EOMI, mucous membranes and oropharynx mildly dry Neck--supple. No JVD. No bruits. Thyroid normal, trachea midline, no adenopathy. Heart--normal S1 and S2. No murmurs, rubs or gallops. Lungs--clear bilaterally, no respiratory distress, no accessory muscle use. Abdomen--normal bowel sounds and soft. Mild epigastric and left sided abdominal pain Extremities--no cyanosis or clubbing. No edema. Dermatologic--normal skin turgor, normal color, no abnormal lymph nodes, no rash. Neurologic--cranial nerves II through XII grossly intact. Rheumatologic--normal range of motion. Psychiatric--normal affect. Results & Data Results & Data ([facility]) Vital Signs (Past 12 Hours) Vital Signs Temp Pulse Resp BP Pulse Ox O2 Del Method 09/27/22 08:23 Room Air 09/27/22 08:00 71 09/27/22 06:38 95 09/27/22 06:38 141/91 H 09/27/22 06:37 96 09/27/22 06:37 157/93 H 09/27/22 06:10 153/90 H 09/27/22 06:10 71 19 94 09/27/22 06:00 68 21 94 09/27/22 05:50 70 16 94 09/27/22 05:40 73 15 96 09/27/22 05:30 70 17 94 09/27/22 05:20 69 15 97 09/27/22 05:10 69 19 96 09/27/22 05:09 72 18 96 09/27/22 05:09 147/85 H 09/27/22 05:00 66 16 92 09/27/22 04:50 66 15 95 09/27/22 04:40 62 16 95 09/27/22 04:30 70 12 95 09/27/22 04:20 60 14 94 09/27/22 04:10 59 L 15 95 09/27/22 04:09 70 15 94 09/27/22 04:09 136/74 09/27/22 04:00 63 16 93 09/27/22 03:50 74 12 96 09/27/22 03:40 62 18 96 09/27/22 03:30 62 16 94 09/27/22 03:20 64 16 93 09/27/22 03:10 70 95 09/27/22 03:09 64 17 95 09/27/22 03:09 129/76 09/27/22 03:00 70 15 96 09/27/22 02:50 68 94 09/27/22 02:40 63 13 96 09/27/22 02:30 68 14 96 09/27/22 02:20 62 17 96 09/27/22 02:10 61 18 95 09/27/22 02:09 119/75 09/27/22 02:09 63 14 95 09/27/22 02:00 62 15 94 09/27/22 01:50 62 16 93 09/27/22 01:40 68 16 95 09/27/22 01:30 68 15 94 09/27/22 01:20 60 20 94 09/27/22 01:10 61 17 93 09/27/22 01:09 125/68 09/27/22 01:09 61 15 92 09/27/22 01:00 62 12 93 09/27/22 00:50 69 12 95 09/27/22 00:40 61 16 95 09/27/22 00:30 65 17 95 09/27/22 00:20 61 17 95 09/27/22 00:10 61 17 93 09/27/22 00:09 116/67 09/27/22 00:09 69 15 93 09/27/22 00:00 60 15 93 09/26/22 23:50 63 19 96 09/26/22 23:40 60 22 94 09/26/22 23:30 68 12 95 09/26/22 23:20 62 14 95 09/26/22 23:10 62 16 95 09/26/22 23:09 119/76 09/26/22 23:09 63 15 93 09/26/22 23:00 68 19 95 09/26/22 22:50 66 17 94 09/26/22 22:43 67 13 95 09/26/22 22:43 126/71 09/26/22 22:40 72 17 92 09/26/22 22:30 69 17 96 09/26/22 22:20 60 17 94 09/26/22 22:10 74 19 96 09/26/22 22:09 127/78 09/26/22 22:09 67 16 94 09/27/22 00:00 97.9 F 09/26/22 23:42 68 PG Care Time/CCT Total # of Minutes Spent Total Time Spent with Patient: Total time spent is greater than 50% in coordination of care (as documented) at patient's floor/unit and/or counseling patient: Coding Level of Care Code 26516 SUB INP/OBS CARE 2/35MIN Diagnoses Paroxysmal atrial fibrillation I48.0 Pericardial effusion I31.39 Elevated troponin R77.8 COVID U07.1 HTN (hypertension) I10 Obesity (BMI 30.0-34.9) E66.9 Time Spent (min) 35
--- NOTE | 2022-09-27 10:05 | Cardiology Progress Note ---
Date of Service September 27, 2022 Assessment & Plan (1) Atrial fibrillation with RVR: Plan Impression: 1. Afib RVR in the setting of COVID positive status 2. Echocardiogram 09/25 demonstrating small increase in small pericardial effusion. Normal LVF with EF of 65% 3. Hypotension resolved, now mildly hypertensive 4. Elevated troponin secondary to demand ischemia Mr. Karimi has converted to a sinus rhythm and is maintaining. He will be started on 400 mg bid amiodarone and should overlap with IV amiodarone for 24 hours. Continue apixaban for stroke prophylaxis. I will order an EKG. Troponins have trended down. His echo is without wall motion abnormalities and his ejection fraction is normal. He had a mild pericardial effusion on his echocardiogram 09/24 with only mild increase on repeat echo 09/25. No sign of tamponade. His blood pressures have recovered. After the 24 hour overlap on the amiodarone drip is completed, he can be discharged from a cardiac perspective. He should continue with the amiodarone and Eliquis at discharge and we will see him in the office for follow up. Patient's was updated over the phone. Admission and Anticipated Discharge Date Admission Date: September 26, 2022 Subjective Mr. Karimi maintained a sinus rhythm over the night. He continues today. He feels better this morning. No palpitations, sob, or chest pain. His appetite has returned. He was up and moving around the room today without lightheadedness Review of Systems Review of Systems: All systems reviewed & are unremarkable except as noted in HPI & below Physical Exam Physical Exam: physical exam deferred - phone discussion given patient's COVID positive status and on airborne precautions. Results & Data ([facility]) Vital Signs (Past 12 Hours) Vital Signs Temp Pulse Resp BP Pulse Ox O2 Del Method 09/27/22 08:23 Room Air 09/27/22 08:00 71 09/27/22 06:38 95 09/27/22 06:38 141/91 H 09/27/22 06:37 96 09/27/22 06:37 157/93 H 09/27/22 06:10 153/90 H 09/27/22 06:10 71 19 94 09/27/22 06:00 68 21 94 09/27/22 05:50 70 16 94 09/27/22 05:40 73 15 96 09/27/22 05:30 70 17 94 09/27/22 05:20 69 15 97 09/27/22 05:10 69 19 96 09/27/22 05:09 72 18 96 09/27/22 05:09 147/85 H 09/27/22 05:00 66 16 92 09/27/22 04:50 66 15 95 09/27/22 04:40 62 16 95 09/27/22 04:30 70 12 95 09/27/22 04:20 60 14 94 09/27/22 04:10 59 L 15 95 09/27/22 04:09 70 15 94 09/27/22 04:09 136/74 09/27/22 04:00 63 16 93 09/27/22 03:50 74 12 96 09/27/22 03:40 62 18 96 09/27/22 03:30 62 16 94 09/27/22 03:20 64 16 93 09/27/22 03:10 70 95 09/27/22 03:09 64 17 95 09/27/22 03:09 129/76 09/27/22 03:00 70 15 96 09/27/22 02:50 68 94 09/27/22 02:40 63 13 96 09/27/22 02:30 68 14 96 09/27/22 02:20 62 17 96 09/27/22 02:10 61 18 95 09/27/22 02:09 119/75 09/27/22 02:09 63 14 95 09/27/22 02:00 62 15 94 09/27/22 01:50 62 16 93 09/27/22 01:40 68 16 95 09/27/22 01:30 68 15 94 09/27/22 01:20 60 20 94 09/27/22 01:10 61 17 93 09/27/22 01:09 125/68 09/27/22 01:09 61 15 92 09/27/22 01:00 62 12 93 09/27/22 00:50 69 12 95 09/27/22 00:40 61 16 95 09/27/22 00:30 65 17 95 09/27/22 00:20 61 17 95 09/27/22 00:10 61 17 93 09/27/22 00:09 116/67 09/27/22 00:09 69 15 93 09/27/22 00:00 60 15 93 09/26/22 23:50 63 19 96 09/26/22 23:40 60 22 94 09/26/22 23:30 68 12 95 09/26/22 23:20 62 14 95 09/26/22 23:10 62 16 95 09/26/22 23:09 119/76 09/26/22 23:09 63 15 93 09/26/22 23:00 68 19 95 09/26/22 22:50 66 17 94 09/26/22 22:43 67 13 95 09/26/22 22:43 126/71 09/26/22 22:40 72 17 92 09/26/22 22:30 69 17 96 09/26/22 22:20 60 17 94 09/26/22 22:10 74 19 96 09/26/22 22:09 127/78 09/26/22 22:09 67 16 94 09/26/22 22:00 65 15 94 09/27/22 00:00 36.6 C 09/26/22 23:42 68
--- NOTE | 2022-09-27 11:50 | Electrocardiogram Report ---
Test Reason : Blood Pressure : / mmHG Vent. Rate : 066 BPM Atrial Rate : 066 BPM P-R Int : 158 ms QRS Dur : 088 ms QT Int : 450 ms P-R-T Axes : 012 -33 027 degrees QTc Int : 471 ms Normal sinus rhythm Left axis deviation Abnormal ECG When compared with ECG of 26-SEP-2022 08:38, Premature ventricular complexes are no longer Present Premature atrial complexes are no longer Present Confirmed by Joel James ([id number]) on 09/27/2022 11:49:28 AM Referred By: REFERRED SELF Confirmed By:Joel James
[2022-09-27] MEDS: AMIODARONE 200 MG TAB PO SCH (18:20)
[2022-09-28] MEDS: AMIODARONE 200 MG TAB PO SCH (09:05)
[2022-09-28] MEDS: ROSUVASTATIN CALCIUM 10 MG TAB PO SCH (09:06)
[2022-09-28] MEDS: lisinopril 10 MG TAB PO SCH (09:06)
[2022-09-28] MEDS: APIXABAN 5 MG TABLET PO SCH (09:06)
[2022-09-28] MEDS: METOPROLOL SUCC 50MG EXT REL TAB PO SCH (09:06)
--- NOTE | 2022-09-28 09:26 | Cardiology Progress Note ---
Date of Service September 28, 2022 Assessment & Plan Admission and Anticipated Discharge Date Admission Date: September 26, 2022 Subjective Feels well, no sx's percarditis, NO CP/SOB, no more palps, feels back to toni jain Results & Data ([facility]) Vital Signs (Past 12 Hours) Vital Signs Temp Pulse Pulse Resp BP Pulse Ox O2 Del Method 09/28/22 07:35 36.8 C 70 18 156/86 H 98 Room Air 09/28/22 02:52 37.0 C 64 17 142/88 H 95 Room Air 09/27/22 23:00 59 L 09/27/22 22:57 36.9 C 65 17 133/76 95 Room Air Plan Impression: 1. Afib RVR in the setting of COVID positive status 2. Echocardiogram 09/25 demonstrating small increase in small pericardial effusion. Normal LVEF with EF of 65% 3. Hypotension resolved, now mildly hypertensive 4. Elevated troponin secondary to demand ischemia vs myocarditis from Covid Mr. Karimi has converted to a sinus rhythm and is maintaining. Amio IV stopped yesterday PM and remains on PO amio Ok to d/c home Apixaban 5mg BID Toprol 50mg daily Amiodarone 400mg BID today, tomorrow and Monday then 200mg BID We will arrange for OV and repeat echo with strain to assess myocardium and effusion in 2 weeks; call sooner if problems His blood pressures have recovered Today's visit was completed via phone given the patient being Covid +. I spent 11 minutes discussing his medical problems and Tx options. He consented to a phone visit and we confirmed his name and . I initiated the visit. I was home and the patient was in his hospital room.
--- NOTE | 2022-09-28 12:06 | Discharge Summary ---
Date of Service September 28, 2022 Admission HPI Per Admitting Provider Is a 67-year-old male, who came back to the hospital today when he noticed palpitations at home 6 AM. Of note he was discharged the day prior after he was diagnosed with atrial fibrillation with RVR. During the last hospital visit he was successfully cardioverted and his heart rate was maintained on metoprolol and was discharged home on apixaban. However he comes back to the hospital today after he complained of irregular heartbeat and palpitations. In the emergency department, he was started on amiodarone and cardiology was consulted. However while in the emergency department, it was noted that his blood pressure kept dropping and cardiology suggested admission to ICU. Of note during his last hospital admission just a couple of days ago, a 2D echo was done which showed evidence of a mild pericardial effusion. Also of note, he tested positive for COVID-19 during his last hospital admission. Principal Diagnosis afib Discharge Exam The patient is awake, alert and oriented 3, well developed and well nourished, normocephalic and atraumatic, lying in bed and in no acute distress. HEENT--PERRL, EOMI, mucous membranes and oropharynx mildly dry Neck--supple. No JVD. No bruits. Thyroid normal, trachea midline, no adenopathy. Heart--normal S1 and S2. No murmurs, rubs or gallops. Lungs--clear bilaterally, no respiratory distress, no accessory muscle use. Abdomen--normal bowel sounds and soft. Mild epigastric and left sided abdominal pain Extremities--no cyanosis or clubbing. No edema. Dermatologic--normal skin turgor, normal color, no abnormal lymph nodes, no rash. Neurologic--cranial nerves II through XII grossly intact. Rheumatologic--normal range of motion. Psychiatric--normal affect. Discharge Data Allergies Allergy/AdvReac Type Severity Reaction Status Date / Time No Known Allergies Allergy + Unverified 01/25/20 08:23 Consultations 09/26/22 08:42 ED Decision to Admit Stat 09/26/22 13:06 Consult Cardiology Routine 09/26/22 13:24 Consult Collection Systems Worker Routine Hospital Course (1) Paroxysmal atrial fibrillation: Afib RVR s/p Electrical Cardioversion Discharged home after stabilization on Apixaban and metoprolol, but comes back after palpitations and found to be in rapid ventricular response -Started on Amiodarone drip, heart rate is now under better control -Cardiology on consult, will defer to them regarding transitioning to PO -Continue Eliquis Echo shows mild pericardial effusion, normal EF, no evidence of tamponade -D/C home on Amiodarone 400mg BID x 3 days then 200mg BID. Toprol 50mg daily. Eliquis 5mg BID (2) Pericardial effusion: -Seen on ECHO -No evidence of tamponade (3) Elevated troponin: -Most likely due to demand ischemia on account of rapid ventricular rate No history of OR/CHF Troponin trend (4) COVID: Nonvaccinated No hypoxia, lungs are clear without wheezes/rales No steroids or remdesivir indicated at this time Is anticoagulated for A. fib above continue supportive care at this time, no additional treatment indicated. (5) HTN (hypertension): -Stable -Lisinopril held for relative hypotension after IV metoprolol as above, resume today - Continue Metoprolol as noted (6) Obesity (BMI 30.0-34.9): adviced on diet and exercise Plan DVT PPx: On Apixaban Diet: HHD Code Status: Full Disposition: icu, ok for downgrade Total Time Total Time Spent Total Time Spent (In Minutes): 35 Discharge Plan Discharge Items Patient Disposition: Home - Self-Care Reason For Visit: AFIB Discharge Diagnosis: afib Condition on Discharge: Good Activity: Resume your previous activity Non-emergency contact: Primary Care Provider and Bottle Blower Call non-emergency contact if: you have any medication questions and your symptoms worsen Follow-up/Referrals: Rae Wells CRNP [Nurse Practitioner] - 10/07/22 3:10 pm (appointment made with KEYON Wells for cardiology f/u) Diet: Regular Addtl Attending Provider Instructions: please make appointment to 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 Pending Studies at Discharge: No Stand-Alone Forms: My [employer], Smoking Cessation Medications and DC Order Prescriptions: New amiodarone 200 mg Tablet 400 mg PO BIDM 3 Days Qty: 12 0RF metoprolol succinate 50 mg Tablet Extended Release 24 Hr 50 mg PO DAILY 90 Days Qty: 90 0RF amiodarone 200 mg tablet 200 mg PO BID 30 Days Qty: 60 0RF Continued lisinopril [Zestril] 10 mg Tablet 10 mg PO QAM Qty: 0 rosuvastatin 10 mg tablet 25 mg PO DAILY Eliquis 5 mg Tablet 5 mg PO BID 90 Days Qty: 180 0RF Discontinued metoprolol succinate 25 mg tablet extended release 24 hr 25 mg PO DAILY Discharge Orders: Discharge Order (Routine); Ordered 09/28/22 Ordered By: Florina Canales Admission Data Admit Date/Time: 09/26/22 08:52 Attending Provider: Florina Canales Admit Provider: Florina Canales Primary Care Provider: Nathanael Lepe Other Providers: Adrian Newton ; Joel James ; Iggy Branch Other Interventions: Discharge Summary Assessment (RN) Last Done: 09/28/22 11:50 Coding Level of Care Code HOSP INP/OBS DISCH >30 MIN Diagnoses Paroxysmal atrial fibrillation I48.0 Pericardial effusion I31.39 Elevated troponin R77.8 COVID U07.1 HTN (hypertension) I10 Obesity (BMI 30.0-34.9) E66.9 Time Spent (min) 35
== END 2022-09-28 12:20 | disposition home or self-care (01) | DRG 308 ==
LOC: ED 07:30 → 1E 08:52 → 2E 09-27 16:49
DX: Z28.310 Unvaccinated for COVID-19; I31.39 Other pericardial effusion (noninflammatory); E66.9 Obesity, unspecified; I24.8 Other forms of acute ischemic heart disease; Z79.899 Other long term (current) drug therapy; E87.6 Hypokalemia; U07.1 COVID-19; I48.0 Paroxysmal atrial fibrillation; Z68.28 Body mass index [BMI] 28.0-28.9, adult; I10 Essential (primary) hypertension